=== PATIENT | male | born 1945 | race Caucasian/White ===

== ENCOUNTER 2019-08-05 13:44 | Inpatient (IN) | payer SELFPAY ==
[2019-08-05] VITALS (25 sets, daily range): BP systolic 83–151; BP diastolic 56–102; PULSE 47–87; RESP 12–26; TEMP 35.3–36.7; O2SAT 95–100; BMI 32.5; BMI 31.2
--- NOTE | 2019-08-05 14:01 | ED.DCSUM_ITS ---
- ER Visit Summary Date of Service: 08/05/19 Chief Complaint: Cardiac arrest History of Present Illness: The patient is a 74 M who presents by EMS after cardiac arrest. He has a history of HTN and BPH. No thinners. Witnessed fall at work. He was unresponsive. EMS found him in V. fib. He received 2 defibr illations, amnio 300 mg, and epinephrine x1. He had an iGel which was removed when he started regaining consciousness. On arrival, the patient is unable to provide history and has agonal respirations. The remainder of his history was obtained from his . She says that he was feeling well today. No recent illnesses. No known heart disease or history of blood clots. No other significant historical features. She says that he is full code, but if he is ever brain-, he would not want to be on life support. Physical Examination: Blood pressure 151/102. Heart rate 87. Temperature 95.6. Head and neck grossly atraumatic. Agonal respirations with coarse breath sounds. Heart regular. Abdomen soft. Skin appears slightly pale. Test Results: See below Emergency Department Course and Treatment: Patient was seen immediately on arrival. He had agonal respirations and a GCS of 6. He was intubated by me. He was pretreated with etomidate and succinylcholine. Glidescope was used and successful after one attempt. 7.5 ET tube was placed, 24 at the lip. Good breath sounds, quiet stomach, good capnography. Patient had 2 IVs placed. OG and Truj[place] placed. Hypothermia equipment is not available. He was started on propofol for sedation. ABG showed a pH of 7.25, CO2 45, oxygen 286. White count 11.7, platelets 148, potassium 3.1, chloride 108, glucose 287, creatinine 1.45. Troponin normal. Magnesium normal. Chest x-ray showed nothing significant except his ET tube was at the wellington. This was removed by 2 cm. Patient does have some agitation on propofol. He also received fentanyl. There was concern he may be posturing. CT brain was ordered. Patient was treated with potassium chloride for his hypokalemia. We are awaiting CT results. I have spoken with ICU, hospitalist, cardiology. CT brain is negative. Ultrasound is at the bedside checking an echocardiogram. If it is abnormal, he will go to cardiac catheterization. If it is normal, he will be monitored in the ICU. His pressures are improved after a fluid bolus. His sedation is improved after fentanyl. Family was updated. Hospitalist was updated. He will be admitted in ICU. Treatment Plan: As above Disposition: Admit to ICU Impression: 1. ROSC, VF arrest 2. Hypokalemia 3. Hyperglycemia This note was generated with [employer] dictation software. It may contain incorrect words, spelling, and punctuation that were not noted in review of the chart prior to signing ED Disposition - Plan for ED Patient: Referrals: Manjit Colmenares DO [Primary Care Provider] -
--- NOTE | 2019-08-05 14:02 | EKG12_ITS ---
Test Reason : REPEAT Blood Pressure : / mmHG Vent. Rate : 080 BPM Atrial Rate : 326 BPM P-R Int : 000 ms QRS Dur : 118 ms QT Int : 414 ms P-R-T Axes : 000 003 -54 degrees QTc Int : 477 ms Undetermined rhythm Septal infarct , age undetermined Abnormal ECG Confirmed by MALCOM MORAN ([id number]), science editor HEMA BEVERLY ([id number]) on 08/08/2019 11:16:48 AM Referred By: Venkata Gann Confirmed By:MALCOM MORAN
--- NOTE | 2019-08-05 14:08 | RAD_ITS ---
STUDY: X-RAY CHEST REASON FOR EXAM: Male, 74 years old. Chest pain. Post arrest. TECHNIQUE: Single AP portable view of the chest. COMPARISON: None. FINDINGS: An endotracheal tube is in situ. The tip is at the level of the wellington. It should be pulled back 3 cm. An orogastric tube is seen with the tip in the body of the stomach. Mass or congestion. There is no demonstrated pleural abnormality. There is borderline cardiomegaly. Normal mediastinum and pola. Normal visualized pulmonary arteries. There is atherosclerotic calcification of the aortic arch with tortuosity. Normal visualized thoracic spine. Normal visualized ribs, clavicles, and shoulders. There is no demonstrated abnormality of the visualized soft tissue structures of the upper abdomen. RAD/Chest 1 View (Portable) IMPRESSION: Gastric congestion. The tip of the endotracheal tube is at the level of the wellington. This should be pulled back 3 cm. Electronically Signed: Jerardo Aguillon, at 14:45 EST , Service support ,
--- NOTE | 2019-08-05 14:09 | CM.ED ---
Social Work Consult: Unresponsive Informant: Nursing staff Met with patient spouse, Berenice and son in [facility]. Emotional support and active listening provided. Sarah COUCH, ZOYA
--- NOTE | 2019-08-05 14:17 | CT_ITS ---
STUDY: CT BRAIN WITHOUT CONTRAST REASON FOR EXAM: Male, 74 years old. Unresponsive. Witnessed arrest. RADIATION DOSAGE (If Supplied By Facility): CTDIvol = ( 44.99 ) mGy, DLP = ( 812.98 ) mGycm TECHNIQUE: Transaxial CT imaging of the brain was performed without administration of intravenous contrast material. Individualized dose optimization techniques were used for this CT. COMPARISON: No relevant priors. FINDINGS: Normal soft tissue structures. Normal calvarium. There is mild cerebral atrophy with widening of the extra-axial spaces and ventricular dilatation. Normal white matter tracts of the cerebral hemispheres. Normal basal ganglia and thalami. Normal brainstem. Normal cerebellum. There is no intracranial hemorrhage. There are no findings of an acute ischemic infarction. Atherosclerotic calcification of the vertebral arteries and cavernous portions of the internal carotid arteries bilaterally. Normal visualized paranasal sinuses. CT/Brain/Head without Contrast IMPRESSION: Chronic involutional changes of the brain. N.B. : The above information has been verbally conveyed by Jerardo Aguillon to Andres Kayla on 08/05/2019 15:48:24 (ET). Electronically Signed: Jerardo Aguillon, at 15:51 EST , Service support ,
[2019-08-05 14:23] LABS: Absolute Lymphocyte Count 5.06 X10^3/uL (0.83-4.51); Absolute Neutrophil Count 5.2 X10^3/uL (2.0-7.7); Basophil% 0.9 % (0-1); Eosinophil# 0.08 X10^3/uL; Eosinophils% 0.7 % (0-5); Hemoglobin 14.3 g/dL (13.0-16.5); Lymphocyte # 5.06 X10^3/ul (4.0); Lymphocyte % 43.3 % (19-41); Mean Corp Hgb Conc 32.5 g/dL (32-36); Mean Corpuscular Hgb 29.9 pg (27.0-32.0); Mean Corpuscular Volume 92.1 fL (80-94); Mean Platelet Vol. 10.4 fl (6.2-12.0); Monocyte# 0.82 X10^3/uL; NRBC Flagged by Analyzer 0 % (0-5); Neutrophil # 5.17 X10^3/uL (2.7-7.7); Neutrophil % 44.2 % (47-70); POSITIVE DIFFERENTIAL YES; Platelet Count 148 K/mm3 (150-450); RBC Distribution Width CV 12.7 % (11.6-14.6); RBC Distribution Width SD 43.2 fl (35.1-43.9); Red Blood Count 4.78 M/mm3 (4.6-6.2); White Blood Count 11.7 K/mm3 (4.4-11.0)
[2019-08-05 14:28] LABS: Differential Indicated SCAN CRITERIA MET
[2019-08-05] MEDS: Propofol 10MG/Ml 1,000 MG/100 ML Bottle 5.6 MG CONT INF ×2 (14:30→17:30)
[2019-08-05 14:37] LABS: Anion Gap 12 (5-15); BUN 14 mg/dL (7-18); BUN/Creat Ratio 9.7 RATIO (10-20); Calcium,Total 8.9 mg/dL (8.5-10.1); Chloride 108 mmol/L (98-107); Creatinine, Serum 1.45 mg/dL (0.70-1.30); EST Glomerular Filtration Rate 50 mL/min (>60); Est Glom Filt Rate - Afr Amer 61 mL/min (>60); Estimated Creatinine Clearance 40.52 ml/min; Glucose 287 mg/dL (74-106); Magnesium 2.1 mg/dL (1.6-2.6); Potassium 3.1 mmol/L (3.5-5.1); Sodium Level 141 mmol/L (136-145)
[2019-08-05 14:46] LABS: Base Excess -7 mmol/L (-2 to +2); Bicarbonate 19.8 mmol/L (22-26); Blood Gas Specimen Type ART; FI02 100; Mode A-C; O2 Delivery Device Vent; PEEP 5; PO2 286 mmHG (75-100); RR 12; SITE R Brachial; SO2 100 % (95-99); Time Given 1437; Total Carbon Dioxide 21 mmol/L; Vt 450; pCO2 45.2 mmHg (35-45); pH 7.25 (7.35-7.45)
[2019-08-05] MEDS: fentaNYL 100 MCG/2 ML Ampul 50 MCG IV ×3 (15:04→16:18)
[2019-08-05] MEDS: 0.9% Normal Saline 1,000 ML 999 ML IV (15:18)
[2019-08-05 15:27] LABS: International Normalized Ratio 1.2; Prothrombin Time (Protime)PT. 14.7 SECONDS (11.7-14.9)
[2019-08-05 15:28] LABS: Partial Thromboplast Time 27.9 Seconds (24.1-36.2)
--- NOTE | 2019-08-05 15:41 | ECHOCS_ITS ---
Reason For Study: Arrhythmia Procedure This was a 2D Doppler, Color Flow transthoracic echocardiogram. The study was technically difficult. Contrast injection was performed. Exam performed portable in ED. Left Ventricle Moderately dilated left ventricle. The estimated ejection fraction is 35 %. Unable to assess diastolic dysfunction due to arrhythmia. There is moderate to severe global hypokinesis of the left ventricle. Right Ventricle Normal size and thickness. Normal systolic function. Atria The left atrium is moderately enlarged. Normal right atrium. Normal atrial septum. Mitral Valve The mitral valve is structurally normal. No prolapse or stenosis seen. Trivial mitral valve insufficiency. Tricuspid Valve Normal tricuspid valve. Mild (1+) tricuspid valve insufficiency. Right ventricular systolic pressure estimated to be 38 mmHg. Aortic Valve Trisinus/trileaflet aortic valve. Mild diffuse aortic valve thickening. There is no aortic stenosis. Pulmonic Valve The pulmonic valve is not well visualized. Great Vessels Normal aortic root. Normal arch. Normal inferior vena cava. Inferior vena cava collapse with sniff. Pericardium/Pleural No pericardial effusion. Medication Diluted definity 2ml given slow IV push to enhance endocardial definition. MMode/2D Measurements & Calculations LVIDd: 5.1 cm IVSd: 1.3 cm LA dimension: 4.1 cm LVIDs: 4.1 cm LVPWd: 0.94 cm FS: 19.2 % LAV(MOD-bp): 73.4 ml LVAd ap4: 38.2 cm2 SV(MOD-sp4): 50.4 ml LAV(MOD-sp2): 68.3 ml EDV(MOD-sp4): 149.8 ml LAV(MOD-sp4): 76.9 ml EDV(sp4-el): 156.1 ml LVAs ap4: 28.5 cm2 ESV(MOD-sp4): 99.5 ml ESV(sp4-el): 102.7 ml EF(MOD-sp4): 33.6 % EF(sp4-el): 34.2 % SV(sp4-el): 53.3 ml LA A4 area: 23.7 cm2 RA A4 area: 17.9 cm2 Doppler Measurements & Calculations MV E max holley: 92.6 cm/sec Ao V2 max: 172.4 cm/sec LV V1 max: 119.3 cm/sec Ao max P.9 mmHg LV V1 max P.7 mmHg Ao V2 mean: 104.4 cm/sec LV V1 mean P.5 mmHg Ao mean P.2 mmHg LV V1 mean: 70.3 cm/sec Ao V2 VTI: 33.7 cm LV V1 VTI: 22.7 cm PA V2 max: 137.7 cm/sec TR max holley: 239.3 cm/sec TR max P.9 mmHg Interpretation Summary Moderately dilated left ventricle. There is moderate to severe global hypokinesis of the left ventricle. The estimated ejection fraction is 35 %. Unable to assess diastolic dysfunction due to arrhythmia. The left atrium is moderately enlarged. Trivial mitral valve insufficiency. Mild (1+) tricuspid valve insufficiency. Right ventricular systolic pressure estimated to be 38 mmHg. Pt appears to be in atrial fibrillation. The study was technically difficult. There is no comparison study available. Contrast injection was performed. Ordering Physician: Andres Lemus Performed By: Sam Gunderson RCS
[2019-08-05 16:05] LABS: Base Excess -5 mmol/L (-2 to +2); Bicarbonate 21.3 mmol/L (22-26); Blood Gas Specimen Type ART; FI02 70; Mode A-C; O2 Delivery Device Vent; PEEP 5; PO2 104 mmHG (75-100); RR 12; SITE R Brachial; SO2 97 % (95-99); Time Given 1600; Total Carbon Dioxide 23 mmol/L; Vt 450; pCO2 42.1 mmHg (35-45); pH 7.31 (7.35-7.45)
[2019-08-05] MEDS: Potassium Chloride 10mEq/100mL 10 MEQ/100 ML IV.SOLN. 100 MEQ IV BOLUS ×4 (16:19→20:30)
--- NOTE | 2019-08-05 16:25 | CHAPLAIN ---
Type of Pastoral Visit _x__ Initial Visit ___ Follow-up Visit ___ On-call Visit ___ General Patient Visit ___ Spiritual Assessment ___ Family Conference ___ Bereavement ___ Rapid Response ___ Code Blue ___ Other (describe below) Pastoral Care Referral From ___ Patient _x__ Family ___ Nurse ___ Physician _x__ Digital Press Operator ___ Treating Plant Operator ___ Other (describe below) Sacrament/Intervention _x__ Active listening ___ Anointing ___ Jew ___ Bereavement ___ Communion _x__ Tatiana exploration ___ _x__ Life review _x__ Prayer ___ Reconciliation ___ Sacrament of Sick _x__ Supportive presence ___ Wedding ___ Other (describe below) Pastoral Comments large family; met first with spouse who indicated desire for spiritual care and support; met with many other family members as they arrived; escorted family members into room and gave presence and support; brought DR to the family for medical information; family members requested presence and prayer to be ongoing until they knew more of condition of patient; family is open to further visits; family is of the Faith tatiana and is deeply spiritual
[2019-08-05] MEDS: fentaNYL drip 100 ML 5 MCG IV (16:26)
--- NOTE | 2019-08-05 16:31 | CON.PCM_ITS ---
Problem List (1) Cardiac arrest with ventricular fibrillation Status: Acute (2) LV dysfunction Status: Acute (3) Diabetes Status: Acute (4) Atrial flutter Status: Acute Reason for Consult Date of Consultation: 08/05/19 Reason for Consultation: V. fib arrest, LV dysfunction, atrial flutter, diabetes, hypertension History of Present Illness: The patient is a 74 year old M with no known previous cardiac history, peripheral vascular disease status post carotid endarterectomy, diabetes, hypertension, non-smoker, does not see a manager decision support, currently intubated and unable to give a history due to recent V. fib cardiac arrest. History is obtained from the patient's family, particularly his , and their sons. 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 According to the family CPR was initiated relatively quickly, and 911 was called. Upon arrival the patient apparently was found to be in V. fib arrest, and required to defibrillatory shocks and converted him to atrial flutter with rapid ventricular response. He apparently got a bolus of amiodarone in the field. Patient was emergently brought to the emergency room where he was found to be combative, hypoxic, and was emergently intubated. Emergent CT scan of his head demonstrated no acute bleeding. Initial EKG in the field was somewhat problematic given motion artifact. EKG in the ER demonstrated atrial flutter with controlled ventricular response and a left bundle branch pattern. No associated ST elevation noted. No old EKGs to compare. On further history the family states that he denies any chest pain, angina, shortness of breath or dyspnea on exertion. He states that he has never been told he has atrial flutter, atrial fibrillation, had a CVA, TIA, or heart catheterization. They state that he had an echocardiogram but of them 20 years ago. He does not formally see a manager decision support. They report that he is compliant with his medications and is only on doxazosin. [] Past Medical History Allergies/Adverse Reactions: Allergies No Known Allergies Allergy (Verified 08/05/19 13:54) Home Medications: Ambulatory Orders Medication Instructions Recorded Doxazosin Mesylate [Cardura] 4 mg PO DAILY 08/05/19 Tamsulosin HCl 0.4 mg PO DINNER 08/05/19 Smoking Status: Never smoker Review of Systems - Review of Systems General: Denies: Fever, Night Sweats, Fatigue Cardiovascular: Denies: Chest Discomfort, Shortness of Breath, Orthopnea, PND, Peripheral Edema, Palpitations, Lightheadedness, Dizziness, Near Syncope, Syncope Respiratory: Denies: Cough, Sputum Production, Hemoptysis Gastrointestinal: Denies: Hematemesis, Hematochezia, Melena Genitourinary: Denies: Dysuria, Hematuria Skin: Denies: Rash Subjectve: Patient currently intubated, sedated, unresponsive to commands. Nonpurposeful movements of his hands suggestive of possible posturing from cerebrovascular anoxic brain injury. Objective: Vital Signs Temp Pulse Resp BP Pulse Ox 97.4 F L 55 L 16 88/61 L 97 08/05/19 16:00 08/05/19 16:00 08/05/19 16:00 08/05/19 16:00 08/05/19 16:00 Oxygen Flow Rate (L/min) 15 Oxygen Delivery Method Mechanical Ventilator Weight: 207 lb 7.28 oz Body Mass Index (BMI) 32.5 Finger Stick Blood Glucose 278 Intake and Output for Last 24 Hours 08/03/19 08/04/19 08/05/19 23:59 23:59 23:59 Intake Total 16.86 / 16.86 Balance 16.86 / 16.86 General: Awake, Alert, Oriented x 3 HEENT: PERRL, EOMI, Sclera Non Icteric Neck: Supple, Good ROM, No Lymph Node Enlargement Lungs: Clear to auscultation Cardiovascular: Irregular Rhythm, Normal S1, Normal S2, No Murmurs, No Rubs, No Gallops Vascular: No Carotid Bruits, Normal Femoral Pulses, Normal Radial Pulses, Normal Dorsalis Pedal Pulse, Normal Posterior Tibial Pulses Abdomen: Bowel Sounds Present, Soft, Non Tender, No HSM, No Organomegaly Extremities: No Cyanosis, No Clubbing, No edema Neurological: No Focal Motor or Sensory Deficit 08/05/19 13:55: WBC 11.7 H, RBC 4.78, Hgb 14.3, Hct 44.0, MCV 92.1, MCH 29.9, MCHC 32.5, Plt Count 148 L, MPV 10.4, Immature Gran % (Auto) 3.900 H, Neut % (Auto) 44.2 L, Lymph % (Auto) 43.3 H, Sublette % (Auto) 7.0, Eos % (Auto) 0.7, Baso % (Auto) 0.9, Absolute Neuts (auto) 5.2, Nucleated RBC % 0 08/05/19 13:55: Sodium 141, Potassium 3.1 L, Chloride 108 H, Carbon Dioxide 21.0, Anion Gap 12, BUN 14, Creatinine 1.45 H, Est GFR (MDRD) Af Amer 61, Est GFR (MDRD) Non-Af 50 L, BUN/Creatinine Ratio 9.7 L, Glucose 287 H, Calcium 8.9, Magnesium 2.1, Troponin I < 0.015 08/05/19 13:55: PT 14.7, INR 1.2, APTT 27.9 08/05/19 14:41: pH 7.25 L, Bicarbonate Actual 19.8 L, POC Total CO2 21, Base Excess -7 L, O2 Saturation 100 H, ABG pCO2 45.2 H, ABG pO2 286 H, Marcus Test NA 08/05/19 16:01: pH 7.31 L, Bicarbonate Actual 21.3 L, POC Total CO2 23, Base Excess -5 L, O2 Saturation 97, ABG pCO2 42.1, ABG pO2 104 H, Marcus Test NA Rhythm: EKG: ECHO: Stress Test: Cardiac Cath: PCI: CT Surgery: Holter monitor: EPS: PPM: CXR: Chest CT Scan: Assessment/Plan 1. V. fib arrest: The patient had V. fib arrest which apparently was witnessed with initiation of CPR relatively quickly followed by 911 EMS deployment followed by defibrillation x2 in the field. His EKG does not have overt ST segment elevation although he does have an intraventricular conduction delay in the left bundle branch block, there is no overt J-point elevation. His stat echocardiogram demonstrates severe global LV dysfunction with EF around 30 to 35% with no localized wall motion abnormalities. It is unclear whether this is an old finding as he has not had an echocardiogram or seen a manager decision support in many many years. According to the family and they have no known knowledge of atrial fibrillation, atrial flutter, or poor LV function. It is possible his LV dysfunction is acute as a result of his V. fib arrest. In addition patient has very poor mental status at this time and is unclear whether he may have suffered anoxic brain injury. His preliminary CT scan findings showed no overt bleeding. I recommend the patient be started on amiodarone drip for his arrhythmia and LV dysfunction and hopefully this may convert him to normal sinus rhythm to assist with his atrial kick and LV dysfunction. I recommended that we hold off on emergent catheterization this evening until such time as we can better assess his brain function from his cardiac arrest. The patient has evidence of anoxic brain injury I would not recommend catheterization. If however the patient's mental status improves or normalizes, patient will require a diagnostic left heart catheterization. As his head scan appears to be okay from a bleeding standpoint I believe it is reasonable to proceed with IV heparin drip to keep his PTT between 50 and 70. This will also assist us as he may have also had a pulmonary embolism given his relatively low arterial concentration on his ABG. Consideration may want to be made for a CT scan with contrast to rule out pulmonary embolism. 2. Atrial flutter: Patient's family states that they are unaware whether he has any kind of atrial arrhythmias and he is currently on no anticoagulation. Recommend continuing amiodarone drip and anticoagulation with IV heparin drip. Patient most likely benefit from normalization of his rhythm which can be done as an outpatient should he clinically improved. 3. Hypotension: We will hold off on beta-blockers or FERNANDO inhibitors at this time until he is medically stabilized. 4. I had a long thorough discussion with the patient's family, and explained and answered all their questions, and I recommended we hold off on catheterization until we get better determination of his mental status or other possible ailments in the differential diagnosis. 5. Thank you very much for the opportunity to participate in the cardiac care of your patient. Discussed with Dr. Gann. Consultation time took place between 345 and 4:45 PM. Code Visit Inpatient E&M: 77078 Init Hosp L3
--- NOTE | 2019-08-05 17:24 | CHAPLAIN ---
Type of Pastoral Visit ___ Initial Visit _x__ Follow-up Visit ___ On-call Visit ___ General Patient Visit ___ Spiritual Assessment ___ Family Conference ___ Bereavement ___ Rapid Response ___ Code Blue ___ Other (describe below) Pastoral Care Referral From ___ Patient _x__ Family ___ Nurse ___ Physician ___ Washery Boss ___ Toolsmith ___ Other (describe below) Sacrament/Intervention _x__ Active listening ___ Anointing ___ Caodaism ___ Bereavement ___ Communion ___ Tatiana exploration ___ ___ Life review _x__ Prayer ___ Reconciliation ___ Sacrament of Sick _x__ Supportive presence ___ Wedding ___ Other (describe below) Pastoral Comments checked in with family and escorted them to ICU waiting room; distributed coffee and water and got this large family settled for their wait; notified RN of family presence; family gathered into [place] and they asked the speech pathology assistant for a prayer with them
--- NOTE | 2019-08-05 17:40 | RAD_ITS ---
STUDY: X-RAY CHEST REASON FOR EXAM: Male, 74 years old. Endotracheal tube tip placement. TECHNIQUE: Single frontal view of the chest. COMPARISON: August 05, 2019. FINDINGS: Endotracheal tube tip is in the midthoracic trachea. Poor respiratory effort. Gastric tube tip in the proximal stomach. Cardiac silhouette unremarkable. Pulmonary vascularity unremarkable. Aorta unremarkable. No focal airspace consolidation. No pleural effusions. A nodular density above the left hilum likely represents a normal hilar structure. Upper abdomen unremarkable. Osseous structures intact. No pneumothorax. RAD/Chest 1 View (Portable) IMPRESSION: Endotracheal tube tip in the mid thoracic trachea. Electronically Signed: Reynold Gómez, at 18:56 EST Tel , Service support ,
--- NOTE | 2019-08-05 17:44 | CON.PCM_ITS ---
Problem List (1) Cardiac arrest with ventricular fibrillation Status: Acute (2) LV dysfunction Status: Acute (3) Diabetes Status: Acute (4) Atrial flutter Status: Acute Reason for Consult Date of Consultation: 08/05/19 Reason for Consultation: Cardiac arrest History of Present Illness: The patient is a 74 year old M, with past medical history significant for hypertension and BPH, who presented to [facility] on 08/05/2019 via EMS secondary to a cardiac arrest. Patient was reportedly witnessed to fall at work and become unresponsive. EMS had found him in V. fib. Patient did receive 2 defibrillations, amiodarone and epinephrine. Patient reportedly did have an iGel placed initially in the field, but this was removed when he started to regain consciousness. Reportedly, on arrival to the ER, patient was having agonal breathing and was intubated emergently. Emergency department reports that GCS was 6 and was intubated for airway protection using rapid sequence. Patient did have some difficulty with sedation initially. ABG showed a metabolic acidosis with inadequate respiratory compensation. Endotracheal tube was noted to be deep, so this was withdrawn. Patient reportedly had posturing so a CT scan was ordered of the head. Patient was also noted to be hypokalemic. Patient was seen by cardiology in the ER and had an emergent bedside echo. Patient was then transferred to the intensive care unit for further evaluation. No family is at the bedside at this time to provide additional information. All history is from the medical record and speaking with physicians of record. Past Medical History Allergies No Known Allergies Allergy (Verified 08/05/19 13:54) Home Medications: Ambulatory Orders Medication Instructions Recorded Doxazosin Mesylate [Cardura] 4 mg PO DAILY 08/05/19 Tamsulosin HCl 0.4 mg PO DINNER 08/05/19 Smoking Status: Never smoker Review of Systems Unable to obtain accurate/complete ROS d/t: See HPI Patient Problems: Active and Suspected Problems Cardiac arrest with ventricular fibrillation (Acute) LV dysfunction (Acute) Diabetes (Acute) Atrial flutter (Acute) Objective: All chest x-rays were personally reviewed and do not show any acute infiltrate. Patient has not been here previously. Echocardiogram shows an EF of 35% with elevated PASP - Physical Exam Vitals/I&O's: Vital Signs Temp Pulse Resp BP Pulse Ox 36.2 C L 58 L 14 123/85 H 100 08/05/19 17:00 08/05/19 17:25 08/05/19 17:25 08/05/19 17:00 08/05/19 17:25 Oxygen Flow Rate (L/min) 15 Oxygen Delivery Method Mechanical Ventilator Weight: 94.1 kg Body Mass Index (BMI) 32.5 Finger Stick Blood Glucose 278 Intake and Output for Last 24 Hours 08/03/19 08/04/19 08/05/19 23:59 23:59 23:59 Intake Total 1027.96 / 1027.96 Balance 1027.96 / 1027.96 General: - - Intubated and sedated. Good vent synchrony. Obese. HEENT: Atraumatic, PERRLA, EOMI, Normocephalic, - - No scleral icterus or injection noted Oral: Moist Mucosa, No Gingival or Mucosal Lesions/ Ulcerations Neck: Supple, No JVD, No Nodes, Trachea Midline Lungs: No rhonchi, No wheeze, No rales, Diminished, - - Symmetric expansion. No dullness to percussion. 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 Does withdrawal to pain. Will open eyes, but not following commands. Positive cough and gag reflexes. Psych/Mental Status: Flat Affect Laboratory Results 08/05/19 13:55: WBC 11.7 H, RBC 4.78, Hgb 14.3, Hct 44.0, MCV 92.1, MCH 29.9, MCHC 32.5, RDW Std Deviation 43.2, RDW Coeff of Arturo 12.7, Plt Count 148 L, MPV 10.4, Immature Gran % (Auto) 3.900 H, Neut % (Auto) 44.2 L, Lymph % (Auto) 43.3 H, [place] % (Auto) 7.0, Eos % (Auto) 0.7, Baso % (Auto) 0.9, Absolute Neuts (auto) 5.2, Absolute Lymphs (auto) 5.06 H, Nucleated RBC % 0, Differential Comment COMMENT 08/05/19 13:55: Sodium 141, Potassium 3.1 L, Chloride 108 H, Carbon Dioxide 21.0, Anion Gap 12, BUN 14, Creatinine 1.45 H, Estim Creat Clear Calc 40.52, Est GFR (MDRD) Af Amer 61, Est GFR (MDRD) Non-Af 50 L, BUN/Creatinine Ratio 9.7 L, Glucose 287 H, Calcium 8.9, Magnesium 2.1, Troponin I < 0.015 08/05/19 13:55: PT 14.7, INR 1.2, APTT 27.9 08/05/19 14:41: Specimen Type ART, Sample Site R Brachial, pH 7.25 L, Bicarbonate Actual 19.8 L, POC Total CO2 21, Base Excess -7 L, O2 Saturation 100 H, O2 % 100, ABG pCO2 45.2 H, ABG pO2 286 H, Marcus Test NA, Respiration Rate 12, O2 Delivery Device Vent, Minute Volume 11.00, Vent Mode A-C, Tidal Volume 450, POC PEEP 5, Blood Gas Notified Whom ED MD, Blood Gas Notified Time 1437 08/05/19 16:01: Specimen Type ART, Sample Site R Brachial, pH 7.31 L, Bicarbonate Actual 21.3 L, POC Total CO2 23, Base Excess -5 L, O2 Saturation 97, O2 % 70, ABG pCO2 42.1, ABG pO2 104 H, Marcus Test NA, Respiration Rate 12, O2 Delivery Device Vent, Vent Mode A-C, Tidal Volume 450, POC PEEP 5, Blood Gas Notified Whom ED MD, Blood Gas Notified Time 1600 Clinical Impression(s) from Imaging Studies Chest X-Ray 08/05/19 14:08 IMPRESSION: Gastric congestion. The tip of the endotracheal tube is at the level of the [place]. This should be pulled back 3 cm. Electronically Signed: Jerardo Aguillon, at 14:45 EST , Service support , Brain CT 08/05/19 14:17 IMPRESSION: Chronic involutional changes of the brain. N.B. : The above information has been verbally conveyed by Jerardo Aguillon to Andres Garza on 08/05/2019 15:48:24 (ET). Electronically Signed: Jerardo Aguillon, at 15:51 EST , Service support , ADDENDUM: 08/05/19 1558 IMPRESSION: Chronic involutional changes of the brain. N.B. : The above information has been verbally conveyed by Jerardo Aguillon to Andres Garza on 08/05/2019 15:48:24 (ET). Electronically Signed: Jerardo Aguillon, at 15:51 EST , Service support , Current Medications Propofol (Diprivan) 1,000 mg in 100 mls @ 5.646 mls/hr CONT INF .Q12H OSMIN; Protocol Last Titration: 08/05/19 16:53 Dose: Infused Documented by: Potassium Chloride () 10 meq in 100 mls @ 100 mls/hr IV BOLUS Q1H OSMIN Stop: 08/05/19 19:14 Last Admin: 08/05/19 16:19 Dose: 100 mls/hr Documented by: Fentanyl () 100 mls @ 5 mls/hr IV UD OSMIN; Protocol Last Titration: 08/05/19 16:53 Dose: 100 mcg/hr, 10 mls/hr Documented by: Amiodarone HCl 360 mg/ (Dextrose) 200 mls @ 33.333 mls/hr CONT INF .Q6H OSMIN Stop: 08/05/19 22:59 Amiodarone HCl 360 mg/ (Dextrose) 200 mls @ 16.667 mls/hr CONT INF .Q12H OSMIN Stop: 08/06/19 16:59 Assessment/Plan Active and Suspected Problems Cardiac arrest with ventricular fibrillation (Acute) LV dysfunction (Acute) Diabetes (Acute) Atrial flutter (Acute) RECOMMENDATIONS: 1. Continue mechanical ventilation overnight, propofol and fentanyl for sedation and pain 2. Spontaneous awakening and breathing trial per protocol 3. Wean oxygen as tolerated 4. Amiodarone per cardiology 5. N.p.o. Sliding scale insulin 6. GI prophylaxis with Pepcid and heparin drip per cardiology IMPRESSIONS: 1. V. fib arrest/hypokalemia Patient is opening eyes spontaneously. Patient has had ROSC and appears to be doing okay at this time. Transient hypotension appears to be secondary to sedative medications. Continue to monitor closely. We will continue with a heparin drip for now. Patient may require heart catheterization in the future. Patient is hypokalemic at this time. This may be a possible etiology. Cycle troponins per cardiology. 2. New onset a flutter Patient reportedly does not have a history of A. fib. Patient has not been treated here previously. Patient does have a depressed EF with atrial enlargement. Patient is on amiodarone at this time. Blood pressure appears to be doing okay. Patient does have an element of bradycardia. Unclear duration, so patient likely should not have cardioversion and less emergent. 3. Systolic congestive heart failure Unclear chronicity. Patient does not appear to follow with physicians regularly. Patient does have an EF of 30 to 35%. Unclear if this is secondary to acute event. Cardiology is currently following. Agree with holding on beta- blockers for now. 4. Acute respiratory failure Likely secondary to #1. Patient did not have acute compensation to metabolic acidosis. Continue with mechanical ventilation overnight. Spontaneous awakening breathing trials per protocol. Unclear if patient has an element of obstructive lung disease, but peak airway pressures appear to be appropriate at this time. 5. BPH/advanced age/poor medical history/elevated creatinine Complicates care, management, recovery and prognosis. Trujillo in place. Monitor urine output. Poor historian. Unclear if patient's creatinine of 1.45 is his baseline versus other lab values. Patient also has an elevated glucose indicating diabetes mellitus. This is not known by the family. Initial troponin is negative. TIME: 45 minutes critical care time spent addressing patient's cardiac arrest, respiratory failure, possible renal failure, a flutter, review of all data and collaboration with care team (5 PM to 6 PM). Code Visit 9xxxx: [id number] Critical care first hour
[2019-08-05] MEDS: 0.9% Normal Saline 1,000 ML 125 ML IV (18:49)
[2019-08-05] MEDS: Aspirin 81 MG TAB.CHEW NG (18:49)
--- NOTE | 2019-08-05 18:49 | HP.PCM_ITS ---
Problem List (1) Cardiac arrest with ventricular fibrillation Status: Acute History of Present Illness Date of Admission: 08/05/19 Chief Complaint: Cardiac arrest with ventricular fibrillation The patient is a 74 year old M was seen in the emergency room at [facility] after being brought in by squad after he collapsed at work today-this was witnessed. Patient was bending over to lift the stool and slowly collapsed to the floor according to his family members. Upon arrival, squad noted the patient to be in V. fib and performed two defibrillations, during CPR he was given 1 amp of epinephrine and he was given a bolus of amiodarone. Patient was not intubated in the field, upon his arrival to the emergency room the patient was intubated and labs were obtained. Review of systems was unable to be obtained due to the fact the patient was intubated and sedated. EKG showed what appeared to be at a rate of approximately 80, left bundle branch block pattern was noted to be present, there were occasional PVCs noted. Chest x-ray showed no acute pulmonary process, CT of the brain revealed chronic involutional changes. Lab work showed a white blood cell count of 11.7, potassium was low at 3.1, creatinine was elevated at 1.45, glucose was 287, troponin was normal. Patient had an arterial blood gas obtained on 100% O2 on the ventilator: pH 7.25, PCO2 was 45, PO2 was 286. Cardiology was contacted, limited echocardiogram was obtained in the emergency room which showed a decreased ejection fraction, cardiology elected not to take the patient to cardiac catheterization at this time and the patient was admitted to ICU for further care. Past Medical History Allergies No Known Allergies Allergy (Verified 08/05/19 13:54) Home Medications: Ambulatory Orders Medication Instructions Recorded Doxazosin Mesylate [Cardura] 4 mg PO DAILY 08/05/19 Tamsulosin HCl 0.4 mg PO DINNER 08/05/19 Surgical History: - - History of carotid endarterectomy Psychiatric History: No pertinent psych hx Lives: Spouse/ Significant Other Smoking Status: Never smoker Tobacco Use: Non-smoker Alcohol: None Drugs: None - *Family History Maternal History Items: No pertinent history Paternal History Items: No pertinent history Review of Systems Comment: Review of systems was unable to be obtained due to the fact the patient was on mechanical ventilation and sedated. Medical information was obtained from his family who was present at the time of my examination VTE Information - Inpt Only VTE Present on Admission: No VTE Mechan Device Prophylaxis: None VTE Pharm Prophylaxis ordered?: No Reason prophylaxis not ordered:: Medical Contraindication Patient Problems: Active and Suspected Problems Cardiac arrest with ventricular fibrillation (Acute) LV dysfunction (Acute) Diabetes (Acute) Atrial flutter (Acute) - Physical Exam Vitals/I&O's: Vital Signs Temp Pulse Resp BP Pulse Ox 97.2 F L 54 L 14 123/85 H 100 08/05/19 17:00 08/05/19 18:29 08/05/19 17:25 08/05/19 17:00 08/05/19 17:25 Oxygen Flow Rate (L/min) 15 Oxygen Delivery Method Mechanical Ventilator Weight: 90.6 kg Body Mass Index (BMI) 31.2 Finger Stick Blood Glucose 278 Intake and Output for Last 24 Hours 08/03/19 08/04/19 08/05/19 23:59 23:59 23:59 Intake Total 1127.96 / 1127.96 Balance 1127.96 / 1127.96 General: - - Patient is sedated and on the ventilator, he moves all extremities and responds to painful stimuli HEENT: Atraumatic, PERRLA, Normocephalic Oral: Moist Mucosa Neck: Supple, No JVD, Negative Carotid Bruits, Trachea Midline, Thyroid Normal Size and Texture Lungs: Clear to auscultation, Normal air movement, No rhonchi, No wheeze, No rales Cardiovascular: Regular rate, Regular Rhythm, Normal S1, Normal S2, No murmurs Abdomen: Bowel Sounds Present, Soft, Non Tender, Non-Distended, No hernias noted Extremities: No clubbing, No cyanosis, No edema, Capillary Refill Less than 3 Seconds Skin: No rashes, No breakdown Musculoskeletal: No Tenderness to Palpation of Joints or Extremities Neurological: Cranial nerves II-XII grossly intact, - - Sedated and on the ventilator-there is some withdrawal to painful stimuli Psych/Mental Status: - - Patient is sedated and on the ventilator Laboratory Results 08/05/19 13:55: WBC 11.7 H, RBC 4.78, Hgb 14.3, Hct 44.0, MCV 92.1, MCH 29.9, MCHC 32.5, RDW Std Deviation 43.2, RDW Coeff of Arturo 12.7, Plt Count 148 L, MPV 10.4, Immature Gran % (Auto) 3.900 H, Neut % (Auto) 44.2 L, Lymph % (Auto) 43.3 H, [place] % (Auto) 7.0, Eos % (Auto) 0.7, Baso % (Auto) 0.9, Absolute Neuts (auto) 5.2, Absolute Lymphs (auto) 5.06 H, Nucleated RBC % 0, Differential Comment COMMENT 08/05/19 13:55: Sodium 141, Potassium 3.1 L, Chloride 108 H, Carbon Dioxide 21.0, Anion Gap 12, BUN 14, Creatinine 1.45 H, Estim Creat Clear Calc 40.52, Est GFR (MDRD) Af Amer 61, Est GFR (MDRD) Non-Af 50 L, BUN/Creatinine Ratio 9.7 L, Glucose 287 H, Calcium 8.9, Magnesium 2.1, Troponin I < 0.015 08/05/19 13:55: PT 14.7, INR 1.2, APTT 27.9 08/05/19 14:41: Specimen Type ART, Sample Site R Brachial, pH 7.25 L, Bicarbonate Actual 19.8 L, POC Total CO2 21, Base Excess -7 L, O2 Saturation 100 H, O2 % 100, ABG pCO2 45.2 H, ABG pO2 286 H, Marcus Test NA, Respiration Rate 12, O2 Delivery Device Vent, Minute Volume 11.00, Vent Mode A-C, Tidal Volume 450, POC PEEP 5, Blood Gas Notified Whom ED MD, Blood Gas Notified Time 1437 08/05/19 16:01: Specimen Type ART, Sample Site R Brachial, pH 7.31 L, Bicarbonate Actual 21.3 L, POC Total CO2 23, Base Excess -5 L, O2 Saturation 97, O2 % 70, ABG pCO2 42.1, ABG pO2 104 H, Marcus Test NA, Respiration Rate 12, O2 Delivery Device Vent, Vent Mode A-C, Tidal Volume 450, POC PEEP 5, Blood Gas Notified Whom ED MD, Blood Gas Notified Time 1600 Current Medications Chlorhexidine Gluconate () 15 ml PO BID OSMIN Dextrose (D50w Syringe) 0 gm IV X1 PRN; Protocol PRN Reason: Hypoglycemia Glucagon () 1 mg IM .X1 PRN PRN Reason: Hypoglycemia Heparin Sodium (Porcine) (Heparin Na) 0 unit IV UD PRN; Protocol Propofol (Diprivan) 1,000 mg in 100 mls @ 5.646 mls/hr CONT INF .Q12H OSMIN; Protocol Last Titration: 08/05/19 16:53 Dose: Infused Documented by: Potassium Chloride () 10 meq in 100 mls @ 100 mls/hr IV BOLUS Q1H OSMIN Stop: 08/05/19 19:14 Last Admin: 08/05/19 18:13 Dose: 100 mls/hr Documented by: Fentanyl () 100 mls @ 5 mls/hr IV UD OSMIN; Protocol Last Titration: 08/05/19 16:53 Dose: 100 mcg/hr, 10 mls/hr Documented by: Amiodarone HCl 360 mg/ (Dextrose) 200 mls @ 33.333 mls/hr CONT INF .Q6H OSMIN Stop: 08/05/19 22:59 Last Admin: 08/05/19 18:13 Dose: 1 mg/min, 33.3 mls/hr Documented by: Amiodarone HCl 360 mg/ (Dextrose) 200 mls @ 16.667 mls/hr CONT INF .Q12H OSMIN Stop: 08/06/19 16:59 Sodium Chloride () 250 mls @ 15 mls/hr IV .L10P17M PRN PRN Reason: Saline Flush Sodium Chloride () 1,000 mls @ 125 mls/hr IV .Q8H OSMIN Heparin Sodium/Dextrose () 25,000 units in 250 mls @ 12 mls/hr IV .O13P44O OSMIN; Protocol Insulin Human Lispro (Humalog Kwikpen (Bkc)) 0 unit SC Q6 OSMIN; Protocol Sodium Chloride () 10 - 40 ml IV UD PRN PRN Reason: SALINE FLUSH Assessment/Plan All Active Problems Cardiac arrest with ventricular fibrillation (Acute) LV dysfunction (Acute) Diabetes (Acute) Atrial flutter (Acute) #1 cardiac arrest with ventricular fibrillation-converted to atrial flutter- etiology unclear, cardiac enzymes will be cycled, patient will be seen by cardiology in consultation and critical care, patient will be anticoagulated with IV heparin, it is possible he will undergo a cardiac catheterization tomorrow. Patient will be given Plavix and aspirin. Prognosis is guarded at this time #2 respiratory arrest secondary to #1-patient is currently on the ventilator and will be seen by critical care #3 type 2 diabetes-patient's blood sugars will be monitored #4 hypokalemia-patient will be given replacement potassium, labs will be monitored #5 essential hypertension-patient takes Cardura, this will be held at this time #6 BPH-patient is on Flomax-this will be held at this time Code Visit Inpatient E&M: 22182 Init Hosp L3
[2019-08-05] MEDS: Insulin Lispro 100 UNIT/ML INSULN.PEN SC (18:51)
[2019-08-05 19:01] LABS: Bedside Glucose 171 mg/dL (70-110)
--- NOTE | 2019-08-05 19:02 | ECHOCS_ITS ---
Reason For Study: CARDIAC ARREST Procedure This was a 2D Doppler, Color Flow transthoracic echocardiogram. Pt on vent. Technically difficult study. Exam performed portable in ICU/CCU. Left Ventricle Moderately dilated left ventricle. The estimated ejection fraction is 35 %. Unable to assess diastolic dysfunction due to arrhythmia. No regional wall motion abnormalities noted. Right Ventricle Normal size and thickness. Normal systolic function. Atria The left atrium is moderately enlarged. Normal right atrium. Normal atrial septum. Mitral Valve The mitral valve is structurally normal. No prolapse or stenosis seen. Tricuspid Valve Normal tricuspid valve. Mild (1+) tricuspid valve insufficiency. Right ventricular systolic pressure estimated to be 45 mmHg. Aortic Valve Trisinus/trileaflet aortic valve. Mild diffuse aortic valve thickening. Pulmonic Valve Normal pulmonic valve. Great Vessels Normal aortic root. Normal arch. The inferior vena cava is dilated. No collapse of the inferior vena cava. Pericardium/Pleural No pericardial effusion. Medication Diluted definity 4ml given slow IV push to enhance endocardial definition. MMode/2D Measurements & Calculations LVIDd: 5.3 cm IVSd: 0.91 cm Ao root diam: 3.1 cm LVIDs: 4.4 cm LVPWd: 0.71 cm FS: 17.2 % LAV(MOD-bp): 79.4 ml LVAd ap4: 30.0 cm2 SV(MOD-sp4): 31.5 ml LAV(MOD-bp) Indexed: 39.1 ml/m2 EDV(MOD-sp4): 94.2 ml LAV(MOD-sp2): 73.7 ml EDV(sp4-el): 98.6 ml LAV(MOD-sp4): 85.9 ml LVAs ap4: 22.2 cm2 ESV(MOD-sp4): 62.7 ml ESV(sp4-el): 62.3 ml EF(MOD-sp4): 33.5 % EF(sp4-el): 36.8 % SV(sp4-el): 36.3 ml LA A4 area: 26.4 cm2 LA dimension(2D): 5.0 cm RA A4 area: 20.8 cm2 Doppler Measurements & Calculations MV E max holley: 108.7 cm/sec Ao V2 max: 192.4 cm/sec LV V1 max: 103.9 cm/sec Ao max P.8 mmHg LV V1 max P.3 mmHg PA V2 max: 204.2 cm/sec TR max holley: 315.8 cm/sec TR max P.9 mmHg Interpretation Summary Moderately dilated left ventricle. The estimated ejection fraction is 35 %. Unable to assess diastolic dysfunction due to arrhythmia. The left atrium is moderately enlarged. Mild (1+) tricuspid valve insufficiency. Right ventricular systolic pressure estimated to be 45 mmHg. Compared to echo report dated 07/05/2019, no appreciable changes noted. Pt appears to be in atrial flutter with junctional escape rhythm. Ordering Physician: Venkata Gann Referring Physician: SANDRO HAYES Performed By: Umu Reese RDCS
[2019-08-05] MEDS: Heparin Injection (Vial) 5,000 UNIT/ML VIAL 6000 UNIT IV (19:35)
[2019-08-05] MEDS: HEPARIN/D5w 25,000 UNITS 25,000 UNITS/250 ML IV.SOLN. 12 UNITS IV (19:41)
[2019-08-05] MEDS: Clopidogrel Bisulfate 300 MG Tablet NG (19:50)
[2019-08-05] MEDS: Chlorhexidine 15 ML PO (22:52)
[2019-08-05] MEDS: Famotidine 200 MG/20 ML MDV 20 MG in 0.9% Normal Saline (Pres. free 8 ML 300 MG IV (22:52)
[2019-08-06] VITALS (51 sets, daily range): BP systolic 69–145; BP diastolic 54–90; PULSE 47–77; RESP 14–21; TEMP 36.2–37.8; O2SAT 92–99
[2019-08-06] MEDS: DOPamine IV 800 MG/250 ML IV.SOLN. CONT INF (00:54)
--- NOTE | 2019-08-06 01:08 | NURSING ---
Dr. Anton in room at bedside to attempt RIJ placement. in waiting area updated and signed consent.
[2019-08-06] MEDS: TITRATION PARAMETER CHANGE 1 EACH IV (01:25)
--- NOTE | 2019-08-06 01:27 | RAD_ITS ---
HISTORY: [facility] - Chest ADDITIONAL HISTORY: None provided. COMPARISON: None TECHNIQUE: Frontal chest radiograph. Number of images including paperwork: 2 FINDINGS: LUNGS AND PLEURA: Mild right hemidiaphragm elevation. Mild retrocardiac opacity. No sizable pleural effusion or pneumothorax. CARDIAC SILHOUETTE: Unremarkable. MEDIASTINUM AND ADELITA: Unremarkable. UPPER ABDOMEN: Unremarkable. SKELETON AND SOFT TISSUES: No acute findings. OTHER DEVICES AND HARDWARE: Endotracheal tube tip in the mid thoracic trachea. Gastric tube extends into the stomach, tip below the film. Right-sided central venous catheter tip at the cavoatrial junction. RAD/CXR for Line Placement IMPRESSION: Right-sided central venous catheter tip at the cavoatrial junction. Mild retrocardiac atelectasis versus infiltrate. at 0210 Reported and signed by: Darlene Carlos MD Electronically Signed: Darlene Carlos MD at 2:10 EST Tel , Service support ,
[2019-08-06 02:13] LABS: Partial Thromboplast Time 114.3 Seconds (24.1-36.2)
--- NOTE | 2019-08-06 02:18 | PCM.OP.PRO ---
Problem List (1) Cardiac arrest with ventricular fibrillation Status: Acute Procedure Report Date of Procedure: 08/06/19 Procedure is right internal jugular triple lumen catheter placement Indication was for emergent IV access for pressor medication Consent was obtained through the family with the nurse to describe the risks and benefits associated with the procedure Description: Using ultrasound guidance, the right internal jugular vein was identified. And then the area was prepped and draped in a sterile fashion. Using modified Seldinger technique, a triple lumen catheter was advanced over guidewire. All ports flushed and gopal easily. The treatment catheter was sutured in place. Findings: Follow-up chest x-ray showed no pneumothorax and the treatment catheter above the atrium. Code Visit Procedures: 93025 Insert Non-tunnel CV Cath
[2019-08-06 03:01] LABS: Bedside Glucose 143 mg/dL (70-110)
[2019-08-06] MEDS: 0.9% Normal Saline 1,000 ML 125 ML IV ×3 (03:17→19:42)
[2019-08-06] MEDS: Propofol 10MG/Ml 1,000 MG/100 ML Bottle 2.8 MG CONT INF (03:30)
[2019-08-06 03:46] LABS: Absolute Lymphocyte Count 0.81 X10^3/uL (0.83-4.51); Absolute Neutrophil Count 9.8 X10^3/uL (2.0-7.7); Basophil# 0.03 X10^3/uL; Basophil% 0.3 % (0-1); Hematocrit 40.2 % (40-54); Hemoglobin 13.2 g/dL (13.0-16.5); Lymphocyte # 0.81 X10^3/ul (4.0); Lymphocyte % 6.9 % (19-41); Mean Corp Hgb Conc 32.8 g/dL (32-36); Mean Corpuscular Hgb 30.3 pg (27.0-32.0); Mean Corpuscular Volume 92.2 fL (80-94); Mean Platelet Vol. 10.6 fl (6.2-12.0); Monocyte# 1.07 X10^3/uL; Monocyte% 9.1 % (0-10); NRBC Flagged by Analyzer 0 % (0-5); Neutrophil # 9.76 X10^3/uL (2.7-7.7); Neutrophil % 83.3 % (47-70); Platelet Count 146 K/mm3 (150-450); RBC Distribution Width CV 13.1 % (11.6-14.6); RBC Distribution Width SD 43.7 fl (35.1-43.9); Red Blood Count 4.36 M/mm3 (4.6-6.2); White Blood Count 11.7 K/mm3 (4.4-11.0)
--- NOTE | 2019-08-06 04:10 | NURSING ---
Trujillo catheter placed in ED noted to have become dislodged, balloon not filled with fluid. Trujillo cath replaced at this time. Trujillo replacement Ok by Dr. Anton.
[2019-08-06 04:17] LABS: Anion Gap 7 (5-15); BUN 22 mg/dL (7-18); Calcium,Total 8.9 mg/dL (8.5-10.1); Chloride 112 mmol/L (98-107); Creatinine, Serum 2.21 mg/dL (0.70-1.30); EST Glomerular Filtration Rate 31 mL/min (>60); Est Glom Filt Rate - Afr Amer 37 mL/min (>60); Estimated Creatinine Clearance 26.59 ml/min; Glucose 139 mg/dL (74-106); Potassium 4.9 mmol/L (3.5-5.1); Sodium Level 141 mmol/L (136-145)
[2019-08-06] MEDS: fentaNYL drip 100 ML 7.5 MCG IV ×2 (04:30→16:48)
[2019-08-06 06:41] LABS: Partial Thromboplast Time 60.9 Seconds (24.1-36.2)
--- NOTE | 2019-08-06 06:54 | RAD_ITS ---
STUDY: X-RAY - ABDOMEN/PELVIS REASON FOR EXAM: Male, 74 years old. Abdominal distention. TECHNIQUE: Single AP view of the abdomen / pelvis. COMPARISON: None. FINDINGS: An enteric tube is seen with the tip in the fundal portion of the stomach. There is an unremarkable bowel gas pattern. The visualized liver, spleen and kidneys are grossly normal in size and morphology. There are calcified phleboliths in the pelvis. Normal visualized osseous structures. RAD/Abdomen Single View (Portable) IMPRESSION: Nonspecific bowel gas pattern. Electronically Signed: Jerardo Aguillon, at 10:37 EST , Service support ,
--- NOTE | 2019-08-06 07:15 | PCM.PN.INT ---
Subjective: Patient with hypotension and bradycardia overnight requiring placement of a central line and initiation of dopamine therapy. Patient was supratherapeutic on heparin drip, but no bleeding complications have been reported. Patient's has reported significant abdominal distention from baseline, but nursing is not reporting any significant OG output. No diarrhea or emesis has been reported. Patient was unable to tolerate a spontaneous awakening trial this morning. General: - - Intubated and sedated. RASS -2. Will make eye contact and follow simple commands HEENT: Atraumatic, PERRLA, EOMI, Normocephalic, - - Injection without icterus Oral: Moist Mucosa, No Gingival or Mucosal Lesions/ Ulcerations Neck: Supple, No JVD, No Nodes, Trachea Midline Lungs: No rhonchi, No wheeze, No rales, Diminished Cardiovascular: Normal S1, Normal S2, No murmurs, Irregular Rate, No rub noted, No Gallop Abdomen: Soft, Non Tender, Hypoactive Bowel Sounds, Distended, - - No rebound or guarding appreciated. Extremities: No clubbing, No cyanosis, Edema, - - Amputations noted Skin: No rashes, No breakdown Musculoskeletal: No Tenderness to Palpation of Joints or Extremities Lymphatic: No Cervical, Supraclavicular, or Inguinal Adenopathy Neurological: Cranial nerves II-XII grossly intact, Neuro grossly intact, Motor Exam 5/5 strength throughout Psych/Mental Status: Anxious - When awoken, Restless Vital Signs Temp Pulse Resp BP Pulse Ox 36.9 C 57 L 14 113/70 95 08/06/19 05:00 08/06/19 06:00 08/06/19 06:00 08/06/19 06:00 08/06/19 06:00 Oxygen Flow Rate (L/min) 15 Oxygen Delivery Method Mechanical Ventilator Weight: 91.9 kg Body Mass Index (BMI) 31.2 Finger Stick Blood Glucose 278 Intake and Output for Last 24 Hours 08/04/19 08/05/19 08/06/19 23:59 23:59 23:59 Intake Total 1511.79 / 1519.29 1344.53 / 1344.53 Output Total 125 / 125 Balance 1511.79 / 1419.29 1219.53 / 1219.53 Labs (Last 48 Hours) 08/05/19 08/05/19 08/05/19 13:55 13:55 13:55 WBC 11.7 H RBC 4.78 Hgb 14.3 Hct 44.0 MCV 92.1 MCH 29.9 MCHC 32.5 RDW Std Deviation 43.2 RDW Coeff of Arturo 12.7 Plt Count 148 L MPV 10.4 Immature Gran % (Auto) 3.900 H Neut % (Auto) 44.2 L Lymph % (Auto) 43.3 H [place] % (Auto) 7.0 Eos % (Auto) 0.7 Baso % (Auto) 0.9 Absolute Neuts (auto) 5.2 Absolute Lymphs (auto) 5.06 H Nucleated RBC % 0 Differential Comment COMMENT PT 14.7 INR 1.2 APTT 27.9 Specimen Type Sample Site pH Bicarbonate Actual POC Total CO2 Base Excess O2 Saturation O2 % ABG pCO2 ABG pO2 Marcus Test Respiration Rate O2 Delivery Device Minute Volume Vent Mode Tidal Volume POC PEEP Blood Gas Notified Whom Blood Gas Notified Time Sodium 141 Potassium 3.1 L Chloride 108 H Carbon Dioxide 21.0 Anion Gap 12 BUN 14 Creatinine 1.45 H Estim Creat Clear Calc 40.52 Est GFR (MDRD) Af Amer 61 Est GFR (MDRD) Non-Af 50 L BUN/Creatinine Ratio 9.7 L Glucose 287 H Calcium 8.9 Magnesium 2.1 Troponin I < 0.015 POC Glucose 08/05/19 08/05/19 08/05/19 14:41 16:01 18:48 WBC RBC Hgb Hct MCV MCH MCHC RDW Std Deviation RDW Coeff of Arturo Plt Count MPV Immature Gran % (Auto) Neut % (Auto) Lymph % (Auto) [place] % (Auto) Eos % (Auto) Baso % (Auto) Absolute Neuts (auto) Absolute Lymphs (auto) Nucleated RBC % Differential Comment PT INR APTT Specimen Type ART ART Sample Site R Brachial R Brachial pH 7.25 L 7.31 L Bicarbonate Actual 19.8 L 21.3 L POC Total CO2 21 23 Base Excess -7 L -5 L O2 Saturation 100 H 97 O2 % 100 70 ABG pCO2 45.2 H 42.1 ABG pO2 286 H 104 H Marcus Test NA NA Respiration Rate 12 12 O2 Delivery Device Vent Vent Minute Volume 11.00 Vent Mode A-C A-C Tidal Volume 450 450 POC PEEP 5 5 Blood Gas Notified Whom ED MD ED MD Blood Gas Notified Time 1437 1600 Sodium Potassium Chloride Carbon Dioxide Anion Gap BUN Creatinine Estim Creat Clear Calc Est GFR (MDRD) Af Amer Est GFR (MDRD) Non-Af BUN/Creatinine Ratio Glucose Calcium Magnesium Troponin I POC Glucose 171 H 08/05/19 08/06/19 08/06/19 20:00 01:12 01:45 WBC RBC Hgb Hct MCV MCH MCHC RDW Std Deviation RDW Coeff of Arturo Plt Count MPV Immature Gran % (Auto) Neut % (Auto) Lymph % (Auto) [place] % (Auto) Eos % (Auto) Baso % (Auto) Absolute Neuts (auto) Absolute Lymphs (auto) Nucleated RBC % Differential Comment PT INR APTT 114.3 H* Specimen Type Sample Site pH Bicarbonate Actual POC Total CO2 Base Excess O2 Saturation O2 % ABG pCO2 ABG pO2 Marcus Test Respiration Rate O2 Delivery Device Minute Volume Vent Mode Tidal Volume POC PEEP Blood Gas Notified Whom Blood Gas Notified Time Sodium Potassium Chloride Carbon Dioxide Anion Gap BUN Creatinine Estim Creat Clear Calc Est GFR (MDRD) Af Amer Est GFR (MDRD) Non-Af BUN/Creatinine Ratio Glucose Calcium Magnesium Troponin I 0.361 H POC Glucose 143 H 08/06/19 08/06/19 08/06/19 03:30 03:30 03:30 WBC 11.7 H RBC 4.36 L Hgb 13.2 Hct 40.2 MCV 92.2 MCH 30.3 MCHC 32.8 RDW Std Deviation 43.7 RDW Coeff of Arturo 13.1 Plt Count 146 L MPV 10.6 Immature Gran % (Auto) 0.400 Neut % (Auto) 83.3 H Lymph % (Auto) 6.9 L [place] % (Auto) 9.1 Eos % (Auto) 0.0 Baso % (Auto) 0.3 Absolute Neuts (auto) 9.8 H Absolute Lymphs (auto) 0.81 L Nucleated RBC % 0 Differential Comment PT INR APTT Specimen Type Sample Site pH Bicarbonate Actual POC Total CO2 Base Excess O2 Saturation O2 % ABG pCO2 ABG pO2 Marcus Test Respiration Rate O2 Delivery Device Minute Volume Vent Mode Tidal Volume POC PEEP Blood Gas Notified Whom Blood Gas Notified Time Sodium 141 Potassium 4.9 Chloride 112 H Carbon Dioxide 22.0 Anion Gap 7 BUN 22 H Creatinine 2.21 H Estim Creat Clear Calc 26.59 Est GFR (MDRD) Af Amer 37 L Est GFR (MDRD) Non-Af 31 L BUN/Creatinine Ratio 10.0 Glucose 139 H Calcium 8.9 Magnesium Troponin I 0.351 H POC Glucose 08/06/19 08/06/19 06:15 06:15 WBC RBC Hgb Hct MCV MCH MCHC RDW Std Deviation RDW Coeff of Arturo Plt Count MPV Immature Gran % (Auto) Neut % (Auto) Lymph % (Auto) [place] % (Auto) Eos % (Auto) Baso % (Auto) Absolute Neuts (auto) Absolute Lymphs (auto) Nucleated RBC % Differential Comment PT INR APTT 60.9 H Specimen Type Sample Site pH Bicarbonate Actual POC Total CO2 Base Excess O2 Saturation O2 % ABG pCO2 ABG pO2 Marcus Test Respiration Rate O2 Delivery Device Minute Volume Vent Mode Tidal Volume POC PEEP Blood Gas Notified Whom Blood Gas Notified Time Sodium Potassium Chloride Carbon Dioxide Anion Gap BUN Creatinine Estim Creat Clear Calc Est GFR (MDRD) Af Amer Est GFR (MDRD) Non-Af BUN/Creatinine Ratio Glucose Calcium Magnesium Troponin I 0.277 H POC Glucose Clinical Impression(s) from Imaging Studies Chest X-Ray 08/05/19 14:08 IMPRESSION: Gastric congestion. The tip of the endotracheal tube is at the level of the [place]. This should be pulled back 3 cm. Electronically Signed: Jerardo Aguillon, at 14:45 EST , Service support , Brain CT 08/05/19 14:17 IMPRESSION: Chronic involutional changes of the brain. N.B. : The above information has been verbally conveyed by Jerardo Aguillon to Andres Garza on 08/05/2019 15:48:24 (ET). Electronically Signed: Jerardo Aguillon, at 15:51 EST , Service support , ADDENDUM: 08/05/19 1558 IMPRESSION: Chronic involutional changes of the brain. N.B. : The above information has been verbally conveyed by Jerardo Aguillon to Andres Garza on 08/05/2019 15:48:24 (ET). Electronically Signed: Jerardo Aguillon, at 15:51 EST , Service support , Chest X-Ray 08/05/19 17:40 IMPRESSION: Endotracheal tube tip in the mid thoracic trachea. Electronically Signed: Reynold Dalia, at 18:56 EST Tel , Service support , Chest X-Ray 08/06/19 01:27 IMPRESSION: Right-sided central venous catheter tip at the cavoatrial junction. Mild retrocardiac atelectasis versus infiltrate. at 0210 Reported and signed by: Darlene Carlos MD Electronically Signed: Darlene Carlos MD at 2:10 EST Tel , Service support , Medical Necessity - Tobacco Use Smoking Status: Never smoker Tobacco Use: Non-smoker Assessment/Plan All Active Problems Cardiac arrest with ventricular fibrillation (Acute) LV dysfunction (Acute) Diabetes (Acute) Atrial flutter (Acute) RECOMMENDATIONS: 1. Continue mechanical ventilation overnight, propofol and fentanyl for sedation and pain 2. Spontaneous awakening and breathing trial per protocol 3. Wean oxygen as tolerated 4. Amiodarone per cardiology 5. N.p.o. Sliding scale insulin 6. Obtain KUB IMPRESSIONS: 1. V. fib arrest/hypokalemia Patient is opening eyes spontaneously. Patient has had ROSC and appears to be doing okay at this time. Transient hypotension appears to be secondary to sedative medications and bradycardia. Patient is on amiodarone. Continue to monitor closely. We will continue with a heparin drip for now. Patient may require heart catheterization in the future. Hypokalemia has been resolved. Likely okay to discontinue troponin measurements. 2. New onset a flutter Patient reportedly does not have a history of A. fib. Patient has not been treated here previously. Patient does have a depressed EF with atrial enlargement. Patient is on amiodarone at this time. Patient is requiring dopamine secondary to bradycardia. This would likely signify cardiogenic shock. Patient does have an element of bradycardia. Unclear duration, so patient likely should not have cardioversion and less emergent. 3. Systolic congestive heart failure Unclear chronicity. Patient does not appear to follow with physicians regularly. Patient does have an EF of 30 to 35%. Unclear if this is secondary to acute event. Cardiology is currently following. Agree with holding on beta-blockers for now. Would defer to cardiology on possible catheterization timing. Patient's creatinine appears to be going up despite blood pressure support. 4. Acute respiratory failure Likely secondary to #1. Patient did not have acute compensation to metabolic acidosis. Continue with mechanical ventilation overnight. Spontaneous awakening breathing trials per protocol. Unclear if patient has an element of obstructive lung disease, but peak airway pressures appear to be appropriate at this time. Patient not tolerating spontaneous awakening trial, but bradycardia would preclude using Precedex therapy. 5. BPH/advanced age/poor medical history Complicates care, management, recovery and prognosis. [place] in place. Monitor urine output. Poor historian. Unclear if patient's creatinine of 1.45 is his baseline versus other lab values. Patient also has an elevated glucose indicating diabetes mellitus. This is not known by the family. 6. Acute kidney injury Unclear baseline, but patient has increased up to 2.21 on creatinine and urine output is decreased. Continue to support hemodynamics. Patient currently has a condom catheter. Some abdominal bloating is noted. KUB has been ordered. Attempt to avoid contrast if possible. TIME: 38 minutes critical care time spent addressing patient's cardiac arrest, respiratory failure, possible renal failure, a flutter, review of all data and collaboration with care team (6 AM to 7 AM). Code Visit 9xxxx: [id number] Critical care first hour
--- NOTE | 2019-08-06 08:21 | PN_ITS ---
Patient Problems: Active and Suspected Problems Cardiac arrest with ventricular fibrillation (Acute) LV dysfunction (Acute) Diabetes (Acute) Atrial flutter (Acute) Subjective: Intubated and sedated, does have purposeful movements to pain stimuli and opens eyes to voice Vitals/I&O's: Vital Signs Temp Pulse Resp BP Pulse Ox 98.2 F 53 L 14 110/61 95 08/06/19 07:00 08/06/19 07:00 08/06/19 07:00 08/06/19 07:00 08/06/19 07:00 Oxygen Flow Rate (L/min) 15 Oxygen Delivery Method Mechanical Ventilator Weight: 202 lb 9.677 oz Body Mass Index (BMI) 31.2 Finger Stick Blood Glucose 278 Intake and Output for Last 24 Hours 08/04/19 08/05/19 08/06/19 23:59 23:59 23:59 Intake Total 1511.79 / 1519.29 1489.22 / 1489.22 Output Total 125 / 125 Balance 1511.79 / 1419.29 1364.22 / 1364.22 General: - - Intubated and sedated HEENT: Atraumatic, PERRLA, Normocephalic Oral: Moist Mucosa Neck: Supple, No JVD Lungs: Clear to auscultation, Normal air movement, No rhonchi, No wheeze, No rales, Diminished Cardiovascular: Regular rate, Regular Rhythm, Normal S1, Normal S2, No murmurs Abdomen: Soft, Non-Distended, No Hepato-splenomegaly Extremities: Capillary Refill Less than 3 Seconds, Edema Skin: No rashes, No breakdown Neurological: - - Intubated and sedated Psych/Mental Status: - - Intubated and sedated Laboratory Results 08/05/19 13:55: WBC 11.7 H, RBC 4.78, Hgb 14.3, Hct 44.0, MCV 92.1, MCH 29.9, MCHC 32.5, RDW Std Deviation 43.2, RDW Coeff of Arturo 12.7, Plt Count 148 L, MPV 10.4, Immature Gran % (Auto) 3.900 H, Neut % (Auto) 44.2 L, Lymph % (Auto) 43.3 H, [place] % (Auto) 7.0, Eos % (Auto) 0.7, Baso % (Auto) 0.9, Absolute Neuts (auto) 5.2, Absolute Lymphs (auto) 5.06 H, Nucleated RBC % 0, Differential Comment COMMENT 08/05/19 13:55: Sodium 141, Potassium 3.1 L, Chloride 108 H, Carbon Dioxide 21.0, Anion Gap 12, BUN 14, Creatinine 1.45 H, Estim Creat Clear Calc 40.52, Est GFR (MDRD) Af Amer 61, Est GFR (MDRD) Non-Af 50 L, BUN/Creatinine Ratio 9.7 L, Glucose 287 H, Calcium 8.9, Magnesium 2.1, Troponin I < 0.015 08/05/19 13:55: PT 14.7, INR 1.2, APTT 27.9 08/05/19 14:41: Specimen Type ART, Sample Site R Brachial, pH 7.25 L, Bicarbonate Actual 19.8 L, POC Total CO2 21, Base Excess -7 L, O2 Saturation 100 H, O2 % 100, ABG pCO2 45.2 H, ABG pO2 286 H, Marcus Test NA, Respiration Rate 12, O2 Delivery Device Vent, Minute Volume 11.00, Vent Mode A-C, Tidal Volume 450, POC PEEP 5, Blood Gas Notified Whom ED , Blood Gas Notified Time 1437 08/05/19 16:01: Specimen Type ART, Sample Site R Brachial, pH 7.31 L, Bicarbonate Actual 21.3 L, POC Total CO2 23, Base Excess -5 L, O2 Saturation 97, O2 % 70, ABG pCO2 42.1, ABG pO2 104 H, Marcus Test NA, Respiration Rate 12, O2 Delivery Device Vent, Vent Mode A-C, Tidal Volume 450, POC PEEP 5, Blood Gas Notified Whom ED , Blood Gas Notified Time 1600 08/05/19 18:48: POC Glucose 171 H 08/05/19 20:00: Troponin I 0.361 H 08/06/19 01:12: POC Glucose 143 H 08/06/19 01:45: APTT 114.3 H* 08/06/19 03:30: WBC 11.7 H, RBC 4.36 L, Hgb 13.2, Hct 40.2, MCV 92.2, MCH 30.3, MCHC 32.8, RDW Std Deviation 43.7, RDW Coeff of Arturo 13.1, Plt Count 146 L, MPV 10.6, Immature Gran % (Auto) 0.400, Neut % (Auto) 83.3 H, Lymph % (Auto) 6.9 L, [place] % (Auto) 9.1, Eos % (Auto) 0.0, Baso % (Auto) 0.3, Absolute Neuts (auto) 9.8 H, Absolute Lymphs (auto) 0.81 L, Nucleated RBC % 0 08/06/19 03:30: Sodium 141, Potassium 4.9, Chloride 112 H, Carbon Dioxide 22.0, Anion Gap 7, BUN 22 H, Creatinine 2.21 H, Estim Creat Clear Calc 26.59, Est GFR (MDRD) Af Amer 37 L, Est GFR (MDRD) Non-Af 31 L, BUN/Creatinine Ratio 10.0, Gluc ose 139 H, Calcium 8.9 08/06/19 03:30: Troponin I 0.351 H 08/06/19 06:15: Troponin I 0.277 H 08/06/19 06:15: APTT 60.9 H Current Medications Chlorhexidine Gluconate () 15 ml PO BID OSMIN Last Admin: 08/05/19 22:52 Dose: 15 ml Documented by: Dextrose (D50w Syringe) 0 gm IV X1 PRN; Protocol PRN Reason: Hypoglycemia Glucagon () 1 mg IM .X1 PRN PRN Reason: Hypoglycemia Heparin Sodium (Porcine) (Heparin Na) 0 unit IV UD PRN; Protocol Propofol (Diprivan) 1,000 mg in 100 mls @ 5.514 mls/hr CONT INF .Q12H OSMIN; Protocol Last Titration: 08/06/19 07:00 Dose: 10 mcg/kg/min, 5.6 mls/hr Documented by: Fentanyl () 100 mls @ 5 mls/hr IV UD OSMIN; Protocol Last Titration: 08/06/19 07:00 Dose: 75 mcg/hr, 7.5 mls/hr Documented by: Amiodarone HCl 360 mg/ (Dextrose) 200 mls @ 16.667 mls/hr CONT INF .Q12H OSMIN Stop: 08/06/19 16:59 Last Infusion: 08/06/19 06:00 Dose: 0.5 mg/min, 16.7 mls/hr Documented by: Sodium Chloride () 250 mls @ 15 mls/hr IV .[id number] PRN PRN Reason: Saline Flush Sodium Chloride () 1,000 mls @ 125 mls/hr IV .Q8H [facility] Last Admin: 08/06/19 03:17 Dose: 125 mls/hr Documented by: Heparin Sodium/Dextrose () 25,000 units in 250 mls @ 12 mls/hr IV .[id number] OSMIN; Protocol Last Titration: 08/06/19 04:15 Dose: 900 units/hr, 9 mls/hr Documented by: Famotidine 20 mg/ Sodium (Chloride) 10 mls @ 300 mls/hr IV DAILY [facility] Last Infusion: 08/05/19 23:43 Dose: Infused Documented by: Dopamine HCl/Dextrose () 800 mg in 250 mls @ 3.446 mls/hr CONT INF .[id number] [facility]; Protocol Last Titration: 08/06/19 07:00 Dose: 3 mcg/kg/min, 5.1 mls/hr Documented by: Insulin Human Lispro (Humalog Kwikpen (Bkc)) 0 unit SC Q6 OSMIN; Protocol Last Admin: 08/06/19 06:43 Dose: Not Given Documented by: Sodium Chloride () 10 - 40 ml IV UD PRN PRN Reason: SALINE FLUSH STROKE Vital Signs/Narrative: Vital Signs Temp Pulse Resp BP BP Pulse Ox 08/06/19 07:00 98.2 F 53 L 14 110/61 95 08/06/19 06:52 53 L 14 94 08/06/19 06:00 57 L 14 113/70 113/70 95 08/06/19 05:00 98.5 F 54 L 14 111/60 94 08/06/19 04:45 102/67 08/06/19 04:30 96/63 Medical Necessity - Tobacco Use Smoking Status: Never smoker Tobacco Use: Non-smoker Assessment/Plan All Active Problems Cardiac arrest with ventricular fibrillation (Acute) LV dysfunction (Acute) Diabetes (Acute) Atrial flutter (Acute) 1. V. fib arrest/new onset a flutter/acute systolic CHF/acute respiratory failure/CALLIE -Creatinine increased from 1.45 to 2.21 today, his baseline is -Troponin peaked at 0.361 -Had a central line placed on dopamine started yesterday for bradycardia, continue with amiodarone drip as well -Intubated and currently sedated, did not pass spontaneous breathing trial -Appreciate ICU and cardiology assistance -Continue with heparin drip 2. Type 2 diabetes -He was not on any medications at home -Continue with Accu-Cheks and sliding scale insulin 3. BPH -Is on Flomax and doxazosin as an outpatient -Will hold DVT: Heparin drip Code Visit Inpatient E&M: 44432 Subs Hosp L2
--- NOTE | 2019-08-06 09:34 | CASEMGMT ---
RN CM Assessment Presentation: Cardiac Arrest with V-Fib Intro role of CM and purpose of RN CM assessment to patient's . Pt is on ventilator, unable to participate in assessment. Demographics, PCP and Pharmacy verified. is visibly concerned for her . Voices that he was doing fine, and even went back to work. Pt generally independent, does not use any ambulatory DME. would like to have pt return home on discharge if able. RN CM offered emotional support, answered questions and let know CM would be available to assist with dc planning needs. PCP: Dr. Manjit Colmenares. states pt is compliant with f/u with physician. Specialists: Dr. Landers, Dr. Lemus, cardiology Preferred Pharmacy: [facility] Insurance: [employer] Prescription Benefit: yes LNOK: , Fatimah Yu Living Arrangements: Lives in one story home, 5 steps into home, then BR/bath/living area on one floor. Per , Transportation: [facility] transportation DME: cane if needed HHC: none Patient DC goals: Home DC PLAN: undetermined. Pt remains on ventilator. CM will continue to follow and assist with dc planning. Laurent AZARN RN ACM
[2019-08-06] MEDS: Famotidine 200 MG/20 ML MDV 20 MG in 0.9% Normal Saline (Pres. free 8 ML 300 MG IV (10:42)
[2019-08-06] MEDS: Chlorhexidine 15 ML PO ×2 (10:42→21:28)
[2019-08-06] MEDS: Polyethylene Glycol 3350 17 GM PACKET PO (10:45)
[2019-08-06 11:21] LABS: Bedside Glucose 119 mg/dL (70-110)
[2019-08-06] MEDS: Propofol 10MG/Ml 1,000 MG/100 ML Bottle 5.5 MG CONT INF (12:26)
[2019-08-06 13:08] LABS: Partial Thromboplast Time 86.5 Seconds (24.1-36.2)
--- NOTE | 2019-08-06 15:16 | CHAPLAIN ---
Type of Pastoral Visit ___ Initial Visit _x__ Follow-up Visit ___ On-call Visit ___ General Patient Visit ___ Spiritual Assessment ___ Family Conference ___ Bereavement ___ Rapid Response ___ Code Blue ___ Other (describe below) Pastoral Care Referral From ___ Patient _x__ Family ___ Nurse ___ Physician ___ Cow Tester ___ Retail Training Manager ___ Other (describe below) Sacrament/Intervention ___ Active listening ___ Anointing ___ Anabaptism ___ Bereavement ___ Communion ___ Tatiana exploration ___ ___ Life review ___ Prayer ___ Reconciliation ___ Sacrament of Sick _x__ Supportive presence ___ Wedding ___ Other (describe below) Pastoral Comments talked with family members and offered ongoing support as they wait
--- NOTE | 2019-08-06 15:25 | PN.CARD_ITS ---
Subjectve: Patient intubated, sedated, does not respond to pain. Does respond to stroke in the underside of his foot withdrawal of his feet. Does not obey commands. Previous attempts at ventilator weaning unsuccessful due to severe agitation. According to Dr. Landers, the patient did understand commands earlier when his sedation was less, and engaged in purposeful movements. Overnight the patient's blood pressure dropped requiring low-dose dopamine therapy. He is currently in atrial fibrillation/atrial flutter with a junctional escape rhythm on amiodarone drip. EKG is unchanged. Repeat echo this morning showed moderate to severe global LV dysfunction with an EF around 35%. Creatinine is increased from 1.45- >2.21. Decreased urine output. Objective: Vital Signs Temp Pulse Resp BP Pulse Ox 98 F 51 L 14 126/71 H 95 08/06/19 08:00 08/06/19 13:13 08/06/19 13:13 08/06/19 10:48 08/06/19 13:13 Oxygen Flow Rate (L/min) 15 Oxygen Delivery Method Mechanical Ventilator Weight: 202 lb 9.677 oz Body Mass Index (BMI) 31.2 Finger Stick Blood Glucose 278 Intake and Output for Last 24 Hours 08/04/19 08/05/19 08/06/19 23:59 23:59 23:59 Intake Total 1511.79 / 1519.29 2728.79 / 2728.79 Output Total 125 / 125 Balance 1511.79 / 1419.29 2603.79 / 2603.79 General: Awake, Alert, Oriented x 3 HEENT: PERRL, EOMI, Sclera Non Icteric Neck: Supple, Good ROM, No Lymph Node Enlargement Lungs: Clear to auscultation Cardiovascular: Regular Rhythm, Normal S1, Normal S2, No Murmurs, No Rubs, No Gallops Vascular: No Carotid Bruits, Normal Femoral Pulses, Normal Radial Pulses, Normal Dorsalis Pedal Pulse, Normal Posterior Tibial Pulses Abdomen: Bowel Sounds Present, Soft, Non Tender, No HSM, No Organomegaly Extremities: No Cyanosis, No Clubbing, No edema Neurological: No Focal Motor or Sensory Deficit 08/05/19 13:55: PT 14.7, INR 1.2, APTT 27.9 08/05/19 16:01: pH 7.31 L, Bicarbonate Actual 21.3 L, POC Total CO2 23, Base Excess -5 L, O2 Saturation 97, ABG pCO2 42.1, ABG pO2 104 H, Marcus Test NA 08/05/19 20:00: Troponin I 0.361 H 08/06/19 01:45: APTT 114.3 H* 08/06/19 03:30: WBC 11.7 H, RBC 4.36 L, Hgb 13.2, Hct 40.2, MCV 92.2, MCH 30.3, MCHC 32.8, Plt Count 146 L, MPV 10.6, Immature Gran % (Auto) 0.400, Neut % (Auto) 83.3 H, Lymph % (Auto) 6.9 L, Starr % (Auto) 9.1, Eos % (Auto) 0.0, Baso % (Auto) 0.3, Absolute Neuts (auto) 9.8 H, Nucleated RBC % 0 08/06/19 03:30: Sodium 141, Potassium 4.9, Chloride 112 H, Carbon Dioxide 22.0, Anion Gap 7, BUN 22 H, Creatinine 2.21 H, Est GFR (MDRD) Af Amer 37 L, Est GFR (MDRD) Non-Af 31 L, BUN/Creatinine Ratio 10.0, Glucose 139 H, Calcium 8.9 08/06/19 03:30: Troponin I 0.351 H 08/06/19 06:15: Troponin I 0.277 H 08/06/19 06:15: APTT 60.9 H 08/06/19 12:50: APTT 86.5 H Rhythm: EKG: As above ECHO: As above Stress Test: Cardiac Cath: Pending PCI: CT Surgery: Holter monitor: EPS: PPM: CXR: Chest CT Scan: Medical Necessity - Tobacco Use Smoking Status: Never smoker Tobacco Use: Non-smoker Assessment/Plan 1. V. fib arrest: The patient had V. fib arrest which apparently was witnessed with initiation of CPR relatively quickly followed by 911 EMS deployment followed by defibrillation x2 in the field. His EKG does not have overt ST segment elevation although he does have an intraventricular conduction delay in the left bundle branch block, there is no overt J-point elevation. His stat echocardiogram demonstrates severe global LV dysfunction with EF around 30 to 35% with no localized wall motion abnormalities. It is unclear whether this is an old finding as he has not had an echocardiogram or seen a jammer operator in many many years. According to the family and they have no known knowledge of atrial fibrillation, atrial flutter, or poor LV function. It is possible his LV dysfunction is acute as a result of his V. fib arrest. In addition patient has very poor mental status at this time and is unclear whether he may have suffered anoxic brain injury. His preliminary CT scan findings showed no overt bleeding. Overnight, the patient responded to amiodarone drip but developed junctional bradycardia superimposed on atrial fibrillation/atrial flutter. He required low-dose dopamine for heart rate and blood pressure support. I recommend we discontinue the patient's amiodarone and is most likely contributing to his bradycardia and decreased cardiac output. Would recommend titrating his dopamine to keep his MEP greater than 60. He will continue IV heparin drip for both his non-ST elevation myocardial infarction as well as his atrial fibrillation. At this point the patient is at high risk for acute renal failure given his acute on chronic renal failure with acute tubular necrosis, ATN. I believe at this time it would be unwise and unnecessary to proceed with left heart catheterization which may expose the patient to temporary or permanent renal failure. At some point he will require a diagnostic coronary angiogram however I would wait until the patient's renal function has resumed its baseline. Hopefully, in addition, we can proceed with catheterization while the patient is still intubated. This may not be at least until this Sunday, and perhaps on Sunday depending upon his mental state. I would not recommend LV angiogram but rather just coronary angiography. 2. Atrial flutter: Patient's family states that they are unaware whether he has any kind of atrial arrhythmias and he is currently on no anticoagulation. Recommend continuing anticoagulation with IV heparin drip. Patient most likely benefit from normalization of his rhythm which can be done as an outpatient should he clinically improved. I would not recommend Coumadin therapy until we have completed his catheterization. 3. Hypotension: We will hold off on beta-blockers or FERNANDO inhibitors at this time until he is medically stabilized. Patient may require renal consultation if his creatinine continues to worsen. 4. I had a long thorough discussion with the patient's family, and explained and answered all their questions, and I recommended we hold off on catheterization until we get better determination of his mental status, but more importantly the direction in which his renal function goes. I explained to family that the patient is at very high risk for acute on chronic renal failure should be exposed to any contrast dye or other renal insults. 5. Thank you very much for the opportunity to participate in the cardiac care of your patient. Discussed with Dr. Landers. Code Visit Inpatient E&M: [id number] Subs Hosp L3
[2019-08-06 16:46] LABS: Bedside Glucose 106 mg/dL (70-110)
--- NOTE | 2019-08-06 16:54 | CHAPLAIN ---
follow up visit with family to check on their needs; sons request prayer; spouse and some family will be able to stay in hospital housing [place] and this is appreciated
[2019-08-06 19:37] LABS: Partial Thromboplast Time 69.3 Seconds (24.1-36.2)
[2019-08-07] VITALS (34 sets, daily range): BP systolic 108–199; BP diastolic 61–105; PULSE 46–85; RESP 14–22; TEMP 36.8–37.1; O2SAT 89–99
[2019-08-07] MEDS: HEPARIN/D5w 25,000 UNITS 25,000 UNITS/250 ML IV.SOLN. 8 UNITS IV (00:32)
[2019-08-07] MEDS: Propofol 10MG/Ml 1,000 MG/100 ML Bottle 5.5 MG CONT INF (00:42)
[2019-08-07 00:50] LABS: Bedside Glucose 104 mg/dL (70-110)
[2019-08-07 02:25] LABS: International Normalized Ratio 1.2; Prothrombin Time (Protime)PT. 15.4 SECONDS (11.7-14.9)
[2019-08-07] MEDS: 0.9% Normal Saline 1,000 ML 125 ML IV ×3 (03:46→19:28)
[2019-08-07 05:27] LABS: Absolute Lymphocyte Count 1.12 X10^3/uL (0.83-4.51); Absolute Neutrophil Count 9.7 X10^3/uL (2.0-7.7); Basophil# 0.05 X10^3/uL; Basophil% 0.4 % (0-1); Eosinophil# 0.01 X10^3/uL; Eosinophils% 0.1 % (0-5); Hematocrit 41.4 % (40-54); Hemoglobin 13.3 g/dL (13.0-16.5); Lymphocyte # 1.12 X10^3/ul (4.0); Lymphocyte % 9.2 % (19-41); Mean Corp Hgb Conc 32.1 g/dL (32-36); Mean Corpuscular Hgb 29.9 pg (27.0-32.0); Mean Platelet Vol. 10.3 fl (6.2-12.0); Monocyte# 1.18 X10^3/uL; Monocyte% 9.7 % (0-10); NRBC Flagged by Analyzer 0 % (0-5); Neutrophil # 9.73 X10^3/uL (2.7-7.7); Neutrophil % 79.8 % (47-70); Platelet Count 124 K/mm3 (150-450); RBC Distribution Width SD 44.1 fl (35.1-43.9); Red Blood Count 4.45 M/mm3 (4.6-6.2); White Blood Count 12.2 K/mm3 (4.4-11.0)
[2019-08-07 05:32] LABS: Anion Gap 4 (5-15); BUN 28 mg/dL (7-18); BUN/Creat Ratio 11.6 RATIO (10-20); Calcium,Total 9.1 mg/dL (8.5-10.1); Chloride 114 mmol/L (98-107); Creatinine, Serum 2.42 mg/dL (0.70-1.30); EST Glomerular Filtration Rate 28 mL/min (>60); Est Glom Filt Rate - Afr Amer 34 mL/min (>60); Estimated Creatinine Clearance 24.28 ml/min; Glucose 121 mg/dL (74-106); Potassium 4.7 mmol/L (3.5-5.1); Sodium Level 141 mmol/L (136-145)
[2019-08-07 06:35] LABS: Allen Test POS; Base Excess -8 mmol/L (-2 to +2); Bicarbonate 18.3 mmol/L (22-26); Blood Gas Specimen Type ART; FI02 30; Mode CPAP PS; O2 Delivery Device Vent; PEEP 5; PO2 98 mmHG (75-100); PS 5; SITE L Radial; SO2 97 % (95-99); Time Given 627; Total Carbon Dioxide 19 mmol/L; pCO2 35.6 mmHg (35-45); pH 7.32 (7.35-7.45)
--- NOTE | 2019-08-07 07:17 | PCM.PN.INT ---
Subjective: Patient did well overnight. Patient was able to come off the dopamine after discontinuation of amiodarone drip. Patient was able to pass a spontaneous breathing trial this morning. Discussed with Dr. Lemus and then patient was extubated. Patient denies any chest pain, abdominal pain, nausea or vomiting. Patient has persisted in A. fib/flutter with slower ventricular response. General: Alert, Cooperative, No apparent distress, - - Good vocalization. HEENT: Atraumatic, PERRLA, EOMI, Normocephalic, - - No scleral icterus or injection noted Oral: Moist Mucosa, No Gingival or Mucosal Lesions/ Ulcerations Neck: Supple, No JVD, No Nodes, Trachea Midline Lungs: No wheeze, No rales, Diminished, Rhonchi - Right base, but improves with coughing Cardiovascular: Normal S1, Normal S2, No murmurs, Bradycardic, Irregular Rate, No rub noted, No Gallop Abdomen: Bowel Sounds Present, Soft, Non Tender, Non-Distended, Obese Extremities: No clubbing, No cyanosis, Edema - 1+ lower extremity Skin: No rashes, No breakdown Musculoskeletal: No Tenderness to Palpation of Joints or Extremities Lymphatic: No Cervical, Supraclavicular, or Inguinal Adenopathy Neurological: Cranial nerves II-XII grossly intact, Neuro grossly intact, Motor Exam 5/5 strength throughout Psych/Mental Status: Normal Affect, Appropriate Vital Signs Temp Pulse Resp BP Pulse Ox 37.1 C 75 17 167/105 H 98 08/07/19 00:00 08/07/19 06:00 08/07/19 06:00 08/07/19 06:00 08/07/19 06:00 Oxygen Flow Rate (L/min) 15 Oxygen Delivery Method Mechanical Ventilator Weight: 91.5 kg Body Mass Index (BMI) 31.2 Finger Stick Blood Glucose 278 Intake and Output for Last 24 Hours 08/05/19 08/06/19 08/07/19 23:59 23:59 23:59 Intake Total 1511.79 / 1519.29 4107.09 / 4112.59 1357.85 / 1357.85 Output Total 425 / 775 400 / 400 Balance 1511.79 / 1419.29 3682.09 / 3337.59 957.85 / 957.85 Labs (Last 48 Hours) 11/09/1108/05/19 08/05/19 13:55 13:55 13:55 WBC 11.7 H RBC 4.78 Hgb 14.3 Hct 44.0 MCV 92.1 MCH 29.9 MCHC 32.5 RDW Std Deviation 43.2 RDW Coeff of Arturo 12.7 Plt Count 148 L MPV 10.4 Immature Gran % (Auto) 3.900 H Neut % (Auto) 44.2 L Lymph % (Auto) 43.3 H Willacy % (Auto) 7.0 Eos % (Auto) 0.7 Baso % (Auto) 0.9 Absolute Neuts (auto) 5.2 Absolute Lymphs (auto) 5.06 H Nucleated RBC % 0 Differential Comment COMMENT PT 14.7 INR 1.2 APTT 27.9 Specimen Type Sample Site pH Bicarbonate Actual POC Total CO2 Base Excess O2 Saturation O2 % ABG pCO2 ABG pO2 Marcus Test Respiration Rate O2 Delivery Device Minute Volume Vent Mode Tidal Volume POC PEEP POC Pressure Suppt Blood Gas Notified Whom Blood Gas Notified Time Sodium 141 Potassium 3.1 L Chloride 108 H Carbon Dioxide 21.0 Anion Gap 12 BUN 14 Creatinine 1.45 H Estim Creat Clear Calc 40.52 Est GFR (MDRD) Af Amer 61 Est GFR (MDRD) Non-Af 50 L BUN/Creatinine Ratio 9.7 L Glucose 287 H Calcium 8.9 Magnesium 2.1 Troponin I < 0.015 POC Glucose 08/05/19 08/05/19 08/05/19 14:41 16:01 18:48 WBC RBC Hgb Hct MCV MCH MCHC RDW Std Deviation RDW Coeff of Arturo Plt Count MPV Immature Gran % (Auto) Neut % (Auto) Lymph % (Auto) Willacy % (Auto) Eos % (Auto) Baso % (Auto) Absolute Neuts (auto) Absolute Lymphs (auto) Nucleated RBC % Differential Comment PT INR APTT Specimen Type ART ART Sample Site R Brachial R Brachial pH 7.25 L 7.31 L Bicarbonate Actual 19.8 L 21.3 L POC Total CO2 21 23 Base Excess -7 L -5 L O2 Saturation 100 H 97 O2 % 100 70 ABG pCO2 45.2 H 42.1 ABG pO2 286 H 104 H Marcus Test NA NA Respiration Rate 12 12 O2 Delivery Device Vent Vent Minute Volume 11.00 Vent Mode A-C A-C Tidal Volume 450 450 POC PEEP 5 5 POC Pressure Suppt Blood Gas Notified Whom ED MD ED MD Blood Gas Notified Time 1437 1600 Sodium Potassium Chloride Carbon Dioxide Anion Gap BUN Creatinine Estim Creat Clear Calc Est GFR (MDRD) Af Amer Est GFR (MDRD) Non-Af BUN/Creatinine Ratio Glucose Calcium Magnesium Troponin I POC Glucose 171 H 08/05/19 08/06/19 08/06/19 20:00 01:12 01:45 WBC RBC Hgb Hct MCV MCH MCHC RDW Std Deviation RDW Coeff of Arturo Plt Count MPV Immature Gran % (Auto) Neut % (Auto) Lymph % (Auto) Willacy % (Auto) Eos % (Auto) Baso % (Auto) Absolute Neuts (auto) Absolute Lymphs (auto) Nucleated RBC % Differential Comment PT INR APTT 114.3 H* Specimen Type Sample Site pH Bicarbonate Actual POC Total CO2 Base Excess O2 Saturation O2 % ABG pCO2 ABG pO2 Marcus Test Respiration Rate O2 Delivery Device Minute Volume Vent Mode Tidal Volume POC PEEP POC Pressure Suppt Blood Gas Notified Whom Blood Gas Notified Time Sodium Potassium Chloride Carbon Dioxide Anion Gap BUN Creatinine Estim Creat Clear Calc Est GFR (MDRD) Af Amer Est GFR (MDRD) Non-Af BUN/Creatinine Ratio Glucose Calcium Magnesium Troponin I 0.361 H POC Glucose 143 H 08/06/19 08/06/19 08/06/19 03:30 03:30 03:30 WBC 11.7 H RBC 4.36 L Hgb 13.2 Hct 40.2 MCV 92.2 MCH 30.3 MCHC 32.8 RDW Std Deviation 43.7 RDW Coeff of Arturo 13.1 Plt Count 146 L MPV 10.6 Immature Gran % (Auto) 0.400 Neut % (Auto) 83.3 H Lymph % (Auto) 6.9 L Willacy % (Auto) 9.1 Eos % (Auto) 0.0 Baso % (Auto) 0.3 Absolute Neuts (auto) 9.8 H Absolute Lymphs (auto) 0.81 L Nucleated RBC % 0 Differential Comment PT INR APTT Specimen Type Sample Site pH Bicarbonate Actual POC Total CO2 Base Excess O2 Saturation O2 % ABG pCO2 ABG pO2 Marcus Test Respiration Rate O2 Delivery Device Minute Volume Vent Mode Tidal Volume POC PEEP POC Pressure Suppt Blood Gas Notified Whom Blood Gas Notified Time Sodium 141 Potassium 4.9 Chloride 112 H Carbon Dioxide 22.0 Anion Gap 7 BUN 22 H Creatinine 2.21 H Estim Creat Clear Calc 26.59 Est GFR (MDRD) Af Amer 37 L Est GFR (MDRD) Non-Af 31 L BUN/Creatinine Ratio 10.0 Glucose 139 H Calcium 8.9 Magnesium Troponin I 0.351 H POC Glucose 08/06/19 08/06/19 08/06/19 06:15 06:15 11:17 WBC RBC Hgb Hct MCV MCH MCHC RDW Std Deviation RDW Coeff of Arturo Plt Count MPV Immature Gran % (Auto) Neut % (Auto) Lymph % (Auto) Willacy % (Auto) Eos % (Auto) Baso % (Auto) Absolute Neuts (auto) Absolute Lymphs (auto) Nucleated RBC % Differential Comment PT INR APTT 60.9 H Specimen Type Sample Site pH Bicarbonate Actual POC Total CO2 Base Excess O2 Saturation O2 % ABG pCO2 ABG pO2 Marcus Test Respiration Rate O2 Delivery Device Minute Volume Vent Mode Tidal Volume POC PEEP POC Pressure Suppt Blood Gas Notified Whom Blood Gas Notified Time Sodium Potassium Chloride Carbon Dioxide Anion Gap BUN Creatinine Estim Creat Clear Calc Est GFR (MDRD) Af Amer Est GFR (MDRD) Non-Af BUN/Creatinine Ratio Glucose Calcium Magnesium Troponin I 0.277 H POC Glucose 119 H 08/06/19 08/06/19 08/06/19 12:50 16:42 19:16 WBC RBC Hgb Hct MCV MCH MCHC RDW Std Deviation RDW Coeff of Arturo Plt Count MPV Immature Gran % (Auto) Neut % (Auto) Lymph % (Auto) Willacy % (Auto) Eos % (Auto) Baso % (Auto) Absolute Neuts (auto) Absolute Lymphs (auto) Nucleated RBC % Differential Comment PT INR APTT 86.5 H 69.3 H Specimen Type Sample Site pH Bicarbonate Actual POC Total CO2 Base Excess O2 Saturation O2 % ABG pCO2 ABG pO2 Marcus Test Respiration Rate O2 Delivery Device Minute Volume Vent Mode Tidal Volume POC PEEP POC Pressure Suppt Blood Gas Notified Whom Blood Gas Notified Time Sodium Potassium Chloride Carbon Dioxide Anion Gap BUN Creatinine Estim Creat Clear Calc Est GFR (MDRD) Af Amer Est GFR (MDRD) Non-Af BUN/Creatinine Ratio Glucose Calcium Magnesium Troponin I POC Glucose 106 08/07/19 08/07/19 08/07/19 00:45 02:00 05:00 WBC 12.2 H RBC 4.45 L Hgb 13.3 Hct 41.4 MCV 93.0 MCH 29.9 MCHC 32.1 RDW Std Deviation 44.1 H RDW Coeff of Arturo 13.0 Plt Count 124 L MPV 10.3 Immature Gran % (Auto) 0.800 Neut % (Auto) 79.8 H Lymph % (Auto) 9.2 L Willacy % (Auto) 9.7 Eos % (Auto) 0.1 Baso % (Auto) 0.4 Absolute Neuts (auto) 9.7 H Absolute Lymphs (auto) 1.12 Nucleated RBC % 0 Differential Comment PT 15.4 H INR 1.2 APTT 62.0 H Specimen Type Sample Site pH Bicarbonate Actual POC Total CO2 Base Excess O2 Saturation O2 % ABG pCO2 ABG pO2 Marcus Test Respiration Rate O2 Delivery Device Minute Volume Vent Mode Tidal Volume POC PEEP POC Pressure Suppt Blood Gas Notified Whom Blood Gas Notified Time Sodium Potassium Chloride Carbon Dioxide Anion Gap BUN Creatinine Estim Creat Clear Calc Est GFR (MDRD) Af Amer Est GFR (MDRD) Non-Af BUN/Creatinine Ratio Glucose Calcium Magnesium Troponin I POC Glucose 104 08/07/19 08/07/19 05:00 06:31 WBC RBC Hgb Hct MCV MCH MCHC RDW Std Deviation RDW Coeff of Arturo Plt Count MPV Immature Gran % (Auto) Neut % (Auto) Lymph % (Auto) Willacy % (Auto) Eos % (Auto) Baso % (Auto) Absolute Neuts (auto) Absolute Lymphs (auto) Nucleated RBC % Differential Comment PT INR APTT Specimen Type ART Sample Site L Radial pH 7.32 L Bicarbonate Actual 18.3 L POC Total CO2 19 Base Excess -8 L O2 Saturation 97 O2 % 30 ABG pCO2 35.6 ABG pO2 98 Marcus Test POS Respiration Rate O2 Delivery Device Vent Minute Volume Vent Mode CPAP PS Tidal Volume POC PEEP 5 POC Pressure Suppt 5 Blood Gas Notified Whom ICU MD Blood Gas Notified Time 627 Sodium 141 Potassium 4.7 Chloride 114 H Carbon Dioxide 23.0 Anion Gap 4 L BUN 28 H Creatinine 2.42 H Estim Creat Clear Calc 24.28 Est GFR (MDRD) Af Amer 34 L Est GFR (MDRD) Non-Af 28 L BUN/Creatinine Ratio 11.6 Glucose 121 H Calcium 9.1 Magnesium Troponin I POC Glucose Clinical Impression(s) from Imaging Studies [facility] X-Ray 08/06/19 06:54 IMPRESSION: Nonspecific bowel gas pattern. Electronically Signed: Jerardo Aguillon, at 10:37 EST , Service support , Medical Necessity - Tobacco Use Smoking Status: Never smoker Tobacco Use: Non-smoker Assessment/Plan All Active Problems Cardiac arrest with ventricular fibrillation (Acute) LV dysfunction (Acute) Diabetes (Acute) Atrial flutter (Acute) RECOMMENDATIONS: 1. Wean oxygen as tolerated. Discontinue propofol and fentanyl 2. Spontaneous awakening and breathing trial per protocol 3. Bedside swallow evaluation 4. Heart catheterization timing per cardiology 5. Increase activity as tolerated IMPRESSIONS: 1. V. fib arrest/hypokalemia Patient is opening eyes spontaneously. Patient has had ROSC and appears to be doing okay at this time. Transient hypotension appears to be secondary to sedative medications and bradycardia. Cardiology is currently following. No recurrence of V. fib noted. Continue to monitor closely. We will continue with a heparin drip for now. Heart catheterization is tentatively scheduled for Sunday. Hypokalemia has been resolved. 2. New onset a flutter Patient reportedly does not have a history of A. fib. Patient has not been treated here previously. Patient does have a depressed EF with atrial enlargement. Consider p.o. amiodarone, but defer to cardiology. This would likely signify cardiogenic shock. Patient does have an element of bradycardia. Unclear duration, so patient likely should not have cardioversion unless emergent. 3. Systolic congestive heart failure Unclear chronicity. Patient does not appear to follow with physicians regularly. Patient does have an EF of 30 to 35%. Unclear if this is secondary to acute event. If chronic, this would predispose patient to the V. fib arrest. Cardiology is currently following. Agree with holding on beta-blockers for now. Would defer to cardiology on possible catheterization timing. Patient's creatinine appears to be going up despite blood pressure support. 4. Acute respiratory failure Likely secondary to #1. Patient did not have acute compensation to metabolic acidosis. Patient appears to be doing well after extubation. We will continue to monitor. Wean oxygen as tolerated. Bedside swallow evaluation before any p.o. intake. 5. BPH/advanced age/poor medical history Complicates care, management, recovery and prognosis. [place] in place. Monitor urine output. Poor historian. Unclear if patient's creatinine of 1.45 is his baseline versus other lab values. Patient also has an elevated glucose indicating diabetes mellitus. This is not known by the family. 6. Acute kidney injury Unclear baseline, but patient has increased up to 2.42 on creatinine and urine output is decreased. Continue to support hemodynamics. Patient currently has a condom catheter. Attempt to avoid contrast if possible. TIME: 38 minutes critical care time spent addressing patient's cardiac arrest, respiratory failure, possible renal failure, a flutter, review of all data and collaboration with care team (6 AM to 6:45 AM). Code Visit [id number]: [id number] Critical care first hour
--- NOTE | 2019-08-07 09:10 | PN_ITS ---
Patient Problems: Active and Suspected Problems Cardiac arrest with ventricular fibrillation (Acute) LV dysfunction (Acute) Diabetes (Acute) Atrial flutter (Acute) Subjective: Extubated and doing well. He tries to have conversation however his voice is very hoarse after the extubation Vitals/I&O's: Vital Signs Temp Pulse Resp BP Pulse Ox 98.2 F 68 18 140/80 H 99 08/07/19 08:00 08/07/19 08:00 08/07/19 08:00 08/07/19 08:00 08/07/19 08:00 Oxygen Flow Rate (L/min) 3 Oxygen Delivery Method Nasal Cannula Weight: 201 lb 11.567 oz Body Mass Index (BMI) 31.2 Finger Stick Blood Glucose 278 Intake and Output for Last 24 Hours 08/05/19 08/06/19 08/07/19 23:59 23:59 23:59 Intake Total 1511.79 / 1519.29 4108.79 / 4114.29 1767.85 / 1767.85 Output Total 425 / 775 400 / 400 Balance 1511.79 / 1419.29 3683.79 / 3339.29 1367.85 / 1367.85 General: Alert, Cooperative, No apparent distress, - - hoarse HEENT: Atraumatic, PERRLA, EOMI, Normocephalic Oral: Moist Mucosa Neck: Supple, No JVD Lungs: Clear to auscultation, Normal air movement, No rhonchi, No wheeze, No rales, Diminished Cardiovascular: Regular rate, Regular Rhythm, Normal S1, Normal S2, No murmurs Abdomen: Soft, Non Tender, Non-Distended, No Hepato-splenomegaly, Obese Extremities: Capillary Refill Less than 3 Seconds, Edema Skin: No rashes, No breakdown Neurological: Neuro grossly intact, Sensory exam intact to light touch and pain Psych/Mental Status: Normal Affect, Appropriate Laboratory Results 08/06/19 11:17: POC Glucose 119 H 08/06/19 12:50: APTT 86.5 H 08/06/19 16:42: POC Glucose 106 08/06/19 19:16: APTT 69.3 H 08/07/19 00:45: POC Glucose 104 08/07/19 02:00: PT 15.4 H, INR 1.2, APTT 62.0 H 08/07/19 05:00: WBC 12.2 H, RBC 4.45 L, Hgb 13.3, Hct 41.4, MCV 93.0, MCH 29.9, MCHC 32.1, RDW Std Deviation 44.1 H, RDW Coeff of Arturo 13.0, Plt Count 124 L, MPV 10.3, Immature Gran % (Auto) 0.800, Neut % (Auto) 79.8 H, Lymph % (Auto) 9.2 L, Otero % (Auto) 9.7, Eos % (Auto) 0.1, Baso % (Auto) 0.4, Absolute Neuts (auto) 9.7 H, Absolute Lymphs (auto) 1.12, Nucleated RBC % 0 08/07/19 05:00: Sodium 141, Potassium 4.7, Chloride 114 H, Carbon Dioxide 23.0, Anion Gap 4 L, BUN 28 H, Creatinine 2.42 H, Estim Creat Clear Calc 24.28, Est GFR (MDRD) Af Amer 34 L, Est GFR (MDRD) Non-Af 28 L, BUN/Creatinine Ratio 11.6, Glucose 121 H, Calcium 9.1 08/07/19 06:31: Specimen Type ART, Sample Site L Radial, pH 7.32 L, Bicarbonate Actual 18.3 L, POC Total CO2 19, Base Excess -8 L, O2 Saturation 97, O2 % 30, ABG pCO2 35.6, ABG pO2 98, Marcus Test POS, O2 Delivery Device Vent, Vent Mode CPAP PS, POC PEEP 5, POC Pressure Suppt 5, Blood Gas Notified Whom ICU MD, Blood Gas Notified Time 627 08/07/19 08:15: APTT 56.0 H Current Medications Dextrose (D50w Syringe) 0 gm IV X1 PRN; Protocol PRN Reason: Hypoglycemia Glucagon () 1 mg IM .X1 PRN PRN Reason: Hypoglycemia Heparin Sodium (Porcine) (Heparin Na) 0 unit IV UD PRN; Protocol Sodium Chloride () 250 mls @ 15 mls/hr IV .[id number] PRN PRN Reason: Saline Flush Sodium Chloride () 1,000 mls @ 125 mls/hr IV .Q8H OSMIN Last Infusion: 08/07/19 07:55 Dose: 125 mls/hr Documented by: Heparin Sodium/Dextrose () 25,000 units in 250 mls @ 12 mls/hr IV .[id number] [facility]; Protocol Last Titration: 08/07/19 08:42 Dose: 800 units/hr, 8 mls/hr Documented by: Famotidine 20 mg/ Sodium (Chloride) 10 mls @ 300 mls/hr IV DAILY [facility] Last Infusion: 08/06/19 11:02 Dose: Infused Documented by: Insulin Human Lispro (Humalog Kwikpen (Bkc)) 0 unit SC Q6 [facility]; Protocol Last Admin: 08/07/19 07:50 Dose: Not Given Documented by: Sodium Chloride () 10 - 40 ml IV UD PRN PRN Reason: SALINE FLUSH STROKE Vital Signs/Narrative: Vital Signs Temp Pulse Resp BP Pulse Ox 08/07/19 08:00 98.2 F 68 18 140/80 H 99 08/07/19 07:00 76 19 H 163/83 H 99 08/07/19 06:40 71 18 98 08/07/19 06:00 75 17 167/105 H 98 Medical Necessity - Tobacco Use Smoking Status: Never smoker Tobacco Use: Non-smoker Assessment/Plan All Active Problems Cardiac arrest with ventricular fibrillation (Acute) LV dysfunction (Acute) Diabetes (Acute) Atrial flutter (Acute) 1. V. fib arrest/new onset a flutter/acute systolic CHF/acute respiratory failu re/CALLIE -Creatinine increased from 1.45 to 2.42 today, his baseline is unknown -Troponin peaked at 0.361 -Had a central line placed was able to discontinue the dopamine once the amiodarone drip was discontinued -extubated 08/07/2019 -Appreciate ICU and cardiology assistance -Continue with heparin drip 2. Type 2 diabetes -He was not on any medications at home -Continue with Accu-Cheks and sliding scale insulin 3. BPH -Is on Flomax and doxazosin as an outpatient -Will hold DVT: Heparin drip Code Visit Inpatient E&M: [address] [facility] Hosp L2
[2019-08-07] MEDS: Famotidine 200 MG/20 ML MDV 20 MG in 0.9% Normal Saline (Pres. free 8 ML 300 MG IV (09:53)
[2019-08-07] MEDS: 0.9% Saline Lock 10 ML Syringe IV ×3 (09:54→15:18)
[2019-08-07] MEDS: Polyethylene Glycol 3350 17 GM PACKET PO ×2 (09:59→14:06)
--- NOTE | 2019-08-07 10:28 | PN.CARD_ITS ---
Subjectve: Patient seen and examined this morning. I was called by Dr. Trever Landers at 630 this morning requesting permission to extubate the patient with respect to his need for coronary catheterization. Patient's mental status apparently had markedly improved and he was fairly lucid. Patient was successfully extubated without difficulty, and is doing fairly well. He remains in atrial fibrillation/atrial flutter and is off dopamine drip.Telemetry shows atrial fibrillation/atrial flutter, rare PVCs, no ventricular tachycardia noted. Objective: Vital Signs Temp Pulse Resp BP Pulse Ox 98.2 F 73 17 160/94 H 99 08/07/19 08:00 08/07/19 10:00 08/07/19 10:00 08/07/19 10:00 08/07/19 10:00 Oxygen Flow Rate (L/min) 2 Oxygen Delivery Method Nasal Cannula Weight: 201 lb 11.567 oz Body Mass Index (BMI) 31.2 Finger Stick Blood Glucose 278 Intake and Output for Last 24 Hours 08/05/19 08/06/19 08/07/19 23:59 23:59 23:59 Intake Total 1511.79 / 1519.29 4108.79 / 4114.29 1777.85 / 1777.85 Output Total 425 / 775 400 / 400 Balance 1511.79 / 1419.29 3683.79 / 3339.29 1377.85 / 1377.85 General: Awake, Alert, Oriented x 3 HEENT: PERRL, EOMI, Sclera Non Icteric Neck: Supple, Good ROM, No Lymph Node Enlargement Lungs: Clear to auscultation Cardiovascular: Irregular Rhythm, Normal S1, Normal S2, No Murmurs, No Rubs, No Gallops Vascular: No Carotid Bruits, Normal Femoral Pulses, Normal Radial Pulses, Normal Dorsalis Pedal Pulse, Normal Posterior Tibial Pulses Abdomen: Bowel Sounds Present, Soft, Non Tender, No HSM, No Organomegaly Extremities: No Cyanosis, No Clubbing, No edema Neurological: No Focal Motor or Sensory Deficit 08/06/19 12:50: APTT 86.5 H 08/06/19 19:16: APTT 69.3 H 08/07/19 02:00: PT 15.4 H, INR 1.2, APTT 62.0 H 08/07/19 05:00: WBC 12.2 H, RBC 4.45 L, Hgb 13.3, Hct 41.4, MCV 93.0, MCH 29.9, MCHC 32.1, Plt Count 124 L, MPV 10.3, Immature Gran % (Auto) 0.800, Neut % (Auto) 79.8 H, Lymph % (Auto) 9.2 L, [place] % (Auto) 9.7, Eos % (Auto) 0.1, Baso % (Auto) 0.4, Absolute Neuts (auto) 9.7 H, Nucleated RBC % 0 08/07/19 05:00: Sodium 141, Potassium 4.7, Chloride 114 H, Carbon Dioxide 23.0, Anion Gap 4 L, BUN 28 H, Creatinine 2.42 H, Est GFR (MDRD) Af Amer 34 L, Est GFR (MDRD) Non-Af 28 L, BUN/Creatinine Ratio 11.6, Glucose 121 H, Calcium 9.1 08/07/19 06:31: pH 7.32 L, Bicarbonate Actual 18.3 L, POC Total CO2 19, Base Excess -8 L, O2 Saturation 97, ABG pCO2 35.6, ABG pO2 98, Marcus Test POS 08/07/19 08:15: APTT 56.0 H Rhythm: EKG: ECHO: Stress Test: Cardiac Cath: PCI: CT Surgery: Holter monitor: EPS: PPM: CXR: Chest CT Scan: Medical Necessity - Tobacco Use Smoking Status: Never smoker Tobacco Use: Non-smoker Assessment/Plan 1. V. fib arrest: The patient had V. fib arrest which apparently was witnessed with initiation of CPR relatively quickly followed by 911 EMS deployment followed by defibrillation x2 in the field. His EKG does not have overt ST segment elevation although he does have an intraventricular conduction delay in the left bundle branch block, there is no overt J-point elevation. His stat echocardiogram demonstrates severe global LV dysfunction with EF around 30 to 35% with no localized wall motion abnormalities. It is unclear whether this is an old finding as he has not had an echocardiogram or seen a country printer apprentice in many many years. According to the family and they have no known knowledge of atrial fibrillation, atrial flutter, or poor LV function. It is possible his LV dysfunction is acute as a result of his V. fib arrest. This morning the patient's mental status markedly improved and he was successfully extubated without difficulty and is doing quite well. Patient's answers questions appropriately and denies any recent chest pain or anginal symptoms. At this point the patient is at high risk for acute renal failure given his acute on chronic renal failure with acute tubular necrosis, ATN. I believe at this time it would be unwise and unnecessary to proceed with left heart catheterization which may expose the patient to temporary or permanent renal failure. At some point he will require a diagnostic coronary angiogram however I would wait until the patient's renal function has resumed its baseline. This may not be at least until this SundayDepending upon which direction his creatinine goes. His creatinine today is 2.4 which is similar to yesterday. I would not recommend LV angiogram but rather just coronary angiography. 2. Atrial flutter: Patient's family states that they are unaware whether he has any kind of atrial arrhythmias and he is currently on no anticoagulation. Recommend continuing anticoagulation with IV heparin drip. Patient most likely benefit from normalization of his rhythm which can be done as an outpatient should he clinically improved. I would not recommend Coumadin therapy until we have completed his catheterization. 3. Hypotension: We will hold off on beta-blockers or FERNADNO inhibitors at this time until he is medically stabilized. Patient may require renal consultation if his creatinine continues to worsen.I would recommend initiating Coreg 3.125 mg p.o. twice daily as this is not renally excreted, and will control his heart rate and provide alpha blockade for afterload reduction. 4. I had a long thorough discussion with the patient's family, and explained and answered all their questions, and I recommended we hold off on catheterization until we get better determination of his mental status, but more importantly the direction in which his renal function goes. I explained to family that the patient is at very high risk for acute on chronic renal failure should be exposed to any contrast dye or other renal insults. 5. Thank you very much for the opportunity to participate in the cardiac care of your patient. Discussed with Dr. Landers. Code Visit Inpatient E&M: [id number] Subs Hosp L2
[2019-08-07] MEDS: Senna/Docusate Sodium 1 Tablet 2 TABLET PO (14:06)
--- NOTE | 2019-08-07 14:58 | CHAPLAIN ---
brief introduction to patient who is now alert and aware
[2019-08-07] MEDS: Carvedilol 3.125 MG TABLET PO ×2 (15:18→21:11)
[2019-08-07] MEDS: Acetaminophen 325 MG Tablet 650 MG PO (23:36)
[2019-08-08] VITALS (26 sets, daily range): BP systolic 145–180; BP diastolic 70–101; PULSE 55–74; RESP 13–25; TEMP 36.4–37.2; O2SAT 92–99
[2019-08-08] MEDS: HEPARIN/D5w 25,000 UNITS 25,000 UNITS/250 ML IV.SOLN. 8 UNITS IV (01:35)
[2019-08-08] MEDS: 0.9% Normal Saline 1,000 ML 125 ML IV ×2 (03:29→11:29)
[2019-08-08 04:34] LABS: Absolute Lymphocyte Count 1.21 X10^3/uL (0.83-4.51); Absolute Neutrophil Count 7.2 X10^3/uL (2.0-7.7); Basophil# 0.03 X10^3/uL; Basophil% 0.3 % (0-1); Eosinophil# 0.01 X10^3/uL; Eosinophils% 0.1 % (0-5); Hematocrit 38.1 % (40-54); Hemoglobin 12.4 g/dL (13.0-16.5); Lymphocyte # 1.21 X10^3/ul (4.0); Lymphocyte % 12.6 % (19-41); Mean Corp Hgb Conc 32.5 g/dL (32-36); Mean Corpuscular Hgb 30.2 pg (27.0-32.0); Mean Corpuscular Volume 92.7 fL (80-94); Mean Platelet Vol. 10.7 fl (6.2-12.0); Monocyte# 1.04 X10^3/uL; Monocyte% 10.8 % (0-10); NRBC Flagged by Analyzer 0 % (0-5); Neutrophil # 7.24 X10^3/uL (2.7-7.7); Neutrophil % 75.6 % (47-70); Platelet Count 120 K/mm3 (150-450); RBC Distribution Width SD 44.1 fl (35.1-43.9); Red Blood Count 4.11 M/mm3 (4.6-6.2); White Blood Count 9.6 K/mm3 (4.4-11.0)
[2019-08-08 04:37] LABS: Partial Thromboplast Time 63.1 Seconds (24.1-36.2)
[2019-08-08 04:43] LABS: Anion Gap 9 (5-15); BUN 37 mg/dL (7-18); Calcium,Total 9.2 mg/dL (8.5-10.1); Chloride 114 mmol/L (98-107); Creatinine, Serum 2.31 mg/dL (0.70-1.30); EST Glomerular Filtration Rate 29 mL/min (>60); Est Glom Filt Rate - Afr Amer 36 mL/min (>60); Estimated Creatinine Clearance 25.44 ml/min; Glucose 125 mg/dL (74-106); Magnesium 2.1 mg/dL (1.6-2.6); Sodium Level 144 mmol/L (136-145)
[2019-08-08 04:49] LABS: Phosphorus 3.4 mg/dL (2.5-4.9)
--- NOTE | 2019-08-08 06:11 | PN_ITS ---
Subjective: The patient was seen and examined at the bedside this morning. Events from the last 24 hours have been reviewed. The patient is currently afebrile, hemodynamically stable and maintaining appropriate oxygen saturations on room air. The patient denies the presence of shortness of breath or chest pain this morning. He is currently documented to be overall net +10.6 L for the admission. Objective: The patient's most recent lab work, culture data and imaging studies have all been personally reviewed. General: Alert, Cooperative, No apparent distress HEENT: Atraumatic, PERRLA, Normocephalic Oral: No Gingival or Mucosal Lesions/ Ulcerations Neck: Supple, No Nodes, Trachea Midline Lungs: No rhonchi, No wheeze, No rales, Diminished Cardiovascular: Normal S1, Normal S2, Irregular Rate Abdomen: Bowel Sounds Present, Soft, Non Tender, Obese Extremities: No clubbing, No cyanosis, Edema Skin: No breakdown Musculoskeletal: No Tenderness to Palpation of Joints or Extremities, No Muscle Wasting Lymphatic: No Cervical, Supraclavicular, or Inguinal Adenopathy Neurological: Cranial nerves II-XII grossly intact, Neuro grossly intact Psych/Mental Status: Normal Affect, Appropriate Vital Signs Temp Pulse Resp BP Pulse Ox 98.5 F 57 L 23 H 165/89 H 93 08/08/19 04:00 08/08/19 06:00 08/08/19 06:00 08/08/19 06:00 08/08/19 06:00 Oxygen Flow Rate (L/min) 1 Oxygen Delivery Method Room Air Weight: 208 lb 15.971 oz Body Mass Index (BMI) 31.2 Finger Stick Blood Glucose 278 Intake and Output for Last 24 Hours 08/06/19 08/07/19 08/08/19 23:59 23:59 23:59 Intake Total 4108.79 / 4114.29 5163.90 / 5163.90 789.14 / 789.14 Output Total 425 / 775 450 / 450 102 / 102 Balance 3683.79 / 3339.29 4713.90 / 4713.90 687.14 / 687.14 Labs (Last 48 Hours) 08/06/19 08/06/19 08/06/19 06:15 06:15 11:17 WBC RBC Hgb Hct MCV MCH MCHC RDW Std Deviation RDW Coeff of Arturo Plt Count MPV Immature Gran % (Auto) Neut % (Auto) Lymph % (Auto) [place] % (Auto) Eos % (Auto) Baso % (Auto) Absolute Neuts (auto) Absolute Lymphs (auto) Nucleated RBC % PT INR APTT 60.9 H Specimen Type Sample Site pH Bicarbonate Actual POC Total CO2 Base Excess O2 Saturation O2 % ABG pCO2 ABG pO2 Marcus Test O2 Delivery Device Vent Mode POC PEEP POC Pressure Suppt Blood Gas Notified Whom Blood Gas Notified Time Sodium Potassium Chloride Carbon Dioxide Anion Gap BUN Creatinine Estim Creat Clear Calc Est GFR (MDRD) Af Amer Est GFR (MDRD) Non-Af BUN/Creatinine Ratio Glucose Calcium Phosphorus Magnesium Troponin I 0.277 H POC Glucose 119 H 08/06/19 08/06/19 08/06/19 12:50 16:42 19:16 WBC RBC Hgb Hct MCV MCH MCHC RDW Std Deviation RDW Coeff of Arturo Plt Count MPV Immature Gran % (Auto) Neut % (Auto) Lymph % (Auto) [place] % (Auto) Eos % (Auto) Baso % (Auto) Absolute Neuts (auto) Absolute Lymphs (auto) Nucleated RBC % PT INR APTT 86.5 H 69.3 H Specimen Type Sample Site pH Bicarbonate Actual POC Total CO2 Base Excess O2 Saturation O2 % ABG pCO2 ABG pO2 Marcus Test O2 Delivery Device Vent Mode POC PEEP POC Pressure Suppt Blood Gas Notified Whom Blood Gas Notified Time Sodium Potassium Chloride Carbon Dioxide Anion Gap BUN Creatinine Estim Creat Clear Calc Est GFR (MDRD) Af Amer Est GFR (MDRD) Non-Af BUN/Creatinine Ratio Glucose Calcium Phosphorus Magnesium Troponin I POC Glucose 106 08/07/19 08/07/19 08/07/19 00:45 02:00 05:00 WBC 12.2 H RBC 4.45 L Hgb 13.3 Hct 41.4 MCV 93.0 MCH 29.9 MCHC 32.1 RDW Std Deviation 44.1 H RDW Coeff of Arturo 13.0 Plt Count 124 L MPV 10.3 Immature Gran % (Auto) 0.800 Neut % (Auto) 79.8 H Lymph % (Auto) 9.2 L [place] % (Auto) 9.7 Eos % (Auto) 0.1 Baso % (Auto) 0.4 Absolute Neuts (auto) 9.7 H Absolute Lymphs (auto) 1.12 Nucleated RBC % 0 PT 15.4 H INR 1.2 APTT 62.0 H Specimen Type Sample Site pH Bicarbonate Actual POC Total CO2 Base Excess O2 Saturation O2 % ABG pCO2 ABG pO2 Marcus Test O2 Delivery Device Vent Mode POC PEEP POC Pressure Suppt Blood Gas Notified Whom Blood Gas Notified Time Sodium Potassium Chloride Carbon Dioxide Anion Gap BUN Creatinine Estim Creat Clear Calc Est GFR (MDRD) Af Amer Est GFR (MDRD) Non-Af BUN/Creatinine Ratio Glucose Calcium Phosphorus Magnesium Troponin I POC Glucose 104 08/07/19 08/07/19 08/07/19 05:00 06:31 08:15 WBC RBC Hgb Hct MCV MCH MCHC RDW Std Deviation RDW Coeff of Arturo Plt Count MPV Immature Gran % (Auto) Neut % (Auto) Lymph % (Auto) [place] % (Auto) Eos % (Auto) Baso % (Auto) Absolute Neuts (auto) Absolute Lymphs (auto) Nucleated RBC % PT INR APTT 56.0 H Specimen Type ART Sample Site L Radial pH 7.32 L Bicarbonate Actual 18.3 L POC Total CO2 19 Base Excess -8 L O2 Saturation 97 O2 % 30 ABG pCO2 35.6 ABG pO2 98 Marcus Test POS O2 Delivery Device Vent Vent Mode CPAP PS POC PEEP 5 POC Pressure Suppt 5 Blood Gas Notified Whom ICU MD Blood Gas Notified Time 627 Sodium 141 Potassium 4.7 Chloride 114 H Carbon Dioxide 23.0 Anion Gap 4 L BUN 28 H Creatinine 2.42 H Estim Creat Clear Calc 24.28 Est GFR (MDRD) Af Amer 34 L Est GFR (MDRD) Non-Af 28 L BUN/Creatinine Ratio 11.6 Glucose 121 H Calcium 9.1 Phosphorus Magnesium Troponin I POC Glucose 08/08/19 08/08/19 08/08/19 04:19 04:19 04:19 WBC 9.6 RBC 4.11 L Hgb 12.4 L Hct 38.1 L MCV 92.7 MCH 30.2 MCHC 32.5 RDW Std Deviation 44.1 H RDW Coeff of Arturo 13.0 Plt Count 120 L MPV 10.7 Immature Gran % (Auto) 0.600 Neut % (Auto) 75.6 H Lymph % (Auto) 12.6 L [place] % (Auto) 10.8 H Eos % (Auto) 0.1 Baso % (Auto) 0.3 Absolute Neuts (auto) 7.2 Absolute Lymphs (auto) 1.21 Nucleated RBC % 0 PT INR APTT 63.1 H Specimen Type Sample Site pH Bicarbonate Actual POC Total CO2 Base Excess O2 Saturation O2 % ABG pCO2 ABG pO2 Marcus Test O2 Delivery Device Vent Mode POC PEEP POC Pressure Suppt Blood Gas Notified Whom Blood Gas Notified Time Sodium 144 Potassium 4.0 Chloride 114 H Carbon Dioxide 21.0 Anion Gap 9 BUN 37 H Creatinine 2.31 H Estim Creat Clear Calc 25.44 Est GFR (MDRD) Af Amer 36 L Est GFR (MDRD) Non-Af 29 L BUN/Creatinine Ratio 16.0 Glucose 125 H Calcium 9.2 Phosphorus Magnesium 2.1 Troponin I POC Glucose 08/08/19 04:19 WBC RBC Hgb Hct MCV MCH MCHC RDW Std Deviation RDW Coeff of Arturo Plt Count MPV Immature Gran % (Auto) Neut % (Auto) Lymph % (Auto) [place] % (Auto) Eos % (Auto) Baso % (Auto) Absolute Neuts (auto) Absolute Lymphs (auto) Nucleated RBC % PT INR APTT Specimen Type Sample Site pH Bicarbonate Actual POC Total CO2 Base Excess O2 Saturation O2 % ABG pCO2 ABG pO2 Marcus Test O2 Delivery Device Vent Mode POC PEEP POC Pressure Suppt Blood Gas Notified Whom Blood Gas Notified Time Sodium Potassium Chloride Carbon Dioxide Anion Gap BUN Creatinine Estim Creat Clear Calc Est GFR (MDRD) Af Amer Est GFR (MDRD) Non-Af BUN/Creatinine Ratio Glucose Calcium Phosphorus 3.4 Magnesium Troponin I POC Glucose Microbiology 08/07/19 03:20 Sputum, Induced/Lukens Gram Stain - Final Clinical Impression(s) from Imaging Studies Chest X-Ray 08/05/19 14:08 IMPRESSION: Gastric congestion. The tip of the endotracheal tube is at the level of the [place]. This should be pulled back 3 cm. Electronically Signed: Jerardo Aguillon, at 14:45 EST , Service support , Brain CT 08/05/19 14:17 IMPRESSION: Chronic involutional changes of the brain. N.B. : The above information has been verbally conveyed by Jerardo Aguillon to Andres Garza on 08/05/2019 15:48:24 (ET). Electronically Signed: Jerardo Henna, at 15:51 EST , Service support , ADDENDUM: 08/05/19 1558 IMPRESSION: Chronic involutional changes of the brain. N.B. : The above information has been verbally conveyed by Jerardo Aguillon to Andres Garza on 08/05/2019 15:48:24 (ET). Electronically Signed: Jerardo Aguillon, at 15:51 EST , Service support , Chest X-Ray 08/05/19 17:40 IMPRESSION: Endotracheal tube tip in the mid thoracic trachea. Electronically Signed: Reynold Gómez, at 18:56 EST Tel , Service support , Chest X-Ray 08/06/19 01:27 IMPRESSION: Right-sided central venous catheter tip at the cavoatrial junction. Mild retrocardiac atelectasis versus infiltrate. at 0210 Reported and signed by: Darlene Carlos MD Electronically Signed: Darlene Carlos MD at 2:10 EST Tel , Service support , KUB X-Ray 08/06/19 06:54 IMPRESSION: Nonspecific bowel gas pattern. Electronically Signed: Jerardo Aguillon, at 10:37 EST , Service support , Medical Necessity - Tobacco Use Smoking Status: Never smoker Tobacco Use: Non-smoker Assessment/Plan All Active Problems Cardiac arrest with ventricular fibrillation (Acute) LV dysfunction (Acute) Diabetes (Acute) Atrial flutter (Acute) RECOMMENDATIONS: 1. Defer timing of cardiac catheterization to cardiology. 2. Discontinue supplemental IV fluids as the patient currently has a diet order and is 10+ liters positive for the hospitalization. 3. Encourage incentive spirometer use and mobilize patient as tolerated. IMPRESSIONS: 1. V. fib arrest/hypokalemia The patient has been stabilized from a medical perspective. Cardiology is currently following with plans for cardiac catheterization at some point. Will defer primary medical management to cardiology accordingly. Electrolyte's are stable. 2. New onset a flutter Continue current medical management with heparin and beta-blockade. 3. Systolic congestive heart failure Echocardiogram did reveal a depressed ejection fraction to 35%. Continue current medical management as noted above. 4. Acute respiratory failure Resolved at this time. The patient was able to be extubated on the morning of 08/07. He is currently maintaining appropriate oxygen saturations on room air. Continue to encourage incentive parameter use and mobilize patient as tolerated. 5. Acute kidney injury Likely secondary to perturbations and hemodynamics in the setting of #1. The patient remains hemodynamically stable. The patient is currently 10+ liters positive for the hospitalization. Therefore, supplemental IV fluids can be discontinued from my perspective. 6. BPH/advanced age/poor medical history Complicates care, management, recovery and prognosis. Okay to resume outpatient medications. This note was generated with [employer] dictation software. It may contain incorrect words, spelling, and punctuation that were not noted in checking the note before signing. Code Visit Inpatient E&M: [id number] [facility] Hosp L3
--- NOTE | 2019-08-08 09:18 | PN_ITS ---
Patient Problems: Active and Suspected Problems Cardiac arrest with ventricular fibrillation (Acute) LV dysfunction (Acute) Diabetes (Acute) Atrial flutter (Acute) Subjective: No issues overnight, seems to be doing better today. A little bit of confusion as to where he is but he knows who he is. Vitals/I&O's: Vital Signs Temp Pulse Resp BP Pulse Ox 97.6 F L 61 14 165/92 H 96 08/08/19 08:00 08/08/19 08:00 08/08/19 08:00 08/08/19 08:00 08/08/19 08:00 Oxygen Flow Rate (L/min) 1 Oxygen Delivery Method Room Air Weight: 208 lb 15.971 oz Body Mass Index (BMI) 31.2 Finger Stick Blood Glucose 278 Intake and Output for Last 24 Hours 08/06/19 08/07/19 08/08/19 23:59 23:59 23:59 Intake Total 4108.79 / 4114.29 5163.90 / 5163.90 789.14 / 789.14 Output Total 425 / 775 450 / 450 102 / 102 Balance 3683.79 / 3339.29 4713.90 / 4713.90 687.14 / 687.14 General: Alert, Cooperative, No apparent distress HEENT: Atraumatic, PERRLA, EOMI, Normocephalic Oral: Moist Mucosa Neck: Supple, No JVD Lungs: Clear to auscultation, Normal air movement, No rhonchi, No wheeze, No rales, Diminished Cardiovascular: Regular rate, Regular Rhythm, Normal S1, Normal S2, No murmurs Abdomen: Soft, Non Tender, Non-Distended, No Hepato-splenomegaly, Obese Extremities: Capillary Refill Less than 3 Seconds, Edema Skin: No rashes, No breakdown Neurological: Neuro grossly intact, Sensory exam intact to light touch and pain Psych/Mental Status: Normal Affect, Appropriate Microbiology Past 72 Hours 08/07/19 03:20 Sputum, Induced/Lukens Gram Stain - Final Laboratory Results 08/08/19 04:19: WBC 9.6, RBC 4.11 L, Hgb 12.4 L, Hct 38.1 L, MCV 92.7, MCH 30.2, MCHC 32.5, RDW Std Deviation 44.1 H, RDW Coeff of Arturo 13.0, Plt Count 120 L, MPV 10.7, Immature Gran % (Auto) 0.600, Neut % (Auto) 75.6 H, Lymph % (Auto) 12.6 L, [place] % (Auto) 10.8 H, Eos % (Auto) 0.1, Baso % (Auto) 0.3, Absolute Neuts (auto) 7.2, Absolute Lymphs (auto) 1.21, Nucleated RBC % 0 08/08/19 04:19: APTT 63.1 H 08/08/19 04:19: Sodium 144, Potassium 4.0, Chloride 114 H, Carbon Dioxide 21.0, Anion Gap 9, BUN 37 H, Creatinine 2.31 H, Estim Creat Clear Calc 25.44, Est GFR (MDRD) Af Amer 36 L, Est GFR (MDRD) Non-Af 29 L, BUN/Creatinine Ratio 16.0, Glucose 125 H, Calcium 9.2, Magnesium 2.1 08/08/19 04:19: Phosphorus 3.4 Current Medications Acetaminophen (Tylenol) 650 mg PO Q6H PRN PRN PRN Reason: Pain Score 1-5/10 Last Admin: 08/07/19 23:36 Dose: 650 mg Documented by: Carvedilol (Coreg) 3.125 mg PO BID [facility] Last Admin: 08/07/19 21:11 Dose: 3.125 mg Documented by: Dextrose (D50w Syringe) 0 gm IV X1 PRN; Protocol PRN Reason: Hypoglycemia Glucagon () 1 mg IM .X1 PRN PRN Reason: Hypoglycemia Heparin Sodium (Porcine) (Heparin Na) 0 unit IV UD PRN; Protocol Sodium Chloride () 250 mls @ 15 mls/hr IV .[id number] PRN PRN Reason: Saline Flush Sodium Chloride () 1,000 mls @ 125 mls/hr IV .Q8H [facility] Last Infusion: 08/08/19 05:49 Dose: 125 mls/hr Documented by: Heparin Sodium/Dextrose () 25,000 units in 250 mls @ 12 mls/hr IV .[id number] OSMIN; Protocol Last Admin: 08/08/19 08:51 Dose: Not Given Documented by: Famotidine 20 mg/ Sodium (Chloride) 10 mls @ 300 mls/hr IV DAILY [facility] Last Infusion: 08/07/19 09:55 Dose: Infused Documented by: Oxycodone HCl (Oxyir) 5 mg PO Q6H PRN PRN PRN Reason: Pain Score 6-10/10 Sodium Chloride () 10 - 40 ml IV UD PRN PRN Reason: SALINE FLUSH Last Admin: 08/07/19 15:18 Dose: 20 ml Documented by: STROKE Vital Signs/Narrative: Vital Signs Temp Pulse Resp BP Pulse Ox 08/08/19 08:00 97.6 F L 61 14 165/92 H 96 08/08/19 07:17 94 08/08/19 07:00 60 17 151/91 H 97 08/08/19 06:00 57 L 23 H 165/89 H 93 Medical Necessity - Tobacco Use Smoking Status: Never smoker Tobacco Use: Non-smoker Assessment/Plan All Active Problems Cardiac arrest with ventricular fibrillation (Acute) LV dysfunction (Acute) Diabetes (Acute) Atrial flutter (Acute) 1. V. fib arrest/new onset a flutter/acute systolic CHF/acute respiratory failure/CALLIE -Creatinine increased from 1.45 to 2.31 today, his baseline is unknown -Hopefully creatinine can improve over the weekend so he can have a cardiac cath on Sunday by cardiology -Troponin peaked at 0.361 -Had a central line placed was able to discontinue the dopamine once the amiodarone drip was discontinued -extubated 08/07/2019 -Appreciate ICU and cardiology assistance -Continue with heparin drip 2. Type 2 diabetes -He was not on any medications at home -Continue with Accu-Cheks and sliding scale insulin 3. BPH -Is on Flomax and doxazosin as an outpatient -Will hold DVT: Heparin drip Code Visit Inpatient E&M: [id number] Subs Hosp L2
[2019-08-08] MEDS: Carvedilol 3.125 MG TABLET PO ×2 (10:26→22:01)
[2019-08-08] MEDS: hydrALAZINE 10 MG Tablet PO ×3 (10:26→22:00)
--- NOTE | 2019-08-08 10:48 | CASEMGMT ---
RN CM Note: Pt is extubated, on room air. PT/OT notes reviewed. Pt will be in hospital over weekend with plans for heart cath prior to dc. prefers pt return home. States he was very active prior to admission. Will continue to follow PT/OT notes. Laurent AZARN RN ACM
[2019-08-08] MEDS: Isosorbide Mononitrate 30 MG Tablet PO (11:30)
--- NOTE | 2019-08-08 13:04 | PCM.PN.CARD ---
Subjectve: Patient doing very well this morning. Continues to remain lucid and answer questions appropriately. Blood pressure is elevated. Telemetry with atrial fibrillation with controlled ventricular response. Rare PVC noted. Coreg started yesterday. Objective: Vital Signs Temp Pulse Resp BP Pulse Ox 97.6 F L 66 14 165/92 H 96 08/08/19 08:00 08/08/19 12:00 08/08/19 08:00 08/08/19 08:00 08/08/19 08:00 Oxygen Flow Rate (L/min) 1 Oxygen Delivery Method Room Air Weight: 208 lb 15.971 oz Body Mass Index (BMI) 31.2 Finger Stick Blood Glucose 278 Intake and Output for Last 24 Hours 08/06/19 08/07/19 08/08/19 23:59 23:59 23:59 Intake Total 4108.79 / 4114.29 5163.90 / 5163.90 1920.80 / 1920.80 Output Total 425 / 775 450 / 450 102 / 102 Balance 3683.79 / 3339.29 4713.90 / 4713.90 1818.80 / 1818.80 General: Awake, Alert, Oriented x 3 HEENT: PERRL, EOMI, Sclera Non Icteric Neck: Supple, Good ROM, No Lymph Node Enlargement Lungs: Clear to auscultation Cardiovascular: Irregular Rhythm, Normal S1, Normal S2, No Murmurs, No Rubs, No Gallops Vascular: No Carotid Bruits, Normal Femoral Pulses, Normal Radial Pulses, Normal Dorsalis Pedal Pulse, Normal Posterior Tibial Pulses Abdomen: Bowel Sounds Present, Soft, Non Tender, No HSM, No Organomegaly Extremities: No Cyanosis, No Clubbing, No edema Neurological: No Focal Motor or Sensory Deficit 08/08/19 04:19: WBC 9.6, RBC 4.11 L, Hgb 12.4 L, Hct 38.1 L, MCV 92.7, MCH 30.2, MCHC 32.5, Plt Count 120 L, MPV 10.7, Immature Gran % (Auto) 0.600, Neut % (Auto) 75.6 H, Lymph % (Auto) 12.6 L, [place] % (Auto) 10.8 H, Eos % (Auto) 0.1, Baso % (Auto) 0.3, Absolute Neuts (auto) 7.2, Nucleated RBC % 0 08/08/19 04:19: APTT 63.1 H 08/08/19 04:19: Sodium 144, Potassium 4.0, Chloride 114 H, Carbon Dioxide 21.0, Anion Gap 9, BUN 37 H, Creatinine 2.31 H, Est GFR (MDRD) Af Amer 36 L, Est GFR (MDRD) Non-Af 29 L, BUN/Creatinine Ratio 16.0, Glucose 125 H, Calcium 9.2, Magnesium 2.1 08/08/19 04:19: Phosphorus 3.4 Rhythm: EKG: ECHO: Stress Test: Cardiac Cath: PCI: CT Surgery: Holter monitor: EPS: PPM: CXR: Chest CT Scan: Medical Necessity - Tobacco Use Smoking Status: Never smoker Tobacco Use: Non-smoker Assessment/Plan 1. V. fib arrest: The patient had V. fib arrest which apparently was witnessed with initiation of CPR relatively quickly followed by 911 EMS deployment followed by defibrillation x2 in the field. His EKG does not have overt ST segment elevation although he does have an intraventricular conduction delay in the left bundle branch block, there is no overt J-point elevation. His stat echocardiogram demonstrates severe global LV dysfunction with EF around 30 to 35% with no localized wall motion abnormalities. It is unclear whether this is an old finding as he has not had an echocardiogram or seen a preschool education director in many many years. According to the family and they have no known knowledge of atrial fibrillation, atrial flutter, or poor LV function. It is possible his LV dysfunction is acute as a result of his V. fib arrest. This morning the patient's mental status markedly improved and he was successfully extubated without difficulty and is doing quite well. Patient's answers questions appropriately and denies any recent chest pain or anginal symptoms. At this point the patient is at high risk for acute renal failure given his acute on chronic renal failure with acute tubular necrosis, ATN. I believe at this time it would be unwise and unnecessary to proceed with left heart catheterization which may expose the patient to temporary or permanent renal failure. Patient's creatinine today is 2.3, and his baseline is 1.1. Recommend we hold off on diagnostic catheterization until Sunday morning. Patient will require hospitalization until that time given his recent cardiac arrest as this was most likely primary cardiac arrhythmia in origin. I would not recommend LV angiogram but rather just coronary angiography. 2. Atrial flutter: Patient's family states that they are unaware whether he has any kind of atrial arrhythmias and he is currently on no anticoagulation. Recommend continuing anticoagulation with IV heparin drip or Lovenox. Patient most likely benefit from normalization of his rhythm which can be done as an outpatient should he clinically improved. I would not recommend Coumadin therapy until we have completed his catheterization. 3. 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 Patient may require renal consultation if his creatinine continues to worsen.I would recommend initiating Coreg 3.125 mg p.o. twice daily as this is not renally excreted, and will control his heart rate and provide alpha blockade for afterload reduction. We can titrate this up as needed. In addition I recommend starting hydralazine 10 mg p.o. tid for afterload reduction as well as Imdur 30 mg p.o. daily for antihypertensive measures. 4. I had a long thorough discussion with the patient's family, and explained and answered all their questions, and I recommended we hold off on catheterization until we get better determination of his mental status, but more importantly the direction in which his renal function goes. I explained to family that the patient is at very high risk for acute on chronic renal failure should be exposed to any contrast dye or other renal insults. 5. Thank you very much for the opportunity to participate in the cardiac care of your patient. We will plan for left heart catheterization on Sunday. Code Visit Inpatient E&M: 20380 Subs Hosp L2
--- NOTE | 2019-08-08 15:11 | CHAPLAIN ---
Type of Pastoral Visit ___ Initial Visit _x__ Follow-up Visit ___ On-call Visit ___ General Patient Visit ___ Spiritual Assessment ___ Family Conference ___ Bereavement ___ Rapid Response ___ Code Blue ___ Other (describe below) Pastoral Care Referral From ___ Patient _x__ Family ___ Nurse ___ Physician ___ Crm Campaign Manager ___ Nurse Plastics ___ Other (describe below) Sacrament/Intervention _x__ Active listening ___ Anointing ___ Taoism ___ Bereavement ___ Communion ___ Tatiana exploration ___ ___ Life review _x__ Prayer ___ Reconciliation ___ Sacrament of Sick _x__ Supportive presence ___ Wedding ___ Other (describe below) Pastoral Comments son of patient approaches this transit vehicle inspector in hallway and commences to talk about patient's improvement and his appreciation for staff including the spiritual care support received; also talked with the patient himself in room to affirm his progress and offer support and prayer;
[2019-08-08] MEDS: Acetaminophen 325 MG Tablet 650 MG PO ×2 (16:50→23:46)
[2019-08-08] MEDS: oxyCODONE 5 MG Tablet PO (23:10)
--- NOTE | 2019-08-08 23:56 | EKG12_ITS ---
Test Reason : POST CPR Blood Pressure : / mmHG Vent. Rate : 072 BPM Atrial Rate : 000 BPM P-R Int : 000 ms QRS Dur : 104 ms QT Int : 624 ms P-R-T Axes : 000 049 056 degrees QTc Int : 683 ms Undetermined rhythm Anteroseptal infarct ,age undetermined Inferior injury pattern Prolonged QT Consider right ventricular involvement in acute inferior infarct Abnormal ECG Confirmed by MALCOM MORAN ([id number]), senior editor OLI MARTINEZ ([id number]) on 08/12/2019 2:13:14 PM Referred By: Venkata Gann Confirmed By:MALCOM MORAN
[2019-08-09] VITALS (22 sets, daily range): BP systolic 141–208; BP diastolic 86–119; PULSE 66–90; RESP 18–34; TEMP 36.3–36.9; O2SAT 92–98
--- NOTE | 2019-08-09 00:48 | PCM.HOSP.N ---
Hospitalist Note Notified by nursing that patient has been having a lot of chest pain. Went to evaluate the patient and asked if he was having chest pain and then he said no said he was having neck pain and then asked if he is having neck pain the said now. On exam of his neck he does have a reproducible neck pain he does have reproducible anterior as well as lateral left-sided chest pain. Patient is also very confused. Earlier had received oxycodone and acetaminophen. Patient is confused at this time as well. Assessment and plan 1. Chest pain: EKG showed no acute process this chest acute coronary syndrome. Chest pain is reproducible and this is musculoskeletal secondary to the cardiopulmonary resuscitation that he had received previously. No additional work-up at this time. We will add Lidoderm to his regimen 2. Delirium: Likely multifactorial: Due to possible ICU psychosis, poor sleep hygiene, medications, particularly narcotics. Told nursing to not give patient narcotics while he is confused. Discussed with the patient's family at bedside.
--- NOTE | 2019-08-09 00:52 | CPS ---
Pt. put on 4L NC to meet oxygenation demands
[2019-08-09] MEDS: QUEtiapine 25 MG Tablet PO (01:00)
[2019-08-09] MEDS: Lidocaine 5% Patch 1 PATCH TOPICAL (01:03)
[2019-08-09] MEDS: hydrALAZINE 10 MG Tablet PO ×3 (05:56→21:51)
[2019-08-09 07:17] LABS: Absolute Lymphocyte Count 0.97 X10^3/uL (0.83-4.51); Absolute Neutrophil Count 10.7 X10^3/uL (2.0-7.7); Basophil# 0.02 X10^3/uL; Basophil% 0.2 % (0-1); Eosinophil# 0.04 X10^3/uL; Eosinophils% 0.3 % (0-5); Hematocrit 38.8 % (40-54); Hemoglobin 12.9 g/dL (13.0-16.5); Lymphocyte # 0.97 X10^3/ul (4.0); Lymphocyte % 7.3 % (19-41); Mean Corp Hgb Conc 33.2 g/dL (32-36); Mean Corpuscular Volume 90.2 fL (80-94); Mean Platelet Vol. 10.7 fl (6.2-12.0); Monocyte% 10.6 % (0-10); NRBC Flagged by Analyzer 0 % (0-5); Neutrophil # 10.72 X10^3/uL (2.7-7.7); Neutrophil % 80.8 % (47-70); POSITIVE MORPHOLOGY YES; Platelet Count 164 K/mm3 (150-450); RBC Distribution Width SD 42.8 fl (35.1-43.9); White Blood Count 13.3 K/mm3 (4.4-11.0)
[2019-08-09 07:18] LABS: Differential Indicated SCAN CRITERIA MET
[2019-08-09 07:27] LABS: Partial Thromboplast Time 39.4 Seconds (24.1-36.2)
[2019-08-09 07:45] LABS: Anion Gap 11 (5-15); BUN 42 mg/dL (7-18); BUN/Creat Ratio 19.6 RATIO (10-20); Calcium,Total 9.7 mg/dL (8.5-10.1); Chloride 115 mmol/L (98-107); Creatinine, Serum 2.14 mg/dL (0.70-1.30); EST Glomerular Filtration Rate 32 mL/min (>60); Est Glom Filt Rate - Afr Amer 39 mL/min (>60); Estimated Creatinine Clearance 27.46 ml/min; Glucose 135 mg/dL (74-106); Potassium 4.1 mmol/L (3.5-5.1); Sodium Level 143 mmol/L (136-145)
--- NOTE | 2019-08-09 07:56 | PN_ITS ---
Subjective: Patient did okay overnight from a hemodynamic standpoint. However, patient has been impulsive trying to get out of bed. Patient's was at the bedside and thinks this is secondary to constipation despite the fact the patient has had documented bowel movements. Patient not able to report a productive cough at this time. No bleeding complications have been reported. Patient reportedly had very little sleep overnight. General: Alert, Confused, Disoriented, Non-Cooperative, - HEENT: Atraumatic, PERRLA, EOMI, Normocephalic, - - Slight scleral injection Oral: Moist Mucosa, No Gingival or Mucosal Lesions/ Ulcerations Neck: Supple, No JVD, No Nodes, Trachea Midline Lungs: No wheeze, No rales, Diminished, Rhonchi - Improved with coughing, - - Fair effort on examination Cardiovascular: Normal S1, Normal S2, No murmurs, Irregular Rate, No rub noted, No Gallop Abdomen: Bowel Sounds Present, Soft, Non Tender, Distended - Slightly Extremities: No clubbing, No cyanosis, Edema Skin: No rashes, No breakdown Musculoskeletal: No Tenderness to Palpation of Joints or Extremities Lymphatic: No Cervical, Supraclavicular, or Inguinal Adenopathy Neurological: Cranial nerves II-XII grossly intact, Neuro grossly intact, Motor Exam 5/5 strength throughout Psych/Mental Status: Anxious, Impulsive, Restless Vital Signs Temp Pulse Resp BP Pulse Ox 36.7 C 74 20 H 151/86 H 95 08/09/19 05:50 08/09/19 05:56 08/09/19 05:50 08/09/19 05:56 08/09/19 06:56 Oxygen Flow Rate (L/min) 4 Oxygen Delivery Method Nasal Cannula Weight: 94.6 kg Body Mass Index (BMI) 31.2 Finger Stick Blood Glucose 278 Intake and Output for Last 24 Hours 08/07/19 08/08/19 08/09/19 23:59 23:59 23:59 Intake Total 5163.90 / 5163.90 2725.87 / 2725.87 48.4 / 48.4 Output Total 450 / 450 202 / 202 Balance 4713.90 / 4713.90 2523.87 / 2523.87 48.4 / 48.4 Labs (Last 48 Hours) 08/07/19 08/08/19 08/08/19 08:15 04:19 04:19 WBC 9.6 RBC 4.11 L Hgb 12.4 L Hct 38.1 L MCV 92.7 MCH 30.2 MCHC 32.5 RDW Std Deviation 44.1 H RDW Coeff of Arturo 13.0 Plt Count 120 L MPV 10.7 Immature Gran % (Auto) 0.600 Neut % (Auto) 75.6 H Lymph % (Auto) 12.6 L [place] % (Auto) 10.8 H Eos % (Auto) 0.1 Baso % (Auto) 0.3 Absolute Neuts (auto) 7.2 Absolute Lymphs (auto) 1.21 Nucleated RBC % 0 APTT 56.0 H 63.1 H Sodium Potassium Chloride Carbon Dioxide Anion Gap BUN Creatinine Estim Creat Clear Calc Est GFR (MDRD) Af Amer Est GFR (MDRD) Non-Af BUN/Creatinine Ratio Glucose Calcium Phosphorus Magnesium 08/08/19 08/08/19 08/09/19 04:19 04:19 07:06 WBC RBC Hgb Hct MCV MCH MCHC RDW Std Deviation RDW Coeff of Arturo Plt Count MPV Immature Gran % (Auto) Neut % (Auto) Lymph % (Auto) [place] % (Auto) Eos % (Auto) Baso % (Auto) Absolute Neuts (auto) Absolute Lymphs (auto) Nucleated RBC % APTT 39.4 H Sodium 144 Potassium 4.0 Chloride 114 H Carbon Dioxide 21.0 Anion Gap 9 BUN 37 H Creatinine 2.31 H Estim Creat Clear Calc 25.44 Est GFR (MDRD) Af Amer 36 L Est GFR (MDRD) Non-Af 29 L BUN/Creatinine Ratio 16.0 Glucose 125 H Calcium 9.2 Phosphorus 3.4 Magnesium 2.1 08/09/19 08/09/19 07:06 07:06 WBC 13.3 H RBC 4.30 L Hgb 12.9 L Hct 38.8 L MCV 90.2 MCH 30.0 MCHC 33.2 RDW Std Deviation 42.8 RDW Coeff of Arturo 13.0 Plt Count 164 MPV 10.7 Immature Gran % (Auto) 0.800 Neut % (Auto) 80.8 H Lymph % (Auto) 7.3 L [place] % (Auto) 10.6 H Eos % (Auto) 0.3 Baso % (Auto) 0.2 Absolute Neuts (auto) 10.7 H Absolute Lymphs (auto) 0.97 Nucleated RBC % 0 APTT Sodium 143 Potassium 4.1 Chloride 115 H Carbon Dioxide 17.0 L Anion Gap 11 BUN 42 H Creatinine 2.14 H Estim Creat Clear Calc 27.46 Est GFR (MDRD) Af Amer 39 L Est GFR (MDRD) Non-Af 32 L BUN/Creatinine Ratio 19.6 Glucose 135 H Calcium 9.7 Phosphorus Magnesium Microbiology 08/07/19 03:20 Sputum, Induced/Lukens Gram Stain - Final 08/07/19 03:20 Sputum, Induced/Lukens Respiratory Culture - Final Serratia marcescens Medical Necessity - Tobacco Use Smoking Status: Never smoker Tobacco Use: Non-smoker Assessment/Plan All Active Problems Cardiac arrest with ventricular fibrillation (Acute) LV dysfunction (Acute) Diabetes (Acute) Atrial flutter (Acute) RECOMMENDATIONS: 1. Wean oxygen as tolerated. 2. Treat Serratia given delirium 3. Delirium protocol 4. Heart catheterization timing per cardiology 5. Increase activity as tolerated IMPRESSIONS: 1. V. fib arrest/hypokalemia Patient is opening eyes spontaneously. Patient has had ROSC and appears to be doing okay at this time. Transient hypotension appears to be secondary to sedative medications and bradycardia. Cardiology is currently following. Patient appears to be doing okay from a cardiac standpoint. Anticipate possible heart catheterization on Sunday 2. New onset a flutter Patient reportedly does not have a history of A. fib. Patient has not been treated here previously. Patient does have a depressed EF with atrial enlargement. Patient currently on p.o. amiodarone. Patient is fully anticoagulated. 3. Systolic congestive heart failure Unclear chronicity. Patient does not appear to follow with physicians regularly. Patient does have an EF of 30 to 35%. Unclear if this is secondary to acute event. If chronic, this would predispose patient to the V. fib arrest. Cardiology is currently following. Patient's blood pressure is tolerating be ta-blockers at this time. Would defer to cardiology on possible catheterization timing. Patient's creatinine appears to be going up despite blood pressure support. 4. Acute respiratory failure Multifactorial etiology. Patient is growing Serratia in the sputum sample. Doubt true pneumonia, but given patient's delirium, treatment would be indicated. Patient will be placed on ceftriaxone for 5 days. Continue to wean oxygen as tolerated. 5. BPH/advanced age/poor medical history Complicates care, management, recovery and prognosis. [place] in place. Monitor urine output. Poor historian. Unclear if patient's creatinine of 1.45 is his baseline versus other lab values. Patient also has an elevated glucose indicating diabetes mellitus. This is not known by the family. 6. Acute kidney injury Unclear baseline, but patient has increased up to 2.42 on creatinine and urine output is improving. Continue to support hemodynamics. Inaccurate urine output noted, but patient is up 3 kg from admission Code Visit Inpatient E&M: 31707 Subs Hosp L3
[2019-08-09] MEDS: Heparin Injection (Vial) 5,000 UNIT/ML VIAL IV ×3 (08:21→22:54)
[2019-08-09] MEDS: Carvedilol 3.125 MG TABLET PO (08:26)
[2019-08-09] MEDS: Isosorbide Mononitrate 30 MG Tablet PO (08:26)
[2019-08-09] MEDS: HEPARIN/D5w 25,000 UNITS 25,000 UNITS/250 ML IV.SOLN. 10 UNITS IV (08:28)
[2019-08-09] MEDS: 0.9% Saline Lock 10 ML Syringe IV ×4 (09:07→18:22)
[2019-08-09] MEDS: Furosemide 40 MG/4 ML Vial IV ×2 (09:07→15:48)
[2019-08-09] MEDS: Ceftriaxone 1 GM/50 ML BAG IV (10:18)
--- NOTE | 2019-08-09 11:16 | RAD_ITS ---
STUDY: X-RAY CHEST REASON FOR EXAM: Male, 74 years old. Respiratory distress. TECHNIQUE: AP and lateral views of the chest. COMPARISON: 08/06/2019. FINDINGS: The endotracheal tube and the nasogastric tube have been removed. The right internal jugular central venous catheter is in stable position. There is patchy infiltrate in the medial aspect of the right lower lung likely in the right lower lobe new since the previous examination. There is no demonstrated pleural abnormality. Normal size heart. Normal mediastinum and pola. Normal visualized pulmonary arteries. There is atherosclerotic calcification of the aortic arch with tortuosity. The bony structures are unchanged. There is no demonstrated abnormality of the visualized soft tissue structures of the upper abdomen. RAD/Chest PA and Lateral IMPRESSION: Right lower lobe infiltrate likely due to pneumonia. Electronically Signed: Patrick Petit MD at 15:44 EST Tel , Service support ,
--- NOTE | 2019-08-09 11:20 | PCM.PN.CARD ---
Subjectve: The patient went into some respiratory distress last night. This morning, he received Lasix 40 mg IV x1. Admits to having significant shortness of breath. According to his , he did not sleep well, was short of breath and unable to lie flat. Objective: Vital Signs Temp Pulse Resp BP Pulse Ox 97.3 F L 82 34 H 195/115 H 92 08/09/19 08:05 08/09/19 08:05 08/09/19 08:56 08/09/19 08:05 08/09/19 08:56 Oxygen Flow Rate (L/min) 4 Oxygen Delivery Method Nasal Cannula Weight: 94.6 kg Body Mass Index (BMI) 31.2 Finger Stick Blood Glucose 278 Intake and Output for Last 24 Hours 08/07/19 08/08/19 08/09/19 23:59 23:59 23:59 Intake Total 5163.90 / 5163.90 2725.87 / 2725.87 118.13 / 118.13 Output Total 450 / 450 202 / 202 Balance 4713.90 / 4713.90 2523.87 / 2523.87 118.13 / 118.13 General: Awake, Alert HEENT: Atraumatic Neck: Supple, Good ROM, No Lymph Node Enlargement Lungs: Inspiratory Wheezes - [place], Expiratory Wheezes-[place] Cardiovascular: Irregular Rhythm Vascular: No Carotid Bruits, Normal Femoral Pulses, Normal Radial Pulses, Normal Dorsalis Pedal Pulse, Normal Posterior Tibial Pulses Abdomen: Bowel Sounds Present, Soft, Non Tender, No HSM, No Organomegaly Extremities: No Cyanosis, No Clubbing, No edema Neurological: No Focal Motor or Sensory Deficit Psych/Mental Status: Agitated, Anxious 08/09/19 07:06: APTT 39.4 H 08/09/19 07:06: WBC 13.3 H, RBC 4.30 L, Hgb 12.9 L, Hct 38.8 L, MCV 90.2, MCH 30.0, MCHC 33.2, Plt Count 164, MPV 10.7, Immature Gran % (Auto) 0.800, Neut % (Auto) 80.8 H, Lymph % (Auto) 7.3 L, [place] % (Auto) 10.6 H, Eos % (Auto) 0.3, Baso % (Auto) 0.2, Absolute Neuts (auto) 10.7 H, Nucleated RBC % 0 08/09/19 07:06: Sodium 143, Potassium 4.1, Chloride 115 H, Carbon Dioxide 17.0 L, Anion Gap 11, BUN 42 H, Creatinine 2.14 H, Est GFR (MDRD) Af Amer 39 L, Est GFR (MDRD) Non-Af 32 L, BUN/Creatinine Ratio 19.6, Glucose 135 H, Calcium 9.7 Rhythm: EKG: ECHO: Stress Test: Cardiac Cath: PCI: CT Surgery: Holter monitor: EPS: PPM: CXR: Chest CT Scan: Medical Necessity - Tobacco Use Smoking Status: Never smoker Tobacco Use: Non-smoker Assessment/Plan 1. Status post out of hospital ventricular fibrillation cardiac arrest. Plan for cardiac catheterization down the road. Timing of the invasive assessment to be determined and by further clinical course. No malignant ventricular arrythmias on telemetry 2. New onset congestive heart failure with estimated left ventricular ejection fraction in the range of 30 to 35%. Respiratory distress, questionably, pulmonary edema. Will order a chest x-ray, BNP. 3. Atrial fibrillation of unknown duration. Rate appears to be well controlled. 4. Acute on chronic renal insufficiency. If, indeed, the presentation is consistent with pulmonary edema, the patient will need aggressive diuresis with adjustments of loop diuretics, based on the GFR. 5. Hypoxic encephalopathy, mental status is waxing and waning. Code Visit Inpatient E&M: 61555 [facility] Hosp L3
--- NOTE | 2019-08-09 12:15 | PN_ITS ---
Patient Problems: Active and Suspected Problems Cardiac arrest with ventricular fibrillation (Acute) LV dysfunction (Acute) Diabetes (Acute) Atrial flutter (Acute) Subjective: Has some respiratory distress this morning, and was restless all night. He is unable to lie flat. Vitals/I&O's: Vital Signs Temp Pulse Resp BP Pulse Ox 97.3 F L 82 34 H 195/115 H 92 08/09/19 08:05 08/09/19 08:05 08/09/19 08:56 08/09/19 08:05 08/09/19 08:56 Oxygen Flow Rate (L/min) 4 Oxygen Delivery Method Nasal Cannula Weight: 208 lb 8.917 oz Body Mass Index (BMI) 31.2 Finger Stick Blood Glucose 278 Intake and Output for Last 24 Hours 08/07/19 08/08/19 08/09/19 23:59 23:59 23:59 Intake Total 5163.90 / 5163.90 2725.87 / 2725.87 468.13 / 468.13 Output Total 450 / 450 202 / 202 650 / 650 Balance 4713.90 / 4713.90 2523.87 / 2523.87 -181.87 / -181.87 General: Alert, Cooperative, No apparent distress HEENT: Atraumatic, PERRLA, EOMI, Normocephalic Oral: Moist Mucosa Neck: Supple, No JVD Lungs: Significant rhonchi in all lung [place] Cardiovascular: Regular rate, Regular Rhythm, Normal S1, Normal S2, No murmurs Abdomen: Soft, Non Tender, Non-Distended, No Hepato-splenomegaly, Obese Extremities: Capillary Refill Less than 3 Seconds, Edema Skin: No rashes, No breakdown Neurological: Neuro grossly intact, Sensory exam intact to light touch and pain Psych/Mental Status: Normal Affect, Appropriate Microbiology Past 72 Hours 08/07/19 03:20 Sputum, Induced/Lukens Gram Stain - Final 08/07/19 03:20 Sputum, Induced/Lukens Respiratory Culture - Final Serratia marcescens Laboratory Results 08/09/19 07:06: APTT 39.4 H 08/09/19 07:06: WBC 13.3 H, RBC 4.30 L, Hgb 12.9 L, Hct 38.8 L, MCV 90.2, MCH 30.0, MCHC 33.2, RDW Std Deviation 42.8, RDW Coeff of Arturo 13.0, Plt Count 164, MPV 10.7, Immature Gran % (Auto) 0.800, Neut % (Auto) 80.8 H, Lymph % (Auto) 7.3 L, [place] % (Auto) 10.6 H, Eos % (Auto) 0.3, Baso % (Auto) 0.2, Absolute Neuts (auto) 10.7 H, Absolute Lymphs (auto) 0.97, Nucleated RBC % 0 08/09/19 07:06: Sodium 143, Potassium 4.1, Chloride 115 H, Carbon Dioxide 17.0 L , Anion Gap 11, BUN 42 H, Creatinine 2.14 H, Estim Creat Clear Calc 27.46, Est GFR (MDRD) Af Amer 39 L, Est GFR (MDRD) Non-Af 32 L, BUN/Creatinine Ratio 19.6, Glucose 135 H, Calcium 9.7 08/09/19 07:06: B-Natriuretic Peptide Pending Current Medications Acetaminophen (Tylenol) 650 mg PO Q6H PRN PRN PRN Reason: Pain Score 1-5/10 Last Admin: 08/08/19 23:46 Dose: 650 mg Documented by: Carvedilol (Coreg) 3.125 mg PO BID [facility] Last Admin: 08/09/19 08:26 Dose: 3.125 mg Documented by: Dextrose (D50w Syringe) 0 gm IV X1 PRN; Protocol PRN Reason: Hypoglycemia Glucagon () 1 mg IM .X1 PRN PRN Reason: Hypoglycemia Heparin Sodium (Porcine) (Heparin Na) 0 unit IV UD PRN; Protocol Last Admin: 08/09/19 08:21 Dose: 3,000 unit Documented by: Hydralazine HCl (Apresoline) 10 mg PO TID [facility] Last Admin: 08/09/19 05:56 Dose: 10 mg Documented by: Sodium Chloride () 250 mls @ 15 mls/hr IV .[id number] PRN PRN Reason: Saline Flush Heparin Sodium/Dextrose () 25,000 units in 250 mls @ 12 mls/hr IV .[id number] [facility]; Protocol Last Admin: 08/09/19 08:28 Dose: 1,000 units/hr, 10 mls/hr Documented by: Ceftriaxone Sodium (Rocephin) 1 gm in 50 mls @ 100 mls/hr IV Q24 OSMIN Stop: 08/14/19 10:01 Last Infusion: 08/09/19 11:06 Dose: Infused Documented by: Isosorbide Mononitrate (Imdur) 30 mg PO DAILY OSMIN Last Admin: 08/09/19 08:26 Dose: 30 mg Documented by: Lidocaine (Lidoderm Patch) 1 patch TOPICAL DAILY OSMIN; Protocol Last Admin: 08/09/19 01:03 Dose: 1 patch Documented by: Oxycodone HCl (Oxyir) 5 mg PO Q6H PRN PRN PRN Reason: Pain Score 6-10/10 Last Admin: 08/08/19 23:10 Dose: 5 mg Documented by: Sodium Chloride () 10 - 40 ml IV UD PRN PRN Reason: SALINE FLUSH Last Admin: 08/09/19 10:30 Dose: 10 ml Documented by: STROKE Vital Signs/Narrative: Vital Signs Resp Pulse Ox 08/09/19 08:56 34 H 92 Medical Necessity - Tobacco Use Smoking Status: Never smoker Tobacco Use: Non-smoker Assessment/Plan All Active Problems Cardiac arrest with ventricular fibrillation (Acute) LV dysfunction (Acute) Diabetes (Acute) Atrial flutter (Acute) 1. V. fib arrest/new onset a flutter/acute systolic CHF/acute respiratory failure/CALLIE -Creatinine increased from 1.45 to 2.31 today, his baseline is unknown -Hopefully creatinine can improve over the weekend so he can have a cardiac cath on Sunday by cardiology -Troponin peaked at 0.361 -Had a central line placed was able to discontinue the dopamine once the amiodarone drip was discontinued -extubated 08/07/2019 -Appreciate ICU and cardiology assistance -Continue with heparin drip -We will provide him with diuresis today as he is 12 L positive with significant rhonchi have to monitor his renal function closely as this is what is preventing him from undergoing a cath 2. Type 2 diabetes -He was not on any medications at home -Continue with Accu-Cheks and sliding scale insulin 3. BPH -Is on Flomax and doxazosin as an outpatient -Will hold DVT: Heparin drip Code Visit Inpatient E&M: 76135 Subs Hosp L2
[2019-08-09 14:56] LABS: Partial Thromboplast Time 51.5 Seconds (24.1-36.2)
[2019-08-09] MEDS: Labetalol 20 MG/4 ML Vial 10 MG IV (18:21)
[2019-08-09 22:22] LABS: Partial Thromboplast Time 48.5 Seconds (24.1-36.2)
[2019-08-10] VITALS (16 sets, daily range): BP systolic 130–176; BP diastolic 72–100; PULSE 59–83; RESP 17–19; TEMP 36.4–37.2; O2SAT 93–97
[2019-08-10] MEDS: amLODIPine 2.5 MG Tablet PO (03:02)
[2019-08-10 05:08] LABS: Absolute Lymphocyte Count 1.39 X10^3/uL (0.83-4.51); Absolute Neutrophil Count 7.5 X10^3/uL (2.0-7.7); Basophil# 0.02 X10^3/uL; Basophil% 0.2 % (0-1); Hematocrit 38.6 % (40-54); Hemoglobin 13.1 g/dL (13.0-16.5); Lymphocyte # 1.39 X10^3/ul (4.0); Lymphocyte % 13.4 % (19-41); Mean Corp Hgb Conc 33.9 g/dL (32-36); Mean Corpuscular Hgb 29.9 pg (27.0-32.0); Mean Corpuscular Volume 88.1 fL (80-94); Monocyte# 1.41 X10^3/uL; Monocyte% 13.6 % (0-10); NRBC Flagged by Analyzer 0 % (0-5); Neutrophil # 7.52 X10^3/uL (2.7-7.7); Neutrophil % 72.2 % (47-70); Platelet Count 173 K/mm3 (150-450); RBC Distribution Width CV 12.7 % (11.6-14.6); RBC Distribution Width SD 41.1 fl (35.1-43.9); Red Blood Count 4.38 M/mm3 (4.6-6.2); White Blood Count 10.4 K/mm3 (4.4-11.0)
[2019-08-10 05:28] LABS: Anion Gap 10 (5-15); BUN 42 mg/dL (7-18); BUN/Creat Ratio 20.1 RATIO (10-20); Calcium,Total 9.3 mg/dL (8.5-10.1); Chloride 107 mmol/L (98-107); Creatinine, Serum 2.09 mg/dL (0.70-1.30); EST Glomerular Filtration Rate 33 mL/min (>60); Est Glom Filt Rate - Afr Amer 40 mL/min (>60); Estimated Creatinine Clearance 28.11 ml/min; Glucose 140 mg/dL (74-106); Magnesium 2.1 mg/dL (1.6-2.6); Sodium Level 144 mmol/L (136-145)
[2019-08-10] MEDS: hydrALAZINE 10 MG Tablet PO ×3 (05:39→21:57)
[2019-08-10 05:40] LABS: Phosphorus 2.9 mg/dL (2.5-4.9)
[2019-08-10] MEDS: Potassium Chloride 10mEq/100mL 10 MEQ/100 ML IV.SOLN. 100 MEQ IV BOLUS ×2 (06:44→07:42)
--- NOTE | 2019-08-10 07:04 | PN_ITS ---
Patient Problems: Active and Suspected Problems Cardiac arrest with ventricular fibrillation (Acute) LV dysfunction (Acute) Diabetes (Acute) Atrial flutter (Acute) Subjective: Patient much improved compared to yesterday. Patient is interactive and appropriate. Patient has reported some left lower quadrant pain of the abdomen, but reportedly did have bowel movements yesterday. No chest pain is reported. - Physical Exam Vitals/I&O's: Vital Signs Temp Pulse Resp BP Pulse Ox 36.9 C 75 18 143/75 H 96 08/10/19 05:35 08/10/19 05:39 08/10/19 05:35 08/10/19 05:35 08/10/19 05:35 Oxygen Flow Rate (L/min) 1 Oxygen Delivery Method Room Air Weight: 89.5 kg Body Mass Index (BMI) 31.2 Finger Stick Blood Glucose 278 Intake and Output for Last 24 Hours 08/08/19 08/09/19 08/10/19 23:59 23:59 23:59 Intake Total 2725.87 / 2725.87 1435.23 / 1435.23 422.2 / 422.2 Output Total 202 / 202 1850 / 1850 650 / 650 Balance 2523.87 / 2523.87 -414.77 / -414.77 -227.8 / -227.8 General: Alert, Oriented x3, Cooperative, No apparent distress, Well developed, Well nourished, - - No conversational dyspnea. HEENT: Atraumatic, PERRLA, EOMI, Normocephalic, - - No scleral icterus or injection noted Oral: Moist Mucosa, No Gingival or Mucosal Lesions/ Ulcerations, - - Crowded posterior pharynx Neck: Supple, No JVD, No Nodes, Trachea Midline Lungs: No rhonchi, No wheeze, Diminished, Rales - Right base Cardiovascular: Regular rate, Normal S1, Normal S2, No murmurs, No rub noted, No Gallop Abdomen: Bowel Sounds Present, Soft, Non Tender, Non-Distended, Obese Extremities: No clubbing, No cyanosis, Edema - Trace lower extremity Skin: No rashes, No breakdown Musculoskeletal: No Tenderness to Palpation of Joints or Extremities Lymphatic: No Cervical, Supraclavicular, or Inguinal Adenopathy Neurological: Cranial nerves II-XII grossly intact, Neuro grossly intact, Motor Exam 5/5 strength throughout Psych/Mental Status: Alert and oriented to time, place, person, mood and affect Microbiology Past 72 Hours 08/07/19 03:20 Sputum, Induced/Lukens Gram Stain - Final 08/07/19 03:20 Sputum, Induced/Lukens Respiratory Culture - Final Serratia marcescens Laboratory Results 08/09/19 07:06: APTT 39.4 H 08/09/19 07:06: WBC 13.3 H, RBC 4.30 L, Hgb 12.9 L, Hct 38.8 L, MCV 90.2, MCH 30.0, MCHC 33.2, RDW Std Deviation 42.8, RDW Coeff of Arturo 13.0, Plt Count 164, MPV 10.7, Immature Gran % (Auto) 0.800, Neut % (Auto) 80.8 H, Lymph % (Auto) 7.3 L, [place] % (Auto) 10.6 H, Eos % (Auto) 0.3, Baso % (Auto) 0.2, Absolute Neuts (auto) 10.7 H, Absolute Lymphs (auto) 0.97, Nucleated RBC % 0 08/09/19 07:06: Sodium 143, Potassium 4.1, Chloride 115 H, Carbon Dioxide 17.0 L , Anion Gap 11, BUN 42 H, Creatinine 2.14 H, Estim Creat Clear Calc 27.46, Est GFR (MDRD) Af Amer 39 L, Est GFR (MDRD) Non-Af 32 L, BUN/Creatinine Ratio 19.6, Glucose 135 H, Calcium 9.7 08/09/19 07:06: B-Natriuretic Peptide Pending 08/09/19 14:30: APTT 51.5 H 08/09/19 22:00: APTT 48.5 H 08/10/19 04:59: WBC 10.4, RBC 4.38 L, Hgb 13.1, Hct 38.6 L, MCV 88.1, MCH 29.9, MCHC 33.9, RDW Std Deviation 41.1, RDW Coeff of Arturo 12.7, Plt Count 173, MPV 10.0, Immature Gran % (Auto) 0.600, Neut % (Auto) 72.2 H, Lymph % (Auto) 13.4 L, [place] % (Auto) 13.6 H, Eos % (Auto) 0.0, Baso % (Auto) 0.2, Absolute Neuts (auto) 7.5, Absolute Lymphs (auto) 1.39, Nucleated RBC % 0 08/10/19 04:59: Sodium 144, Potassium 3.0 L, Chloride 107, Carbon Dioxide 27.0, Anion Gap 10, BUN 42 H, Creatinine 2.09 H, Estim Creat Clear Calc 28.11, Est GFR (MDRD) Af Amer 40 L, Est GFR (MDRD) Non-Af 33 L, BUN/Creatinine Ratio 20.1 H, Glucose 140 H, Calcium 9.3, Magnesium 2.1 08/10/19 04:59: Phosphorus 2.9 08/10/19 04:59: APTT 74.0 H Clinical Impression(s) from Imaging Studies Chest X-Ray 08/09/19 11:16 IMPRESSION: Right lower lobe infiltrate likely due to pneumonia. Electronically Signed: Ptarick Petit MD at 15:44 EST Tel , Service support , Current Medications Acetaminophen (Tylenol) 650 mg PO Q6H PRN PRN PRN Reason: Pain Score 1-5/10 Last Admin: 08/08/19 23:46 Dose: 650 mg Documented by: Amlodipine Besylate (Norvasc) 2.5 mg PO DAILY [facility] Last Admin: 08/10/19 03:02 Dose: 2.5 mg Documented by: Dextrose (D50w Syringe) 0 gm IV X1 PRN; Protocol PRN Reason: Hypoglycemia Furosemide (Lasix) 20 mg PO X1 ONE Stop: 08/10/19 07:04 Glucagon () 1 mg IM .X1 PRN PRN Reason: Hypoglycemia Heparin Sodium (Porcine) (Heparin Na) 0 unit IV UD PRN; Protocol Last Admin: 08/09/19 22:54 Dose: 1,000 unit Documented by: Hydralazine HCl (Apresoline) 10 mg PO TID [facility] Last Admin: 08/10/19 05:39 Dose: 10 mg Documented by: Hydralazine HCl (Apresoline Iv) 10 mg IV Q6H PRN PRN PRN Reason: HYPERTENSION Sodium Chloride () 250 mls @ 15 mls/hr IV .[id number] PRN PRN Reason: Saline Flush Heparin Sodium/Dextrose () 25,000 units in 250 mls @ 12 mls/hr IV .[id number] [facility]; Protocol Last Titration: 08/10/19 04:59 Dose: 1,200 units/hr, 12 mls/hr Documented by: Ceftriaxone Sodium (Rocephin) 1 gm in 50 mls @ 100 mls/hr IV Q24 [facility] Stop: 08/14/19 10:01 Last Infusion: 08/09/19 11:06 Dose: Infused Documented by: Azithromycin 500 mg/ Dextrose 255 mls @ 250 mls/hr IV Q24 [facility] Last Infusion: 08/09/19 20:13 Dose: Infused Documented by: Potassium Chloride () 10 meq in 100 mls @ 100 mls/hr IV BOLUS Q1H [facility] Stop: 08/10/19 08:14 Last Admin: 08/10/19 06:44 Dose: 100 mls/hr Documented by: Isosorbide Mononitrate (Imdur) 30 mg PO DAILY [facility] Last Admin: 08/09/19 08:26 Dose: 30 mg Documented by: Lidocaine (Lidoderm Patch) 1 patch TOPICAL DAILY [facility]; Protocol Last Admin: 08/09/19 01:03 Dose: 1 patch Documented by: Oxycodone HCl (Oxyir) 5 mg PO Q6H PRN PRN PRN Reason: Pain Score 6-10/10 Last Admin: 08/08/19 23:10 Dose: 5 mg Documented by: Sodium Chloride () 10 - 40 ml IV UD PRN PRN Reason: SALINE FLUSH Last Admin: 08/09/19 18:22 Dose: 10 ml Documented by: Medical Necessity - Tobacco Use Smoking Status: Never smoker Tobacco Use: Non-smoker Assessment/Plan All Active Problems Cardiac arrest with ventricular fibrillation (Acute) LV dysfunction (Acute) Diabetes (Acute) Atrial flutter (Acute) RECOMMENDATIONS: 1. Wean oxygen as tolerated. 2. Treat Serratia for 5 days given delirium 3. Delirium protocol 4. Heart catheterization timing per cardiology 5. Replete potassium. P.o. Lasix. IMPRESSIONS: 1. V. fib arrest/hypokalemia Patient is mentating appropriately. Patient has had ROSC and appears to be doing okay at this time. Transient hypotension appears to be secondary to sedative medications and bradycardia. Cardiology is currently following. Patient appears to be doing okay from a cardiac standpoint. Anticipate possible heart catheterization on Sunday 2. New onset a flutter Patient reportedly does not have a history of A. fib. Patient has not been treated here previously. Patient does have a depressed EF with atrial enl argement. Patient currently on p.o. amiodarone. Patient is fully anticoagulated. Patient's heart rate is well controlled. 3. Systolic congestive heart failure Unclear chronicity. Patient does not appear to follow with physicians regularly. Patient does have an EF of 30 to 35%. Unclear if this is secondary to acute event. If chronic, this would predispose patient to the V. fib arrest. Cardiology is currently following. Patient's blood pressure is tolerating beta-blockers at this time. Would defer to cardiology on possible catheterization timing. Patient's creatinine appears to be stabilizing to improving with diuretic therapy. This would suggest volume overload may be leading to decreased [place] forces. We will give an additional dose of Lasix today. 4. Acute respiratory failure Multifactorial etiology. Patient is growing Serratia in the sputum sample. Doubt true pneumonia, but given patient's delirium, treatment would be indicated. Patient will be placed on ceftriaxone for 5 days. Continue to wean oxygen as tolerated. Significant improvement in mentation following antibiotic initiation. 5. BPH/advanced age/poor medical history Complicates care, management, recovery and prognosis. [place] in place. Monitor urine output. Poor historian. Patient's baseline creatinine is 1.14 per outside laboratory values. Patient also has an elevated glucose indicating diabetes mellitus. This is not known by the family. 6. Acute kidney injury Unclear baseline, but patient had increased up to 2.42 on creatinine and urine output is improving. Continue to support hemodynamics. Patient responded well to diuretic therapy yesterday Code Visit Inpatient E&M: 38268 Subs Hosp L2
[2019-08-10] MEDS: HEPARIN/D5w 25,000 UNITS 25,000 UNITS/250 ML IV.SOLN. 12 UNITS IV (07:43)
[2019-08-10] MEDS: Furosemide 20 MG Tablet PO (07:53)
[2019-08-10] MEDS: Lidocaine 5% Patch 1 PATCH TOPICAL (07:54)
[2019-08-10] MEDS: Isosorbide Mononitrate 30 MG Tablet PO (08:03)
[2019-08-10] MEDS: Acetaminophen 325 MG Tablet 650 MG PO (09:04)
[2019-08-10] MEDS: Ceftriaxone 1 GM/50 ML BAG IV (09:05)
--- NOTE | 2019-08-10 10:04 | PCM.PN.CARD ---
Subjectve: The patient reports no significant complaints. Specifically, denies any chest pain or shortness of breath; much more lucid this morning, lying flat in bed. Chest x-ray, which was performed yesterday, showed evidence of right lower lobe pneumonia. BNP is still pending. Objective: Vital Signs Temp Pulse Resp BP Pulse Ox 98.9 F 72 19 H 130/72 H 94 08/10/19 07:55 08/10/19 07:55 08/10/19 07:55 08/10/19 07:55 08/10/19 07:55 Oxygen Flow Rate (L/min) 1 Oxygen Delivery Method Room Air Weight: 89.5 kg Body Mass Index (BMI) 31.2 Finger Stick Blood Glucose 278 Intake and Output for Last 24 Hours 08/08/19 08/09/19 08/10/19 23:59 23:59 23:59 Intake Total 2725.87 / 2725.87 1435.23 / 1435.23 544.57 / 544.57 Output Total 202 / 202 1850 / 1850 650 / 650 Balance 2523.87 / 2523.87 -414.77 / -414.77 -105.43 / -105.43 General: Awake, Alert, Oriented x 3, No Acute Distress HEENT: PERRL, EOMI, Sclera Non Icteric Neck: Supple, Good ROM, No Lymph Node Enlargement Lungs: Diminished Right Base Cardiovascular: Irregular Rhythm Vascular: No Carotid Bruits, Normal Femoral Pulses, Normal Radial Pulses, Normal Dorsalis Pedal Pulse, Normal Posterior Tibial Pulses Abdomen: Bowel Sounds Present, Soft, Non Tender, No HSM, No Organomegaly Extremities: No Cyanosis, No Clubbing, No edema Neurological: No Focal Motor or Sensory Deficit Psych/Mental Status: Appropriate, Normal Affect 08/09/19 14:30: APTT 51.5 H 08/09/19 22:00: APTT 48.5 H 08/10/19 04:59: WBC 10.4, RBC 4.38 L, Hgb 13.1, Hct 38.6 L, MCV 88.1, MCH 29.9, MCHC 33.9, Plt Count 173, MPV 10.0, Immature Gran % (Auto) 0.600, Neut % (Auto) 72.2 H, Lymph % (Auto) 13.4 L, [place] % (Auto) 13.6 H, Eos % (Auto) 0.0, Baso % (Auto) 0.2, Absolute Neuts (auto) 7.5, Nucleated RBC % 0 08/10/19 04:59: Sodium 144, Potassium 3.0 L, Chloride 107, Carbon Dioxide 27.0, Anion Gap 10, BUN 42 H, Creatinine 2.09 H, Est GFR (MDRD) Af Amer 40 L, Est GFR (MDRD) Non-Af 33 L, BUN/Creatinine Ratio 20.1 H, Glucose 140 H, Calcium 9.3, Magnesium 2.1 08/10/19 04:59: Phosphorus 2.9 08/10/19 04:59: APTT 74.0 H Rhythm: EKG: ECHO: Stress Test: Cardiac Cath: PCI: CT Surgery: Holter monitor: EPS: PPM: CXR: Chest CT Scan: Medical Necessity - Tobacco Use Smoking Status: Never smoker Tobacco Use: Non-smoker Assessment/Plan 1. Status post out of hospital ventricular fibrillation cardiac arrest. Clinically, doing better. No malignant ventricular arrhythmias on telemetry. Cardiac catheterization before discharge, time to be determined by recovery from pneumonia and renal recovery. 2. New onset congestive heart failure with estimated left ventricular ejection fraction in the range of 30 to 35%. Respiratory distress has resolved. Beta-blockers were stopped, due to concerns for bronchospasm. I would hold off that for the time being. On afterload reducers with nitrates and hydralazine. 3. Atrial fibrillation of unknown duration. Rate appears to be well controlled. On heparin drip. 4. Acute on chronic renal insufficiency. Creatinine is trending down. 5. Hypoxic encephalopathy, mental status is much improved this morning 6. Right lower lobe pneumonia, pulmonary on board. Code Visit Inpatient E&M: 42183 Subs Hosp L3
--- NOTE | 2019-08-10 10:56 | PCM.PN.HOSP ---
Patient Problems: Active and Suspected Problems Cardiac arrest with ventricular fibrillation (Acute) LV dysfunction (Acute) Diabetes (Acute) Atrial flutter (Acute) Subjective: Much more lucid today, breathing better, no significant issues overnight Vitals/I&O's: Vital Signs Temp Pulse Resp BP Pulse Ox 98.9 F 72 19 H 130/72 H 94 08/10/19 07:55 08/10/19 07:55 08/10/19 07:55 08/10/19 07:55 08/10/19 07:55 Oxygen Flow Rate (L/min) 1 Oxygen Delivery Method Room Air Weight: 197 lb 5.019 oz Body Mass Index (BMI) 31.2 Finger Stick Blood Glucose 278 Intake and Output for Last 24 Hours 08/08/19 08/09/19 08/10/19 23:59 23:59 23:59 Intake Total 2725.87 / 2725.87 1435.23 / 1435.23 694.57 / 694.57 Output Total 202 / 202 1850 / 1850 650 / 650 Balance 2523.87 / 2523.87 -414.77 / -414.77 44.57 / 44.57 General: Alert, Cooperative, No apparent distress HEENT: Atraumatic, PERRLA, EOMI, Normocephalic Oral: Moist Mucosa Neck: Supple, No JVD Lungs: No wheezes, no rhonchi, diminished, slight Rales Cardiovascular: Regular rate, Regular Rhythm, Normal S1, Normal S2, No murmurs Abdomen: Soft, Non Tender, Non-Distended, No Hepato-splenomegaly, Obese Extremities: Capillary Refill Less than 3 Seconds, Edema Skin: No rashes, No breakdown Neurological: Neuro grossly intact, Sensory exam intact to light touch and pain Psych/Mental Status: Normal Affect, Appropriate Microbiology Past 72 Hours 08/07/19 03:20 Sputum, Induced/Lukens Gram Stain - Final 08/07/19 03:20 Sputum, Induced/Lukens Respiratory Culture - Final Serratia marcescens Laboratory Results 08/09/19 07:06: B-Natriuretic Peptide Pending 08/09/19 14:30: APTT 51.5 H 08/09/19 22:00: APTT 48.5 H 08/10/19 04:59: WBC 10.4, RBC 4.38 L, Hgb 13.1, Hct 38.6 L, MCV 88.1, MCH 29.9, MCHC 33.9, RDW Std Deviation 41.1, RDW Coeff of Arturo 12.7, Plt Count 173, MPV 10.0, Immature Gran % (Auto) 0.600, Neut % (Auto) 72.2 H, Lymph % (Auto) 13.4 L, [place] % (Auto) 13.6 H, Eos % (Auto) 0.0, Baso % (Auto) 0.2, Absolute Neuts (auto) 7.5, Absolute Lymphs (auto) 1.39, Nucleated RBC % 0 08/10/19 04:59: Sodium 144, Potassium 3.0 L, Chloride 107, Carbon Dioxide 27.0, Anion Gap 10, BUN 42 H, Creatinine 2.09 H, Estim Creat Clear Calc 28.11, Est GFR (MDRD) Af Amer 40 L, Est GFR (MDRD) Non-Af 33 L, BUN/Creatinine Ratio 20.1 H, Glucose 140 H, Calcium 9.3, Magnesium 2.1 08/10/19 04:59: Phosphorus 2.9 08/10/19 04:59: APTT 74.0 H Current Medications Acetaminophen (Tylenol) 650 mg PO Q6H PRN PRN PRN Reason: Pain Score 1-5/10 Last Admin: 08/10/19 09:04 Dose: 650 mg Documented by: Amlodipine Besylate (Norvasc) 2.5 mg PO DAILY [facility] Last Admin: 08/10/19 03:02 Dose: 2.5 mg Documented by: Dextrose (D50w Syringe) 0 gm IV X1 PRN; Protocol PRN Reason: Hypoglycemia Glucagon () 1 mg IM .X1 PRN PRN Reason: Hypoglycemia Heparin Sodium (Porcine) (Heparin Na) 0 unit IV UD PRN; Protocol Last Admin: 08/09/19 22:54 Dose: 1,000 unit Documented by: Hydralazine HCl (Apresoline) 10 mg PO TID [facility] Last Admin: 08/10/19 05:39 Dose: 10 mg Documented by: Hydralazine HCl (Apresoline Iv) 10 mg IV Q6H PRN PRN PRN Reason: HYPERTENSION Sodium Chloride () 250 mls @ 15 mls/hr IV .[id number] PRN PRN Reason: Saline Flush Heparin Sodium/Dextrose () 25,000 units in 250 mls @ 12 mls/hr IV .[id number] [facility]; Protocol Last Admin: 08/10/19 07:43 Dose: 1,200 units/hr, 12 mls/hr Documented by: Ceftriaxone Sodium (Rocephin) 1 gm in 50 mls @ 100 mls/hr IV Q24 [facility] Stop: 08/14/19 10:01 Last Infusion: 08/10/19 10:08 Dose: Infused Documented by: Azithromycin 500 mg/ Dextrose 255 mls @ 250 mls/hr IV Q24 [facility] Last Infusion: 08/09/19 20:13 Dose: Infused Documented by: Isosorbide Mononitrate (Imdur) 30 mg PO DAILY [facility] Last Admin: 08/10/19 08:03 Dose: 30 mg Documented by: Lidocaine (Lidoderm Patch) 1 patch TOPICAL DAILY [facility]; Protocol Last Admin: 08/10/19 07:54 Dose: 1 patch Documented by: Oxycodone HCl (Oxyir) 5 mg PO Q6H PRN PRN PRN Reason: Pain Score 6-10/10 Last Admin: 08/08/19 23:10 Dose: 5 mg Documented by: Sodium Chloride () 10 - 40 ml IV UD PRN PRN Reason: SALINE FLUSH Last Admin: 08/09/19 18:22 Dose: 10 ml Documented by: STROKE Vital Signs/Narrative: Vital Signs Temp Pulse Resp BP Pulse Ox 08/10/19 07:55 98.9 F 72 19 H 130/72 H 94 08/10/19 07:48 94 08/10/19 07:15 66 Medical Necessity - Tobacco Use Smoking Status: Never smoker Tobacco Use: Non-smoker Assessment/Plan All Active Problems Cardiac arrest with ventricular fibrillation (Acute) LV dysfunction (Acute) Diabetes (Acute) Atrial flutter (Acute) 1. V. fib arrest/new onset a flutter/acute systolic CHF/acute respiratory failure/CALLIE/possible pneumonia -Creatinine increased from 1.45 to 2.42 down to 2.09 -Troponin peaked at 0.361 -Had a central line placed was able to discontinue the dopamine once the amiodarone drip was discontinued -extubated 08/07/2019 -Appreciate ICU and cardiology assistance, plan will be for cath on Sunday -Continue with heparin drip -He received an oral dose of Lasix today, he is much improved from respiratory status, therefore we will continue to monitor -Appreciate pulmonary input, was started on Rocephin and azithromycin was added given the findings on his chest x-ray of infiltrates 2. Type 2 diabetes -He was not on any medications at home -Continue with Accu-Cheks and sliding scale insulin 3. BPH -Is on Flomax and doxazosin as an outpatient -Will hold DVT: Heparin drip Code Visit Inpatient E&M: [id number] Subs Hosp L2
[2019-08-10 11:07] LABS: Partial Thromboplast Time 52.5 Seconds (24.1-36.2)
[2019-08-10] MEDS: Heparin Injection (Vial) 5,000 UNIT/ML VIAL IV (11:44)
[2019-08-10] MEDS: 0.9% Saline Lock 10 ML Syringe IV (11:45)
[2019-08-10] MEDS: Clopidogrel Bisulfate 300 MG Tablet PO (14:08)
[2019-08-10] MEDS: Aspirin 325 MG Tablet PO (14:08)
[2019-08-10 18:06] LABS: Partial Thromboplast Time 78.1 Seconds (24.1-36.2)
[2019-08-11] VITALS (29 sets, daily range): BP systolic 121–193; BP diastolic 67–103; PULSE 61–84; RESP 16–22; TEMP 36.9–37.3; O2SAT 95–100; BMI 30.4
[2019-08-11 00:24] LABS: Partial Thromboplast Time 65.2 Seconds (24.1-36.2)
[2019-08-11] MEDS: HEPARIN/D5w 25,000 UNITS 25,000 UNITS/250 ML IV.SOLN. 13 UNITS IV (04:16)
[2019-08-11] MEDS: Aspirin 81 MG TAB.CHEW PO (05:26)
[2019-08-11] MEDS: hydrALAZINE 10 MG Tablet PO ×3 (05:26→21:50)
[2019-08-11] MEDS: amLODIPine 2.5 MG Tablet PO (05:26)
[2019-08-11] MEDS: Clopidogrel Bisulfate 75 MG Tablet PO (05:27)
[2019-08-11] MEDS: Isosorbide Mononitrate 30 MG Tablet PO (05:27)
--- NOTE | 2019-08-11 05:55 | EKG12_ITS ---
Test Reason : CP Blood Pressure : / mmHG Vent. Rate : 076 BPM Atrial Rate : 061 BPM P-R Int : 000 ms QRS Dur : 112 ms QT Int : 374 ms P-R-T Axes : 000 012 -21 degrees QTc Int : 420 ms Atrial Fibrillation with CVR Low voltage QRS Septal infarct (cited on or before 05-AUG-2019) Abnormal ECG When compared with ECG of 05-AUG-2019 14:08, Current undetermined rhythm precludes rhythm comparison, needs review Nonspecific T wave abnormality has replaced inverted T waves in Lateral leads QT has shortened Confirmed by MALCOM MORAN ([id number]), book editor HEMA BEVERLY ([id number]) on 08/19/2019 10:13:15 AM Referred By: Venkata Gann Confirmed By:MALCOM MORAN
[2019-08-11 05:57] LABS: Anion Gap 8 (5-15); BUN 39 mg/dL (7-18); BUN/Creat Ratio 21.4 RATIO (10-20); Calcium,Total 9.3 mg/dL (8.5-10.1); Chloride 107 mmol/L (98-107); Creatinine, Serum 1.82 mg/dL (0.70-1.30); EST Glomerular Filtration Rate 39 mL/min (>60); Est Glom Filt Rate - Afr Amer 47 mL/min (>60); Estimated Creatinine Clearance 32.28 ml/min; Glucose 124 mg/dL (74-106); Potassium 2.8 mmol/L (3.5-5.1); Sodium Level 144 mmol/L (136-145)
[2019-08-11 07:05] LABS: Magnesium 2.1 mg/dL (1.6-2.6)
--- NOTE | 2019-08-11 07:22 | PCM.PN.PUL ---
Patient Problems: Active and Suspected Problems Cardiac arrest with ventricular fibrillation (Acute) LV dysfunction (Acute) Diabetes (Acute) Atrial flutter (Acute) Subjective: The patient was seen and examined at the bedside this morning. Events from the last 24 hours have been reviewed. The patient is currently afebrile, hemodynamically stable and maintaining appropriate oxygen saturations on room air. The patient is to be taken for cardiac catheterization this morning. Objective: The patient's most recent lab work, culture data and imaging studies have all been personally reviewed. - Physical Exam Vitals/I&O's: Vital Signs Temp Pulse Resp BP Pulse Ox 98.6 F 73 18 152/84 H 95 08/11/19 06:51 08/11/19 06:52 08/11/19 06:51 08/11/19 06:51 08/11/19 06:51 Oxygen Flow Rate (L/min) 1 Oxygen Delivery Method Room Air Weight: 194 lb 3.636 oz Body Mass Index (BMI) 31.2 Finger Stick Blood Glucose 278 Intake and Output for Last 24 Hours 08/09/19 08/10/19 08/11/19 23:59 23:59 23:59 Intake Total 1435.23 / 1435.23 2231.07 / 2231.07 426.03 / 426.03 Output Total 1850 / 1850 1050 / 1050 500 / 500 Balance -414.77 / -414.77 1181.07 / 1181.07 -73.97 / -73.97 General: Alert, Cooperative, No apparent distress HEENT: Atraumatic, PERRLA, Normocephalic Oral: No Gingival or Mucosal Lesions/ Ulcerations Neck: Supple, No Nodes, Trachea Midline Lungs: No rhonchi, No wheeze, No rales, Diminished Cardiovascular: Regular rate, Regular Rhythm, Normal S1, Normal S2 Abdomen: Bowel Sounds Present, Soft, Non Tender, Obese Extremities: No clubbing, No cyanosis, Edema Skin: No breakdown Musculoskeletal: No Tenderness to Palpation of Joints or Extremities, No Muscle Wasting Lymphatic: No Cervical, Supraclavicular, or Inguinal Adenopathy Neurological: Neuro grossly intact Psych/Mental Status: Normal Affect, Appropriate Labs (Last 48 Hours) 08/09/19 08/09/19 08/09/19 07:06 07:06 07:06 WBC RBC Hgb Hct MCV MCH MCHC RDW Std Deviation RDW Coeff of Arturo Plt Count MPV Immature Gran % (Auto) Neut % (Auto) Lymph % (Auto) Calloway % (Auto) Eos % (Auto) Baso % (Auto) Absolute Neuts (auto) Absolute Lymphs (auto) Nucleated RBC % APTT 39.4 H Sodium 143 Potassium 4.1 Chloride 115 H Carbon Dioxide 17.0 L Anion Gap 11 BUN 42 H Creatinine 2.14 H Estim Creat Clear Calc 27.46 Est GFR (MDRD) Af Amer 39 L Est GFR (MDRD) Non-Af 32 L BUN/Creatinine Ratio 19.6 Glucose 135 H Calcium 9.7 Phosphorus Magnesium B-Natriuretic Peptide Pending 08/09/19 08/09/19 08/10/19 14:30 22:00 04:59 WBC 10.4 RBC 4.38 L Hgb 13.1 Hct 38.6 L MCV 88.1 MCH 29.9 MCHC 33.9 RDW Std Deviation 41.1 RDW Coeff of Arturo 12.7 Plt Count 173 MPV 10.0 Immature Gran % (Auto) 0.600 Neut % (Auto) 72.2 H Lymph % (Auto) 13.4 L Calloway % (Auto) 13.6 H Eos % (Auto) 0.0 Baso % (Auto) 0.2 Absolute Neuts (auto) 7.5 Absolute Lymphs (auto) 1.39 Nucleated RBC % 0 APTT 51.5 H 48.5 H Sodium Potassium Chloride Carbon Dioxide Anion Gap BUN Creatinine Estim Creat Clear Calc Est GFR (MDRD) Af Amer Est GFR (MDRD) Non-Af BUN/Creatinine Ratio Glucose Calcium Phosphorus Magnesium B-Natriuretic Peptide 08/10/19 08/10/19 08/10/19 04:59 04:59 04:59 WBC RBC Hgb Hct MCV MCH MCHC RDW Std Deviation RDW Coeff of Arturo Plt Count MPV Immature Gran % (Auto) Neut % (Auto) Lymph % (Auto) Calloway % (Auto) Eos % (Auto) Baso % (Auto) Absolute Neuts (auto) Absolute Lymphs (auto) Nucleated RBC % APTT 74.0 H Sodium 144 Potassium 3.0 L Chloride 107 Carbon Dioxide 27.0 Anion Gap 10 BUN 42 H Creatinine 2.09 H Estim Creat Clear Calc 28.11 Est GFR (MDRD) Af Amer 40 L Est GFR (MDRD) Non-Af 33 L BUN/Creatinine Ratio 20.1 H Glucose 140 H Calcium 9.3 Phosphorus 2.9 Magnesium 2.1 B-Natriuretic Peptide 08/10/19 08/10/19 08/10/19 10:38 17:40 23:54 WBC RBC Hgb Hct MCV MCH MCHC RDW Std Deviation RDW Coeff of Arturo Plt Count MPV Immature Gran % (Auto) Neut % (Auto) Lymph % (Auto) Calloway % (Auto) Eos % (Auto) Baso % (Auto) Absolute Neuts (auto) Absolute Lymphs (auto) Nucleated RBC % APTT 52.5 H 78.1 H 65.2 H Sodium Potassium Chloride Carbon Dioxide Anion Gap BUN Creatinine Estim Creat Clear Calc Est GFR (MDRD) Af Amer Est GFR (MDRD) Non-Af BUN/Creatinine Ratio Glucose Calcium Phosphorus Magnesium B-Natriuretic Peptide 08/11/19 08/11/19 08/11/19 04:55 04:55 04:55 WBC RBC Hgb Hct MCV MCH MCHC RDW Std Deviation RDW Coeff of Arturo Plt Count MPV Immature Gran % (Auto) Neut % (Auto) Lymph % (Auto) Calloway % (Auto) Eos % (Auto) Baso % (Auto) Absolute Neuts (auto) Absolute Lymphs (auto) Nucleated RBC % APTT 67.0 H Sodium 144 Potassium 2.8 L Chloride 107 Carbon Dioxide 29.0 Anion Gap 8 BUN 39 H Creatinine 1.82 H Estim Creat Clear Calc 32.28 Est GFR (MDRD) Af Amer 47 L Est GFR (MDRD) Non-Af 39 L BUN/Creatinine Ratio 21.4 H Glucose 124 H Calcium 9.3 Phosphorus Magnesium 2.1 B-Natriuretic Peptide Microbiology 08/07/19 03:20 Sputum, Induced/Lukens Gram Stain - Final 08/07/19 03:20 Sputum, Induced/Lukens Respiratory Culture - Final Serratia marcescens Clinical Impression(s) from Imaging Studies Chest X-Ray 08/05/19 14:08 IMPRESSION: Gastric congestion. The tip of the endotracheal tube is at the level of the [place]. This should be pulled back 3 cm. Electronically Signed: Jerardo Aguillon, at 14:45 EST , Service support , Brain CT 08/05/19 14:17 IMPRESSION: Chronic involutional changes of the brain. N.B. : The above information has been verbally conveyed by Jerardo Aguillon to Andres Garza on 08/05/2019 15:48:24 (ET). Electronically Signed: Jerardo Aguillon, at 15:51 EST , Service support , ADDENDUM: 08/05/19 1558 IMPRESSION: Chronic involutional changes of the brain. N.B. : The above information has been verbally conveyed by Jerardo Aguillon to Andres Garza on 08/05/2019 15:48:24 (ET). Electronically Signed: Jerardo Aguillon, at 15:51 EST , Service support , Chest X-Ray 08/05/19 17:40 IMPRESSION: Endotracheal tube tip in the mid thoracic trachea. Electronically Signed: Reynold Gómez, at 18:56 EST Tel , Service support , Chest X-Ray 08/06/19 01:27 IMPRESSION: Right-sided central venous catheter tip at the cavoatrial junction. Mild retrocardiac atelectasis versus infiltrate. at 0210 Reported and signed by: Darlene Carlos MD Electronically Signed: Darlene Carlos MD at 2:10 EST Tel , Service support , KUB X-Ray 08/06/19 06:54 IMPRESSION: Nonspecific bowel gas pattern. Electronically Signed: Jerardo Aguillon, at 10:37 EST , Service support , Chest X-Ray 08/09/19 11:16 IMPRESSION: Right lower lobe infiltrate likely due to pneumonia. Electronically Signed: Patrick Petit MD at 15:44 EST Tel , Service support , Current Medications Acetaminophen (Tylenol) 650 mg PO Q6H PRN PRN PRN Reason: Pain Score 1-5/10 Last Admin: 08/10/19 09:04 Dose: 650 mg Documented by: Amlodipine Besylate (Norvasc) 2.5 mg PO DAILY [facility] Last Admin: 08/11/19 05:26 Dose: 2.5 mg Documented by: Aspirin (Aspirin, Baby) 81 mg PO DAILY@0800 [facility] Last Admin: 08/11/19 05:26 Dose: 81 mg Documented by: Clopidogrel Bisulfate (Plavix) 75 mg PO DAILY [facility] Last Admin: 08/11/19 05:27 Dose: 75 mg Documented by: Dextrose (D50w Syringe) 0 gm IV X1 PRN; Protocol PRN Reason: Hypoglycemia Glucagon () 1 mg IM .X1 PRN PRN Reason: Hypoglycemia Heparin Sodium (Porcine) (Heparin Na) 0 unit IV UD PRN; Protocol Last Admin: 08/10/19 11:44 Dose: 1,000 unit Documented by: Hydralazine HCl (Apresoline) 10 mg PO TID [facility] Last Admin: 08/11/19 05:26 Dose: 10 mg Documented by: Hydralazine HCl (Apresoline Iv) 10 mg IV Q6H PRN PRN PRN Reason: HYPERTENSION Sodium Chloride () 250 mls @ 15 mls/hr IV .[id number] PRN PRN Reason: Saline Flush Heparin Sodium/Dextrose () 25,000 units in 250 mls @ 12 mls/hr IV .[id number] [facility]; Protocol Last Titration: 08/11/19 06:00 Dose: 0 units/hr, 0 mls/hr Documented by: Ceftriaxone Sodium (Rocephin) 1 gm in 50 mls @ 100 mls/hr IV Q24 [facility] Stop: 08/14/19 10:01 Last Infusion: 08/10/19 10:08 Dose: Infused Documented by: Azithromycin 500 mg/ Dextrose 255 mls @ 250 mls/hr IV Q24 [facility] Last Infusion: 08/10/19 12:15 Dose: Infused Documented by: Potassium Chloride 40 meq/ (Sodium Chloride) 120 mls @ 100 mls/hr IV BOLUS X1 ONE Stop: 08/11/19 07:31 Last Admin: 08/11/19 06:46 Dose: 100 mls/hr Documented by: Isosorbide Mononitrate (Imdur) 30 mg PO DAILY [facility] Last Admin: 08/11/19 05:27 Dose: 30 mg Documented by: Lidocaine (Lidoderm Patch) 1 patch TOPICAL DAILY [facility]; Protocol Last Admin: 08/10/19 07:54 Dose: 1 patch Documented by: Oxycodone HCl (Oxyir) 5 mg PO Q6H PRN PRN PRN Reason: Pain Score 6-10/10 Last Admin: 08/08/19 23:10 Dose: 5 mg Documented by: Sodium Chloride () 10 - 40 ml IV UD PRN PRN Reason: SALINE FLUSH Last Admin: 08/10/19 11:45 Dose: 10 ml Documented by: Medical Necessity - Tobacco Use Smoking Status: Never smoker Tobacco Use: Non-smoker Assessment/Plan All Active Problems Cardiac arrest with ventricular fibrillation (Acute) LV dysfunction (Acute) Diabetes (Acute) Atrial flutter (Acute) RECOMMENDATIONS: 1. Plans for cardiac catheterization today. 2. Potassium repletion. 3. Continue antibiotics x5 days. 4. Encourage incentive spirometer use and mobilize patient as tolerated. IMPRESSIONS: 1. V. fib arrest/hypokalemia The patient has been stabilized from a medical perspective. Cardiology is currently following with plans for cardiac catheterization at some point. Will defer primary medical management to cardiology accordingly. 2. New onset a flutter Continue current medical management with heparin and beta-blockade. 3. Systolic congestive heart failure Echocardiogram did reveal a depressed ejection fraction to 35%. Continue current medical management as noted above. 4. Acute respiratory failure Resolved at this time. The patient was able to be extubated on the morning of 08/07. He is currently maintaining appropriate oxygen saturations on room air. Continue to encourage incentive parameter use and mobilize patient as tolerated. 5. Acute kidney injury Improving. Likely secondary to perturbations and hemodynamics in the setting of #1. The patient remains hemodynamically stable. 6. BPH/advanced age/poor medical history Complicates care, management, recovery and prognosis. Okay to resume outpatient medications. This note was generated with [employer] dictation software. It may contain incorrect words, spelling, and punctuation that were not noted in checking the note before signing. Code Visit Inpatient E&M: 78851 Subs Hosp L2
--- NOTE | 2019-08-11 09:15 | PN_ITS ---
Patient Problems: Active and Suspected Problems Cardiac arrest with ventricular fibrillation (Acute) LV dysfunction (Acute) Diabetes (Acute) Atrial flutter (Acute) Subjective: Seen and examined. Had PCI in am and transferred to ICU. 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 BP high. 179/88 Vitals/I&O's: Vital Signs Temp Pulse Resp BP Pulse Ox 98.6 F 73 18 152/84 H 95 08/11/19 06:51 08/11/19 06:52 08/11/19 06:51 08/11/19 06:51 08/11/19 06:51 Oxygen Flow Rate (L/min) 1 Oxygen Delivery Method Room Air Weight: 194 lb 3.636 oz Body Mass Index (BMI) 31.2 Finger Stick Blood Glucose 278 Intake and Output for Last 24 Hours 08/09/19 08/10/19 08/11/19 23:59 23:59 23:59 Intake Total 1435.23 / 1435.23 2231.07 / 2231.07 546.03 / 546.03 Output Total 1850 / 1850 1050 / 1050 500 / 500 Balance -414.77 / -414.77 1181.07 / 1181.07 46.03 / 46.03 General: Alert, Oriented x3, Cooperative HEENT: Atraumatic, PERRLA, EOMI, Normocephalic Neck: Supple, No JVD, Negative Carotid Bruits Lungs: Clear to auscultation, No rhonchi, No wheeze, No rales, Diminished Cardiovascular: Normal S1, Normal S2, No murmurs, Irregular Rate Abdomen: Bowel Sounds Present, Soft, Non Tender, Non-Distended Extremities: No edema, Capillary Refill Less than 3 Seconds Skin: No rashes, No breakdown, - - right groin cath access Musculoskeletal: No Tenderness to Palpation of Joints or Extremities, Arthritic Changes Neurological: Cranial nerves II-XII grossly intact Psych/Mental Status: Normal Affect, Appropriate Microbiology Past 72 Hours 08/07/19 03:20 Sputum, Induced/Lukens Gram Stain - Final 08/07/19 03:20 Sputum, Induced/Lukens Respiratory Culture - Final Serratia marcescens Laboratory Results 08/10/19 10:38: APTT 52.5 H 08/10/19 17:40: APTT 78.1 H 08/10/19 23:54: APTT 65.2 H 08/11/19 04:55: Sodium 144, Potassium 2.8 L, Chloride 107, Carbon Dioxide 29.0, Anion Gap 8, BUN 39 H, Creatinine 1.82 H, Estim Creat Clear Calc 32.28, Est GFR (MDRD) Af Amer 47 L, Est GFR (MDRD) Non-Af 39 L, BUN/Creatinine Ratio 21.4 H, Glucose 124 H, Calcium 9.3 08/11/19 04:55: APTT 67.0 H 08/11/19 04:55: Magnesium 2.1 Current Medications Acetaminophen (Tylenol) 650 mg PO Q6H PRN PRN PRN Reason: Pain Score 1-5/10 Last Admin: 08/10/19 09:04 Dose: 650 mg Documented by: Amlodipine Besylate (Norvasc) 2.5 mg PO DAILY [facility] Last Admin: 08/11/19 05:26 Dose: 2.5 mg Documented by: Aspirin (Aspirin, Baby) 81 mg PO DAILY@0800 [facility] Last Admin: 08/11/19 05:26 Dose: 81 mg Documented by: Clopidogrel Bisulfate (Plavix) 75 mg PO DAILY [facility] Last Admin: 08/11/19 05:27 Dose: 75 mg Documented by: Dextrose (D50w Syringe) 0 gm IV X1 PRN; Protocol PRN Reason: Hypoglycemia Glucagon () 1 mg IM .X1 PRN PRN Reason: Hypoglycemia Heparin Sodium (Porcine) (Heparin Na) 0 unit IV UD PRN; Protocol Last Admin: 08/10/19 11:44 Dose: 1,000 unit Documented by: Hydralazine HCl (Apresoline) 10 mg PO TID [facility] Last Admin: 08/11/19 05:26 Dose: 10 mg Documented by: Hydralazine HCl (Apresoline Iv) 10 mg IV Q6H PRN PRN PRN Reason: HYPERTENSION Sodium Chloride () 250 mls @ 15 mls/hr IV .[id number] PRN PRN Reason: Saline Flush Heparin Sodium/Dextrose () 25,000 units in 250 mls @ 12 mls/hr IV .[id number] [facility]; Protocol Last Titration: 08/11/19 06:00 Dose: 0 units/hr, 0 mls/hr Documented by: Ceftriaxone Sodium (Rocephin) 1 gm in 50 mls @ 100 mls/hr IV Q24 [facility] Stop: 08/14/19 10:01 Last Infusion: 08/10/19 10:08 Dose: Infused Documented by: Azithromycin 500 mg/ Dextrose 255 mls @ 250 mls/hr IV Q24 [facility] Last Infusion: 08/10/19 12:15 Dose: Infused Documented by: Isosorbide Mononitrate (Imdur) 30 mg PO DAILY [facility] Last Admin: 08/11/19 05:27 Dose: 30 mg Documented by: Lidocaine (Lidoderm Patch) 1 patch TOPICAL DAILY [facility]; Protocol Last Admin: 08/10/19 07:54 Dose: 1 patch Documented by: Oxycodone HCl (Oxyir) 5 mg PO Q6H PRN PRN PRN Reason: Pain Score 6-10/10 Last Admin: 08/08/19 23:10 Dose: 5 mg Documented by: Sodium Chloride () 10 - 40 ml IV UD PRN PRN Reason: SALINE FLUSH Last Admin: 08/10/19 11:45 Dose: 10 ml Documented by: STROKE Vital Signs/Narrative: Vital Signs Temp Pulse Resp BP Pulse Ox 08/11/19 06:52 73 08/11/19 06:51 98.6 F 68 18 152/84 H 95 08/11/19 05:26 61 Medical Necessity - Tobacco Use Smoking Status: Never smoker Tobacco Use: Non-smoker Assessment/Plan All Active Problems Cardiac arrest with ventricular fibrillation (Acute) LV dysfunction (Acute) Diabetes (Acute) Atrial flutter (Acute) This is a 74-year-old male was admitted after he collapsed at work and found to be in cardiac arrest with V. fib status post 2 defibrillation shock and CPR, intubated and was admitted. After that patient was stabilized, patient had heart cath today. 1. Cardiac conditions: Acute hypoxic respiratory failure with cardiac arrest, V. fib arrest/new onset atrial flutter/atrial fibrillation/acute systolic CHF: Patient troponin peaked at 0.361. Prior to that patient in ICU was on dopamine, amiodarone drip. Extubated on 08/07/2019. Patient was on heparin drip prior to cardiac cath. Patient had cardiac catheter 08/11. Patient was found to have single-vessel disease of mid left circumflex. Nonobstructive coronary artery disease. Successful PCI with stent. Continue aspirin, atorvastatin, Plavix, Lasix, hydralazine, isosorbide mononitrate. Lisinopril was not initiated because of acute kidney injury. 2. Acute hypoxic respiratory failure with right lower lobe pneumonia: Chest x- ray reported as patchy infiltrate in the medial aspect of right lower lobe compared to the previous x-ray. On ceftriaxone and Zithromax. Sputum culture is growing Serratia marcescens. Can stop azithromycin after third dose on 08/11. 3. Acute kidney injury with hypokalemia: Creatinine increased from 1.45-1.82. Creatinine peaked up at 2.42 and then 1.82. BUN 39. K2.8. Potassium 40 M EQ IV replaced. 4. Type 2 diabetes mellitus -He was not on any medications at home -Continue with Accu-Cheks and sliding scale insulin 5. BPH -Is on Flomax and doxazosin as an outpatient. Resumed - DVT: Patient will need oral anticoagulant, typed and inhibitor after 24 hours of cath procedure. Cardiac cath finding, medications discussed with the patient and his near the bedside. Clinical Impression(s) from Imaging Studies Brain CT 08/05/19 14:17 IMPRESSION: Chronic involutional changes of the brain. Chest X-Ray 08/09/19 11:16 IMPRESSION: Right lower lobe infiltrate likely due to pneumonia. Microbiology Past 72 Hours 08/07/19 03:20 Sputum, Induced/Lukens Gram Stain - Final 08/07/19 03:20 Sputum, Induced/Lukens Respiratory Culture - Final Serratia marcescens Laboratory Results 08/10/19 10:38: APTT 52.5 H 08/10/19 17:40: APTT 78.1 H 08/10/19 23:54: APTT 65.2 H 08/11/19 04:55: Sodium 144, Potassium 2.8 L, Chloride 107, Carbon Dioxide 29.0, Anion Gap 8, BUN 39 H, Creatinine 1.82 H, Estim Creat Clear Calc 32.28, Est GFR (MDRD) Af Amer 47 L, Est GFR (MDRD) Non-Af 39 L, BUN/Creatinine Ratio 21.4 H, Glucose 124 H, Calcium 9.3 08/11/19 04:55: APTT 67.0 H 08/11/19 04:55: Magnesium 2.1 Code Visit Inpatient E&M: 90843 Init Hosp L3
--- NOTE | 2019-08-11 10:01 | CL.I_ITS ---
Patient Name: MARY MARTINEZ Study Date: 08/11/2019 Performing: Andres Lemus MD Ht: 66.92 inches 170 cm : 1945 Wt: 194.01 lbs 88 kg Age: 74 Gender: male BSA: 1.99 PROCEDURE(S) PERFORMED LD17-CWK/COR QT54-PYG W OR WO PTCA, SINGLE CORONARY ARTERY CLINICAL PROFILE AND CO-MORBIDITIES Indications: ACS > 24 hrs, Resuscitated Cardiac Arrest, Suspected CAD, LV Dysfunction Heart Failure: NYHA Class: 4, Newly Diagnosed: Yes, Heart Failure Type: Systolic Stress/Imaging Stress/Image Study Performed: No Angina Classification Anginal Classification w/in 2 Weeks: No symptoms CAD Presentations: Non-STEMI. Symptom onset Date/Time: 08/05/2019 Time Not Available Other: Cardi ac arrest Comorbidities/Risk Factors: Hypertension Dyslipidemia CONCLUSIONS Single vessel CAD of the mid LCX Non obstructive coronary arteries Successful PTCA/WHITNEY mid LCX with a 3.0 x 16 Promus Synergy, post dilated with a 3.0 x 8 NC Balloon; 7 5%-->0%, no dissection. 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 Lemus Successful Mynx Control Closure device. DESCRIPTION OF PROCEDURE The patient arrived to the procedure lab. The risks and benefits of the procedure as well as a full d escription of our services here and lack of surgical backup were fully explained to the patient and/o r their significant other prior to the catheterization. The Timeout was completed, verifying the cristóbal ect patient and procedure. The patient's procedural site was prepped and draped in the usual fashion. Local anesthetic was given subcutaneously to right groin region with Lidocaine 2%. Using a modified Seldinger technique, arterial access was obtained via the right femoral artery, a 4Fr sheath was inse rted. Left Coronary Artery selective angiography was performed in multiple views using a 4 Fr. JL5 c atheter. Left Coronary Artery selective angiography was performed in multiple views using a 4 Fr. JL4 catheter. Right Coronary Artery selective angiography was then performed in multiple views using a 4 Fr. 3DRC catheter. LV to AO pullback pressures were then recordedThe images were reviewed and options discussed. A decision was then made to proceed with an Intervention, IVUS or other adjunc t procedure. Arterial sheath was exchanged for a 6 Fr Sheath. EBU 3.75 Guide catheter was inserted and engaged into the LCA. BMW Guide wire was advanced to the Circumflex. Emerge 2.00x12 Balloon catheter was ins erted. PTCA balloon inflated at 10 atms for 9 secs. Angiogram performed post balloon dilatation. Syne rgy 3.00x16 Drug Eluting stent was inserted. Angiogram performed post stent deployment. NC Emerge 3.0 0x8 Balloon catheter was inserted. PTCA balloon inflated at 7 atms for 13 secs. PTCA balloon inflated at 15 atms for 6 secs. PTCA balloon inflated at 15 atms for 8 secs. Angiogram performed post balloon dilatation. Contrast was injected through the sheath and the Right Iliac and Femoral artery were ass essed for possible closure device. The arterial sheath was pulled and a Mynx closure device was depl oyed for hemostasis CORONARY ANGIOGRAPHY DOMINANCE: Left Dominant LEFT HEART ASSESSMENT Left Ventricular Ejection Fraction: Not assessed LEFT MAIN: Mild luminal irregularities less than 30% LEFT ANTERIOR DESCENDING ARTERY: Mild luminal irregularities less than 30% CIRCUMFLEX ARTERY: MID CIRC: 75 % Stenosis OM 2: Proximal - 99 % Stenosis, small subtotalled vessel., RIGHT CORONARY ARTERY: Non-obstructive INTERVENTION INFORMATION LESION SITE: Circumflex (Mid) Lesion Complexity: Non-High/Non-C, lesion at bifurcation: No, thrombus present: No, lesion length: 16 mm, culprit lesion: Yes Pre Stenosis: 75 % Pre intervention MUSHTAQ flow: 3 PROCEDURE: Drug Eluting Stent with pre and post dilatation Post Stenosis: 0 % Post intervention MUSHTAQ flow: 3 Lesion Devices: Ramirez .014 BMW Goode Straight 190cm Medtronic 6 Fr EBU3.75 100cm Guide Catheter Shon Sci EMERGE MR 2.00x12 BALLOON Shon Sci Synergy MR WHITNEY 3.00x16 Shon Sci NC EMERGE MR 3.00x08 BALLOON COMPLICATIONS No Complications PROCEDURE MEDICATIONS Oxygen: 2 L/min via nasal cannula Heparin 6000 unit(s) IV 08/11/2019 09:24:59 Nitro 200 mcg IC 08/11/2019 09:25:39 Nitro 200 mcg IC 08/11/2019 09:25:39 IV Bolus: .9 NaCl ml total 08/11/2019 09:26:30 SUMMARY OF HEMODYNAMIC DATA Time AIR REST ECG 08:58:19 AO 168/92 (114) SA 09:14:29 LV 174/-5, 14 09:21:52 LV 171/-4, 14 09:21:58 LVp 159/-1, 16 09:22:14 AOp 173/77 (114) 09:22:19 Signed By Andres Lemus MD On 08/11/2019 10:01:06 Andres Lemus MD
[2019-08-11 10:06] LABS: ACT Activated Clotting Time 186 sec (74-137)
--- NOTE | 2019-08-11 10:31 | EKG12_ITS ---
Test Reason : MORNING EKG Blood Pressure : / mmHG Vent. Rate : 071 BPM Atrial Rate : 064 BPM P-R Int : 000 ms QRS Dur : 124 ms QT Int : 388 ms P-R-T Axes : 000 -14 119 degrees QTc Int : 421 ms Atrial Flutter with variable conduction, PVC, PAC Septal infarct , age undetermined Abnormal ECG When compared with ECG of 09-AUG-2019 00:14, MANUAL COMPARISON REQUIRED, DATA IS UNCONFIRMED Confirmed by MALCOM MORAN ([id number]), features editor HEMA BEVERLY ([id number]) on 08/19/2019 10:18:42 AM Referred By: Venkata Gann Confirmed By:MALCOM MORAN
[2019-08-11] MEDS: Carvedilol 6.25 MG Tablet PO ×2 (11:47→21:51)
[2019-08-11] MEDS: 0.9% Normal Saline 1,000 ML 150 ML IV (13:08)
--- NOTE | 2019-08-11 13:33 | CRPHASE1 ---
Patient Communication PHII Cardiac Rehab Discussed with Patient:: Yes Guide to Cardiac Rehab Given to Patient:: Yes Cardiac Rehab Facility Choice List Given to Patient:: Yes - [facility] Choice Program [facility] CR PHII:: Communication Given to CR Clothes Presser:: Andres Lemus Sessions:: 36 sessions - 3 days/wk, 12 weeks Risk Factors/Lifestyle Smoking Status: Never smoker Hx Hypertension: Yes Hx Diabetes Mellitus Type 2: No Height: 1.7 m Weight:: 88.1 kg BMI: 30.4 ETOH: No Caffeine: Yes Substance Abuse: No Risk Factor for Sedentary Lifestyle: Lowest Risk Family History: High Cholesterol, Hypertension Phase I Education Given On:: [place] Issues Affecting Care:: None Knowledge of Condition:: Yes Hospital Course Cardiac Cath Date:: 08/11/19 Medical/Surgical History [place]:: Yes Diabetes Type II:: No Hypertension:: Yes Discharge/Home/Social Eval Discharge Disposition: Home Cardiac Rehabilitation Info Cardiac Rehabilitation Program Information: Cardiac Rehabilitation is important for patients like you who are recovering from a heart problem. Cardiac rehabilitation programs are recognized as integral to the continued care of the patient with coronary heart disease. The cardiac rehabilitation program is designed to optimize a patient's physical, psychological, and social functioning. Health director of patient care work in cardiac rehabilitation programs and assist you with getting the treatments you need to get stronger and healthier - like exercise, healthy eating habits, and medications. Cardiac rehabilitation has been show to help people with heart problems live longer and have better life enjoyment than people who do not go to cardiac rehabilitation. Please contact the Cardiac Rehabilitation Program at [facility] at in two weeks if you have not heard from them.
--- NOTE | 2019-08-11 13:38 | CRPH1.INSTRU ---
General Education CAD and cardiac anatomy and function:: Patient communicates acknowledgment Explanation of diagnoses and procedures:: Patient communicates acknowledgment Sign/Symptoms of NV:: Patient communicates acknowledgment Proper use of NTG-SL: Not instructed Emergency procedures and activation of EMS: Not instructed Compliance of all prescribed medications: Not instructed Smoking Patient Nicotine/Smoking Risk Factors Are:: Never smoked Dyslipidemia Recommendations Include:: Lipid profile not available Overweight/Obesity Patient Overweight/Obesity Risk Factors Are:: Obesity - > or = 30 Overweight/Obesity:: Patient communicates acknowledgment Hypertension Recommendations Include:: Maintain BP <130/85 Hypertension:: Patient communicates acknowledgment Heart Disease Patient Heart Disease Risk Factors Are:: Family history of heart disease < 65 years old Heart Disease Response Code:: Patient communicates acknowledgment Diabetes Patient Diabetes Risk Factors Are:: No documented hx of diabetes Metabolic Syndrome Patient Metabolic Syndrome Risk Factors Are [3 of 5]:: Hypertension Metabolic Syndrome Response Code:: Patient communicates acknowledgment Sedentary Recommendations Include:: Monitored Outpatient Cardiac Rehab Sedentary Response Code:: Patient communicates acknowledgment Stress Patient Stress Risk Factors Are:: Patient denies stress as a risk factor
--- NOTE | 2019-08-11 14:19 | CHAPLAIN ---
brief follow up with a family member; the family is pleased with his recovery and express gratitude for everyone, including this customer insight analyst
[2019-08-11] MEDS: Lidocaine 5% Patch 1 PATCH TOPICAL (16:38)
[2019-08-11] MEDS: Ceftriaxone 1 GM/50 ML BAG IV (16:40)
[2019-08-11] MEDS: Furosemide 40 MG Tablet PO (16:41)
[2019-08-11] MEDS: 0.9% Saline Lock 10 ML Syringe IV (18:23)
[2019-08-11] MEDS: Tamsulosin HCl 0.4 MG Capsule PO (18:24)
[2019-08-11] MEDS: Atorvastatin Calcium 80 MG Tablet PO (21:50)
[2019-08-12] VITALS (16 sets, daily range): BP systolic 135–189; BP diastolic 65–109; PULSE 54–80; RESP 14–23; TEMP 36.4–37.2; O2SAT 92–99
[2019-08-12] MEDS: 0.9% Saline Lock 10 ML Syringe IV ×2 (04:17→09:38)
[2019-08-12 04:24] LABS: Hematocrit 39.4 % (40-54); Mean Corpuscular Hgb 29.8 pg (27.0-32.0); Mean Corpuscular Volume 90.4 fL (80-94); Platelet Count 187 K/mm3 (150-450); RBC Distribution Width CV 12.7 % (11.6-14.6); RBC Distribution Width SD 41.9 fl (35.1-43.9); Red Blood Count 4.36 M/mm3 (4.6-6.2); White Blood Count 9.7 K/mm3 (4.4-11.0)
[2019-08-12] MEDS: hydrALAZINE 10 MG Tablet PO (05:17)
[2019-08-12 05:30] LABS: ALB/GLOB Ratio 0.9 RATIO (0.9-2.4); AST(SGOT) 18 U/L (15-37); Alanine Aminotransfer ALT/SGPT 37 U/L (16-61); Albumin, Serum 2.9 g/dL (3.2-5.0); Alkaline Phosphatase 53 U/L (45-117); Anion Gap 6 (5-15); BUN 32 mg/dL (7-18); BUN/Creat Ratio 18.7 RATIO (10-20); Calcium,Total 9.1 mg/dL (8.5-10.1); Chloride 103 mmol/L (98-107); Creatinine, Serum 1.71 mg/dL (0.70-1.30); EST Glomerular Filtration Rate 42 mL/min (>60); Est Glom Filt Rate - Afr Amer 50 mL/min (>60); Estimated Creatinine Clearance 33.16 ml/min; Globulin 3.3 g/dL (2.2-4.2); Glucose 121 mg/dL (74-106); Protein, Total 6.2 g/dL (6.4-8.2); Sodium Level 141 mmol/L (136-145)
[2019-08-12] MEDS: hydrALAZINE 20 MG/ML Vial 10 MG IV (06:11)
--- NOTE | 2019-08-12 07:10 | PN_ITS ---
Subjective: The patient was seen and examined at the bedside this morning. Events from the last 24 hours have been reviewed. The patient is currently afebrile, hemodynamically stable and maintaining appropriate oxygen saturations on room air. The patient underwent cardiac catheterization yesterday and did require drug-eluting stent placement to the mid LCx. Potassium is again low this morning at 3.0. Creatinine is stable. Objective: The patient's most recent lab work, culture data and imaging studies have all been personally reviewed. - Physical Exam Vitals/I&O's: Vital Signs Temp Pulse Resp BP Pulse Ox 98.3 F 60 14 135/74 H 98 08/12/19 06:00 08/12/19 07:00 08/12/19 07:00 08/12/19 07:00 08/12/19 07:00 Oxygen Flow Rate (L/min) 1 Oxygen Delivery Method Room Air Weight: 195 lb 12.328 oz Body Mass Index (BMI) 31.2 Finger Stick Blood Glucose 278 Intake and Output for Last 24 Hours 08/10/19 08/11/19 08/12/19 23:59 23:59 23:59 Intake Total 2231.07 / 2231.07 2611.03 / 2611.03 480 / 480 Output Total 1050 / 1050 2125 / 2125 425 / 425 Balance 1181.07 / 1181.07 486.03 / 486.03 55 / 55 General: Alert, Cooperative, No apparent distress HEENT: Atraumatic, PERRLA, Normocephalic Oral: No Gingival or Mucosal Lesions/ Ulcerations Neck: Supple, No Nodes, Trachea Midline Lungs: No rhonchi, No wheeze, No rales, Diminished Cardiovascular: Regular rate, Regular Rhythm, Normal S1, Normal S2 Abdomen: Bowel Sounds Present, Soft, Non Tender, Obese Extremities: No clubbing, No cyanosis Skin: No breakdown Musculoskeletal: No Tenderness to Palpation of Joints or Extremities Lymphatic: No Cervical, Supraclavicular, or Inguinal Adenopathy Neurological: Neuro grossly intact Psych/Mental Status: Normal Affect, Appropriate Labs (Last 48 Hours) 08/09/19 08/10/19 08/10/19 07:06 10:38 17:40 WBC RBC Hgb Hct MCV MCH MCHC RDW Std Deviation RDW Coeff of Arturo Plt Count MPV APTT 52.5 H 78.1 H Activated Clotting Time Sodium Potassium Chloride Carbon Dioxide Anion Gap BUN Creatinine Estim Creat Clear Calc Est GFR (MDRD) Af Amer Est GFR (MDRD) Non-Af BUN/Creatinine Ratio Glucose Calcium Magnesium Total Bilirubin AST ALT Alkaline Phosphatase B-Natriuretic Peptide 741.0 H Total Protein Albumin Globulin Albumin/Globulin Ratio 08/10/19 08/11/19 08/11/19 23:54 04:55 04:55 WBC RBC Hgb Hct MCV MCH MCHC RDW Std Deviation RDW Coeff of Arturo Plt Count MPV APTT 65.2 H 67.0 H Activated Clotting Time Sodium 144 Potassium 2.8 L Chloride 107 Carbon Dioxide 29.0 Anion Gap 8 BUN 39 H Creatinine 1.82 H Estim Creat Clear Calc 32.28 Est GFR (MDRD) Af Amer 47 L Est GFR (MDRD) Non-Af 39 L BUN/Creatinine Ratio 21.4 H Glucose 124 H Calcium 9.3 Magnesium Total Bilirubin AST ALT Alkaline Phosphatase B-Natriuretic Peptide Total Protein Albumin Globulin Albumin/Globulin Ratio 08/11/19 08/11/19 08/12/19 04:55 09:40 04:15 WBC 9.7 RBC 4.36 L Hgb 13.0 Hct 39.4 L MCV 90.4 MCH 29.8 MCHC 33.0 RDW Std Deviation 41.9 RDW Coeff of Arturo 12.7 Plt Count 187 MPV 10.0 APTT Activated Clotting Time 186 H Sodium Potassium Chloride Carbon Dioxide Anion Gap BUN Creatinine Estim Creat Clear Calc Est GFR (MDRD) Af Amer Est GFR (MDRD) Non-Af BUN/Creatinine Ratio Glucose Calcium Magnesium 2.1 Total Bilirubin AST ALT Alkaline Phosphatase B-Natriuretic Peptide Total Protein Albumin Globulin Albumin/Globulin Ratio 08/12/19 04:15 WBC RBC Hgb Hct MCV MCH MCHC RDW Std Deviation RDW Coeff of Arturo Plt Count MPV APTT Activated Clotting Time Sodium 141 Potassium 3.0 L Chloride 103 Carbon Dioxide 32.0 Anion Gap 6 BUN 32 H Creatinine 1.71 H Estim Creat Clear Calc 33.16 Est GFR (MDRD) Af Amer 50 L Est GFR (MDRD) Non-Af 42 L BUN/Creatinine Ratio 18.7 Glucose 121 H Calcium 9.1 Magnesium Total Bilirubin 0.70 AST 18 ALT 37 Alkaline Phosphatase 53 B-Natriuretic Peptide Total Protein 6.2 L Albumin 2.9 L Globulin 3.3 Albumin/Globulin Ratio 0.9 Clinical Impression(s) from Imaging Studies Chest X-Ray 08/05/19 14:08 IMPRESSION: Gastric congestion. The tip of the endotracheal tube is at the level of the [place]. This should be pulled back 3 cm. Electronically Signed: Jerardo Henna, at 14:45 EST , Service support , Brain CT 08/05/19 14:17 IMPRESSION: Chronic involutional changes of the brain. N.B. : The above information has been verbally conveyed by Jerardo Aguillon to Andres Garza on 08/05/2019 15:48:24 (ET). Electronically Signed: Jerardo Aguillon, at 15:51 EST , Service support , ADDENDUM: 08/05/19 1558 IMPRESSION: Chronic involutional changes of the brain. N.B. : The above information has been verbally conveyed by Jerardo Aguillon to Andres Garza on 08/05/2019 15:48:24 (ET). Electronically Signed: Jerardo Henna, at 15:51 EST , Service support , Chest X-Ray 08/05/19 17:40 IMPRESSION: Endotracheal tube tip in the mid thoracic trachea. Electronically Signed: Reynold Gómez, at 18:56 EST Tel , Service support , Chest X-Ray 08/06/19 01:27 IMPRESSION: Right-sided central venous catheter tip at the cavoatrial junction. Mild retrocardiac atelectasis versus infiltrate. at 0210 Reported and signed by: Darlene Carlos MD Electronically Signed: Darlene Carlos MD at 2:10 EST Tel , Service support , KUB X-Ray 08/06/19 06:54 IMPRESSION: Nonspecific bowel gas pattern. Electronically Signed: Jerardo Henna, at 10:37 EST , Service support , Chest X-Ray 08/09/19 11:16 IMPRESSION: Right lower lobe infiltrate likely due to pneumonia. Electronically Signed: Patrikc Petit MD at 15:44 EST Tel , Service support , Current Medications Acetaminophen (Tylenol) 650 mg PO Q6H PRN PRN PRN Reason: Pain Score 1-5/10 Last Admin: 08/10/19 09:04 Dose: 650 mg Documented by: Amlodipine Besylate (Norvasc) 2.5 mg PO DAILY [facility] Last Admin: 08/11/19 05:26 Dose: 2.5 mg Documented by: Aspirin (Aspirin, Baby) 81 mg PO DAILY@0800 [facility] Last Admin: 08/11/19 05:26 Dose: 81 mg Documented by: Atorvastatin Calcium (Lipitor) 80 mg PO QHS [facility] Last Admin: 08/11/19 21:50 Dose: 80 mg Documented by: Atropine Sulfate () 0.5 mg IV UD PRN PRN Reason: HR <50 bpm Carvedilol (Coreg) 6.25 mg PO BID [facility] Last Admin: 08/11/19 21:51 Dose: 6.25 mg Documented by: Clopidogrel Bisulfate (Plavix) 75 mg PO DAILY [facility] Last Admin: 08/11/19 05:27 Dose: 75 mg Documented by: Dextrose (D50w Syringe) 0 gm IV X1 PRN; Protocol PRN Reason: Hypoglycemia Doxazosin Mesylate (Cardura) 4 mg PO DAILY [facility] Furosemide (Lasix) 40 mg PO DAILY [facility] Last Admin: 08/11/19 16:41 Dose: 40 mg Documented by: Glucagon () 1 mg IM .X1 PRN PRN Reason: Hypoglycemia Heparin Sodium (Beef Lung) (Heparin 500 Unit/5 Ml (100/Ml)) 500 unit IV UD PRN PRN Reason: HEPARIN FLUSH Hydralazine HCl (Apresoline) 10 mg PO TID [facility] Last Admin: 08/12/19 05:17 Dose: 10 mg Documented by: Hydralazine HCl (Apresoline Iv) 10 mg IV Q6H PRN PRN PRN Reason: HYPERTENSION Last Admin: 08/12/19 06:11 Dose: 10 mg Documented by: Sodium Chloride () 250 mls @ 15 mls/hr IV .[id number] PRN PRN Reason: Saline Flush Ceftriaxone Sodium (Rocephin) 1 gm in 50 mls @ 100 mls/hr IV Q24 [facility] Stop: 08/14/19 10:01 Last Infusion: 08/11/19 17:10 Dose: Infused Documented by: Azithromycin 500 mg/ Dextrose 255 mls @ 250 mls/hr IV Q24 [facility] Last Infusion: 08/11/19 17:42 Dose: Infused Documented by: Potassium Chloride 40 meq/ (Sodium Chloride) 120 mls @ 100 mls/hr IV BOLUS X1 ONE Stop: 08/12/19 08:26 Isosorbide Mononitrate (Imdur) 30 mg PO DAILY [facility] Last Admin: 08/11/19 05:27 Dose: 30 mg Documented by: Labetalol HCl (Trandate) 5 mg IV X1 PRN PRN Reason: SBP > 160 when pulling sheath Lidocaine (Lidoderm Patch) 1 patch TOPICAL DAILY [facility]; Protocol Last Admin: 08/11/19 16:38 Dose: 1 patch Documented by: Lorazepam (Ativan) 1 mg PO Q6H PRN PRN PRN Reason: BACK SPASMS/ANXIETY Metoclopramide HCl (Reglan) 5 mg IV Q6H PRN PRN PRN Reason: NAUSEA/VOMITING Morphine Sulfate () 2 mg IV Q4H PRN PRN PRN Reason: Mild back pain (1-10/10) Nitroglycerin (Nitrostat) 0.4 mg SUBLINGUAL Q5M PRN PRN Reason: CARDIAC/CHEST PAIN Oxycodone HCl (Oxyir) 5 mg PO Q6H PRN PRN PRN Reason: Pain Score 6-10/10 Last Admin: 08/08/19 23:10 Dose: 5 mg Documented by: Sodium Chloride () 10 - 40 ml IV UD PRN PRN Reason: SALINE FLUSH Last Admin: 08/12/19 04:17 Dose: 20 ml Documented by: Sodium Chloride () 500 ml IV BOLUS PRN PRN Reason: VASO-VAGAL PROTOCOL Tamsulosin HCl (Flomax) 0.4 mg PO DINNER [facility] Last Admin: 08/11/19 18:24 Dose: 0.4 mg Documented by: Medical Necessity - Tobacco Use Smoking Status: Never smoker Tobacco Use: Non-smoker Assessment/Plan All Active Problems (Last Updated 08/11/19 @ 18:10 by Salud Gtz) Cardiac arrest with ventricular fibrillation (Acute) LV dysfunction (Acute) Atrial flutter (Acute) RECOMMENDATIONS: 1. Continue primary medical management per cardiology recommendations. 2. Potassium repletion as ordered. 3. Encourage incentive spirometer use and mobilize patient as tolerated. 4. Given the patient's lack of further ICU or pulmonary needs, will sign off. IMPRESSIONS: 1. V. fib arrest/hypokalemia The patient has been stabilized from a medical perspective. Cardiology is currently following with plans for cardiac catheterization at some point. Will defer primary medical management to cardiology accordingly. 2. New onset a flutter Continue current medical management with heparin and beta-blockade. 3. Systolic congestive heart failure Echocardiogram did reveal a depressed ejection fraction to 35%. Continue current medical management as noted above. 4. Acute respiratory failure Resolved at this time. The patient was able to be extubated on the morning of 08/07. He is currently maintaining appropriate oxygen saturations on room air. Continue to encourage incentive parameter use and mobilize patient as tolerated. 5. Acute kidney injury Improving. Likely secondary to perturbations and hemodynamics in the setting of #1. The patient remains hemodynamically stable. 6. BPH/advanced age/poor medical history Complicates care, management, recovery and prognosis. Okay to resume outpatient medications. This note was generated with [employer] dictation software. It may contain incorrect words, spelling, and punctuation that were not noted in checking the note before signing. Code Visit Inpatient E&M: 72020 Subs Hosp L2
--- NOTE | 2019-08-12 07:19 | PCM.PN.HOSP ---
Patient Problems: Active and Suspected Problems (Last Updated 08/11/19 @ 18:10 by Salud Gtz) Cardiac arrest with ventricular fibrillation (Acute) LV dysfunction (Acute) Atrial flutter (Acute) Vitals/I&O's: Vital Signs Temp Pulse Resp BP Pulse Ox 98.3 F 60 14 135/74 H 98 08/12/19 06:00 08/12/19 07:00 08/12/19 07:00 08/12/19 07:00 08/12/19 07:00 Oxygen Flow Rate (L/min) 1 Oxygen Delivery Method Room Air Weight: 195 lb 12.328 oz Body Mass Index (BMI) 31.2 Finger Stick Blood Glucose 278 Intake and Output for Last 24 Hours 08/10/19 08/11/19 08/12/19 23:59 23:59 23:59 Intake Total 2231.07 / 2231.07 2611.03 / 2611.03 480 / 480 Output Total 1050 / 1050 2125 / 2125 425 / 425 Balance 1181.07 / 1181.07 486.03 / 486.03 55 / 55 Microbiology Past 72 Hours 08/07/19 03:20 Sputum, Induced/Lukens Gram Stain - Final 08/07/19 03:20 Sputum, Induced/Lukens Respiratory Culture - Final Serratia marcescens Laboratory Results 08/09/19 07:06: B-Natriuretic Peptide 741.0 H 08/11/19 09:40: Activated Clotting Time 186 H 08/12/19 04:15: WBC 9.7, RBC 4.36 L, Hgb 13.0, Hct 39.4 L, MCV 90.4, MCH 29.8, MCHC 33.0, RDW Std Deviation 41.9, RDW Coeff of Arturo 12.7, Plt Count 187, MPV 10.0 08/12/19 04:15: Sodium 141, Potassium 3.0 L, Chloride 103, Carbon Dioxide 32.0, Anion Gap 6, BUN 32 H, Creatinine 1.71 H, Estim Creat Clear Calc 33.16, Est GFR (MDRD) Af Amer 50 L, Est GFR (MDRD) Non-Af 42 L, BUN/Creatinine Ratio 18.7, Glucose 121 H, Calcium 9.1, Total Bilirubin 0.70, AST 18, ALT 37, Alkaline Phosphatase 53, Total Protein 6.2 L, Albumin 2.9 L, Globulin 3.3, Albumin/Globulin Ratio 0.9 Current Medications Acetaminophen (Tylenol) 650 mg PO Q6H PRN PRN PRN Reason: Pain Score 1-5/10 Last Admin: 08/10/19 09:04 Dose: 650 mg Documented by: Amlodipine Besylate (Norvasc) 2.5 mg PO DAILY [facility] Last Admin: 08/11/19 05:26 Dose: 2.5 mg Documented by: Aspirin (Aspirin, Baby) 81 mg PO DAILY@0800 [facility] Last Admin: 08/11/19 05:26 Dose: 81 mg Documented by: Atorvastatin Calcium (Lipitor) 80 mg PO QHS [facility] Last Admin: 08/11/19 21:50 Dose: 80 mg Documented by: Atropine Sulfate () 0.5 mg IV UD PRN PRN Reason: HR <50 bpm Carvedilol (Coreg) 6.25 mg PO BID [facility] Last Admin: 08/11/19 21:51 Dose: 6.25 mg Documented by: Clopidogrel Bisulfate (Plavix) 75 mg PO DAILY [facility] Last Admin: 08/11/19 05:27 Dose: 75 mg Documented by: Dextrose (D50w Syringe) 0 gm IV X1 PRN; Protocol PRN Reason: Hypoglycemia Doxazosin Mesylate (Cardura) 4 mg PO DAILY [facility] Furosemide (Lasix) 40 mg PO DAILY [facility] Last Admin: 08/11/19 16:41 Dose: 40 mg Documented by: Glucagon () 1 mg IM .X1 PRN PRN Reason: Hypoglycemia Heparin Sodium (Beef Lung) (Heparin 500 Unit/5 Ml (100/Ml)) 500 unit IV UD PRN PRN Reason: HEPARIN FLUSH Hydralazine HCl (Apresoline) 10 mg PO TID [facility] Last Admin: 08/12/19 05:17 Dose: 10 mg Documented by: Hydralazine HCl (Apresoline Iv) 10 mg IV Q6H PRN PRN PRN Reason: HYPERTENSION Last Admin: 08/12/19 06:11 Dose: 10 mg Documented by: Sodium Chloride () 250 mls @ 15 mls/hr IV .[id number] PRN PRN Reason: Saline Flush Ceftriaxone Sodium (Rocephin) 1 gm in 50 mls @ 100 mls/hr IV Q24 [facility] Stop: 08/14/19 10:01 Last Infusion: 11/18/19 17:10 Dose: Infused Documented by: Azithromycin 500 mg/ Dextrose 255 mls @ 250 mls/hr IV Q24 [facility] Last Infusion: 08/11/19 17:42 Dose: Infused Documented by: Potassium Chloride 40 meq/ (Sodium Chloride) 120 mls @ 100 mls/hr IV BOLUS X1 ONE Stop: 08/12/19 08:26 Isosorbide Mononitrate (Imdur) 30 mg PO DAILY [facility] Last Admin: 08/11/19 05:27 Dose: 30 mg Documented by: Labetalol HCl (Trandate) 5 mg IV X1 PRN PRN Reason: SBP > 160 when pulling sheath Lidocaine (Lidoderm Patch) 1 patch TOPICAL DAILY [facility]; Protocol Last Admin: 08/11/19 16:38 Dose: 1 patch Documented by: Lorazepam (Ativan) 1 mg PO Q6H PRN PRN PRN Reason: BACK SPASMS/ANXIETY Metoclopramide HCl (Reglan) 5 mg IV Q6H PRN PRN PRN Reason: NAUSEA/VOMITING Morphine Sulfate () 2 mg IV Q4H PRN PRN PRN Reason: Mild back pain (1-10/10) Nitroglycerin (Nitrostat) 0.4 mg SUBLINGUAL Q5M PRN PRN Reason: CARDIAC/CHEST PAIN Oxycodone HCl (Oxyir) 5 mg PO Q6H PRN PRN PRN Reason: Pain Score 6-10/10 Last Admin: 08/08/19 23:10 Dose: 5 mg Documented by: Sodium Chloride () 10 - 40 ml IV UD PRN PRN Reason: SALINE FLUSH Last Admin: 08/12/19 04:17 Dose: 20 ml Documented by: Sodium Chloride () 500 ml IV BOLUS PRN PRN Reason: VASO-VAGAL PROTOCOL Tamsulosin HCl (Flomax) 0.4 mg PO DINNER [facility] Last Admin: 08/11/19 18:24 Dose: 0.4 mg Documented by: STROKE Vital Signs/Narrative: Vital Signs Temp Pulse Resp BP Pulse Ox 08/12/19 07:00 60 14 135/74 H 98 08/12/19 06:30 73 15 138/92 H 92 08/12/19 06:11 65 08/12/19 06:00 98.3 F 65 15 189/97 H 95 08/12/19 05:17 71 11/19/19 05:00 97.6 F L 70 16 177/93 H 98 08/12/19 04:00 98.3 F 61 15 179/65 H 95 08/12/19 03:35 65 Medical Necessity - Tobacco Use Smoking Status: Never smoker Tobacco Use: Non-smoker Assessment/Plan All Active Problems (Last Updated 08/11/19 @ 18:10 by Salud Gtz) Cardiac arrest with ventricular fibrillation (Acute) LV dysfunction (Acute) Atrial flutter (Acute)
--- NOTE | 2019-08-12 07:42 | DCINST_ITS ---
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 Non obstructive coronary arteries Successful PTCA/WHITNEY mid LCX with a 3.0 x 16 [employer] 08/11/2019 Arteriosclerosis of coronary artery in patient with history of myocardial infarction (Chronic) Cardiac arrest with ventricular fibrillation (Acute) LV dysfunction (Acute) Diabetes (Chronic) Atrial flutter (Acute) You will use the following diet at home:: Calorie/Carbohydrate Controlled (specify 1200, 1400, etc), Cardiac Your food should be the consistency of: Regular Discharge Activity: May Not Drive Weight Bearing Status: Weight bearing as tolerated Call your doctor if you observe: Fever of 101 or Higher, Numbness or Tingling, Inability to urinate, Inability to have a bowel movement, Shortness of breath, Dizziness, Fainting spells, Chest pain, Prolonged hiccoughing, Increased palpitations (irregular heartbeat), Calf discomfort Allergies/Adverse Reactions: Allergies No Known Allergies Allergy (Verified 08/05/19 13:54) Medications to take at Discharge Doxazosin Mesylate [Cardura] 4 mg PO DAILY 08/05/19 Tamsulosin HCl 0.4 mg PO DINNER 08/05/19 Amlodipine [Norvasc] 2.5 mg PO DAILY #30 tab 08/12/19 Aspirin [Aspirin, Baby] 81 mg PO DAILY@0800 #30 tab.chew 08/12/19 Atorvastatin Calcium [Lipitor] 80 mg PO QHS #30 tab 08/12/19 Carvedilol [Coreg (Beta Latrice)] 6.25 mg PO BID #30 tab 08/12/19 Ciprofloxacin [Cipro] 500 mg PO BID #7 tab 08/12/19 Clopidogrel Bisulfate [Plavix] 75 mg PO DAILY #30 tab 08/12/19 Furosemide [Lasix] 40 mg PO DAILY #30 tab 08/12/19 Isosorbide Mononitrate [Imdur] 30 mg PO DAILY #30 tab 08/12/19 Nitroglycerin (INPATIENT USE) [Nitrostat] 0.4 mg SUBLINGUAL Q5M PRN #30 tab.subl 08/12/19 Potassium Chloride [K-Dur] 40 meq PO BID #30 tab 08/12/19 Warfarin [Coumadin ([facility])] 2.5 mg PO DAILY #30 tab 08/12/19 hydrALAZINE [Apresoline] 10 mg PO TID #90 tab 08/12/19 The following prescriptions were given: hydrALAZINE [Apresoline] 10 mg PO TID #90 tab Transmission Status: Received by [facility] Aspirin [Aspirin, Baby] 81 mg PO DAILY@0800 #30 tab.chew Transmission Status: Received by [facility] Ciprofloxacin [Cipro] 500 mg PO BID #7 tab Transmission Status: Received by [facility] Carvedilol [Coreg (Beta Latrice)] 6.25 mg PO BID #30 tab Transmission Status: Received by [facility] Warfarin [Coumadin ([facility])] 2.5 mg PO DAILY #30 tab Transmission Status: Received by [facility] Isosorbide Mononitrate [Imdur] 30 mg PO DAILY #30 tab Transmission Status: Received by [facility] Potassium Chloride [K-Dur] 40 meq PO BID #30 tab Transmission Status: Received by [facility] Furosemide [Lasix] 40 mg PO DAILY #30 tab Transmission Status: Received by [facility] Atorvastatin Calcium [Lipitor] 80 mg PO QHS #30 tab Transmission Status: Received by [facility] Nitroglycerin (INPATIENT USE) [Nitrostat] 0.4 mg SUBLINGUAL Q5M PRN #30 tab.subl PRN Reason: Cardiac/Chest Pain Transmission Status: Received by [facility] Amlodipine [Norvasc] 2.5 mg PO DAILY #30 tab Transmission Status: Received by [facility] Clopidogrel Bisulfate [Plavix] 75 mg PO DAILY #30 tab Transmission Status: Received by [facility] Orders to be completed after discharge: Phase II, Outpatient Cardiac Rehab Location: None Selected Primary Care Physician: Manjit Colmenares DO [Primary Care Provider] - Please follow up with your Primary Care Physician in: in 1-2 week Test Results: Test results from this visit will be discussed in further detail at your follow- up appointment, if applicable. Please Follow Up With: Andres Lemus MD When: as scheduled Please Follow Up With: Amauri Shea DO When: in 2 weeks
[2019-08-12 08:26] LABS: Magnesium 2.1 mg/dL (1.6-2.6); Phosphorus 2.5 mg/dL (2.5-4.9)
--- NOTE | 2019-08-12 08:28 | PCM.PN.CARD ---
Subjectve: Patient doing much better this morning, feels much better, telemetry showed atrial fibrillation with controlled ventricular response and rare PVCs. Right groin is clean/dry/intact, no thrills, bruits or hematoma. EKG shows atrial fibrillation with controlled ventricular response, no acute changes. Chest pain or groin pain overnight. Objective: Vital Signs Temp Pulse Resp BP Pulse Ox 98.3 F 60 14 135/74 H 98 08/12/19 06:00 08/12/19 07:00 08/12/19 07:00 08/12/19 07:00 08/12/19 07:00 Oxygen Flow Rate (L/min) 1 Oxygen Delivery Method Room Air Weight: 195 lb 12.328 oz Body Mass Index (BMI) 31.2 Finger Stick Blood Glucose 278 Intake and Output for Last 24 Hours 08/10/19 08/11/19 08/12/19 23:59 23:59 23:59 Intake Total 2231.07 / 2231.07 2611.03 / 2611.03 480 / 480 Output Total 1050 / 1050 2125 / 2125 425 / 425 Balance 1181.07 / 1181.07 486.03 / 486.03 55 / 55 General: Awake, Alert, Oriented x 3 HEENT: PERRL, EOMI, Sclera Non Icteric Neck: Supple, Good ROM, No Lymph Node Enlargement Lungs: Clear to auscultation Cardiovascular: Irregular Rhythm, Normal S1, Normal S2, No Murmurs, No Rubs, No Gallops Vascular: No Carotid Bruits, Normal Femoral Pulses, Normal Radial Pulses, Normal Dorsalis Pedal Pulse, Normal Posterior Tibial Pulses Abdomen: Bowel Sounds Present, Soft, Non Tender, No HSM, No Organomegaly Extremities: No Cyanosis, No Clubbing, No edema Neurological: No Focal Motor or Sensory Deficit 08/09/19 07:06: B-Natriuretic Peptide 741.0 H 08/12/19 04:15: WBC 9.7, RBC 4.36 L, Hgb 13.0, Hct 39.4 L, MCV 90.4, MCH 29.8, MCHC 33.0, Plt Count 187, MPV 10.0 08/12/19 04:15: Sodium 141, Potassium 3.0 L, Chloride 103, Carbon Dioxide 32.0, Anion Gap 6, BUN 32 H, Creatinine 1.71 H, Est GFR (MDRD) Af Amer 50 L, Est GFR (MDRD) Non-Af 42 L, BUN/Creatinine Ratio 18.7, Glucose 121 H, Calcium 9.1, Total Bilirubin 0.70 08/12/19 04:15: Phosphorus 2.5, Magnesium 2.1 Rhythm: EKG: ECHO: Stress Test: Cardiac Cath: PCI: CT Surgery: Holter monitor: EPS: PPM: CXR: Chest CT Scan: Medical Necessity - Tobacco Use Smoking Status: Never smoker Tobacco Use: Non-smoker Assessment/Plan 1. V. fib arrest: The patient had V. fib arrest which apparently was witnessed with initiation of CPR relatively quickly followed by 911 EMS deployment followed by defibrillation x2 in the field. His EKG does not have overt ST segment elevation although he does have an intraventricular conduction delay in the left bundle branch block, there is no overt J-point elevation. His stat echocardiogram demonstrates severe global LV dysfunction with EF around 30 to 35% with no localized wall motion abnormalities. 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 According to the family and they have no known knowledge of atrial fibrillation, atrial flutter, or poor LV function. It is possible his LV dysfunction is acute as a result of his V. fib arrest. Patient underwent elective coronary angiography with PCI and drug-eluting stent to his mid left circumflex on 08/11/2019. This morning he is doing quite well, and feels much better. Telemetry is been negative and his right groin is clean/dry/intact. Patient require dual anti-platelet therapy at least for 1 years time including baby aspirin and Plavix. In addition he will be discharged on his current antihypertensive medications as outlined in the [facility]. He will be participating in cardiac rehab in 2 weeks time. We will repeat his echocardiogram at the conclusion of cardiac rehab to determine if his LV function has improved with a combination of medical therapy, angioplasty and stenting, cardiac resynchronization after cardioversion assuming that is successful, in cardiac rehab. If his LV function remains less than 35% he may require a defibrillator. 2. Atrial flutter: Patient's family states that they are unaware whether he has any kind of atrial arrhythmias and he was on no anticoagulation. Recommend starting Coumadin 2.5 mg p.o. daily, and follow-up in the [facility] Coumad[facility]. His INR will need to be between 2.0 and 3.0 for 4 consecutive weeks prior to DC cardioversion. Patient most likely benefit from normalization of his rhythm which can be done as an outpatient should he clinically improved. If his cardioversion is unsuccessful, he may require amiodarone therapy and another attempt in several weeks time. 3. 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 Patient may require renal consultation if his creatinine continues to worsen.I would recommend increasing Coreg to 6.25 mg p.o. twice daily as this is not renally excreted, and will control his heart rate and provide alpha blockade for afterload reduction. We can titrate this up as needed. In addition I recommend starting hydralazine 10 mg p.o. tid for afterload reduction as well as Imdur 30 mg p.o. daily for antihypertensive measures. 4. Thank you very much for the opportunity to participate in the cardiac care of your patient. She may be discharged home and follow-up with Dr. Lemus going forward. Code Visit Inpatient E&M: 28862 Subs Hosp L2
[2019-08-12] MEDS: Lidocaine 5% Patch 1 PATCH TOPICAL (09:37)
[2019-08-12] MEDS: Aspirin 81 MG TAB.CHEW PO (09:40)
[2019-08-12] MEDS: amLODIPine 2.5 MG Tablet PO (09:40)
[2019-08-12] MEDS: Isosorbide Mononitrate 30 MG Tablet PO (09:41)
[2019-08-12] MEDS: Carvedilol 6.25 MG Tablet PO (09:42)
[2019-08-12] MEDS: Furosemide 40 MG Tablet PO (09:43)
[2019-08-12] MEDS: Clopidogrel Bisulfate 75 MG Tablet PO (09:44)
[2019-08-12] MEDS: Doxazosin 4 MG Tablet PO (09:45)
--- NOTE | 2019-08-12 10:00 | EKG12_ITS ---
Test Reason : Blood Pressure : / mmHG Vent. Rate : 068 BPM Atrial Rate : 258 BPM P-R Int : 000 ms QRS Dur : 120 ms QT Int : 428 ms P-R-T Axes : 000 -13 043 degrees QTc Int : 455 ms Atrial fibrillation with premature ventricular or aberrantly conducted complexes Septal infarct , age undetermined Abnormal ECG When compared with ECG of 11-AUG-2019 10:19, MANUAL COMPARISON REQUIRED, DATA IS UNCONFIRMED Confirmed by MAINE LILLY, JOSE ([id number]), industrial editor OLI MARTINEZ ([id number] on 08/25/2019 1:53:01 PM Referred By: Venkata Gann Confirmed By:JOSE GROVE MD
--- NOTE | 2019-08-12 10:01 | CASEMGMT ---
[place] [employer] Note: Intro role of CM to patient, and family. Discussed PT/OT notes. Pt states he has been ambulating to bathroom without assistance. will be home to assist on dc. Discussed PT/OT outpt/home health options. and family state they will be available to assist pt at home. [place] request PT/OT work with pt this am and teach exercises she can do with pt @ home. Plan is to dc home with family support. No further needs identified. Laurent FERRER RN ACM
[2019-08-12 10:12] LABS: International Normalized Ratio 1.1; Prothrombin Time (Protime)PT. 14.3 SECONDS (11.7-14.9)
--- NOTE | 2019-08-12 12:15 | CHAPLAIN ---
patient is being discharged; gave a farewell to family and patient; all report thanks to God and good care
--- NOTE | 2019-08-12 13:33 | PCM.DC.SUM ---
Discharge Date and Diagnosis - Problem List Patient Problems: Active and Suspected Problems (Last Updated 08/11/19 @ 18:10 by Salud Gtz) Cardiac arrest with ventricular fibrillation (Acute) LV dysfunction (Acute) Atrial flutter (Acute) Date of Admission: 08/05/19 Date of Discharge: 08/12/19 - Primary Discharge Diagnosis Active and Suspected Problems (Last Updated 08/11/19 @ 18:10 by Salud Gtz) Cardiac arrest with ventricular fibrillation (Acute) LV dysfunction (Acute) Atrial flutter (Acute) - Secondary Discharge Diagnosis Chronic Problems (Last Updated 08/11/19 @ 18:10 by Salud Gtz) Stented coronary artery (Chronic 08/11/19) 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 fib status post 2 defibrillation shock and CPR, intubated and was admitted. After that patient was stabilized, patient had heart cath today. Patient was admitted in ICU and then transferred to PCU and then back to ICU after PCI. 1. Cardiac conditions: Acute hypoxic respiratory failure, V. fib tach arrest/new onset atrial flutter/atrial fibrillation/acute systolic CHF: Patient troponin peaked at 0.361. Prior to that patient in ICU was on dopamine, amiodarone drip. Extubated on 08/07/2019. Patient was on heparin drip prior to cardiac cath. Patient had cardiac catheter 08/11. Patient was found to have single-vessel disease of mid left circumflex. Nonobstructive coronary artery disease. Successful PCI with stent. Continue aspirin, atorvastatin, Plavix, Lasix, hydralazine, isosorbide mononitrate. Lisinopril was not initiated because of acute kidney injury. Scripts sent to patient's pharmacy. Patient also on low-dose of Coumadin started for atrial fibrillation/flutter. Follow-up INR as an outpatient as per PCP. 2. Acute hypoxic respiratory failure with Serratia marcescens right lower lobe pneumonia: Chest x-ray reported as patchy infiltrate in the medial aspect of right lower lobe compared to the previous x-ray. On ceftriaxone and Zithromax. Sputum culture is growing Serratia marcescens. Had 3 days of azithromycin. Patient discharged on Cipro as per the sensitivity to complete a total of 7 days 3. Acute kidney injury with hypokalemia: Creatinine increased from 1.45-1.82. Creatinine peaked up at 2.42 and then 1.82. BUN 39. K3.0. Kidney function is stable and improving. Patient may need follow-up with nephrology as an outpatient based on outpatient BMP lab as deemed necessary by PCP and psychology professor Dr. Lemus. 4. Type 2 diabetes mellitus -He was not on any medications at home -Continue with Accu-Cheks and sliding scale insulin. Patient blood sugar was controlled with insulin. Patient is discharged on glipizide XL 5 mg daily. Follow-up PCP in 1 week with further glucose control and A1c. 5. BPH -Is on Flomax and doxazosin as an outpatient. Resumed Discharge medication reconciliation done. Discharge follow-up instructions completed. Discharge process discussed with the patient and all questions were answered to patient's satisfaction. Scripts for all cardiac medications, Coumadin and glipizide XL sent to patient's pharmacy. Patient also need to follow-up PCP within 1 week for outpatient labs BMP, INR for Coumadin and glucose control. Patient will need to be on Coumadin for 3 to 4 weeks with INR between 2 to 3 days for trial of cardioversion. Cardiology 2 weeks. Follow-up with Dr. Shea. Discharge process discussed with the patient in the room Total time spent, exact 35 minutes on discharge meds reconciliation, examination, review of imaging and blood test and discussion with the patient on follow-up instructions. 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 Rare PVCs. Patient denies any acute events overnight. No chest pain or pressure. Right groin no hematoma or bleeding. - Physical Exam Vitals/I&O's: Vital Signs Temp Pulse Resp BP Pulse Ox 98.3 F 79 18 152/109 H 99 08/12/19 09:00 08/12/19 10:00 08/12/19 10:00 08/12/19 10:00 08/12/19 10:00 Oxygen Flow Rate (L/min) 1 Oxygen Delivery Method Room Air Weight: 195 lb 12.328 oz Body Mass Index (BMI) 31.2 Finger Stick Blood Glucose 278 Intake and Output for Last 24 Hours 08/10/19 08/11/19 08/12/19 23:59 23:59 23:59 Intake Total 2231.07 / 2231.07 2611.03 / 2611.03 600 / 600 Output Total 1050 / 1050 2125 / 2125 425 / 425 Balance 1181.07 / 1181.07 486.03 / 486.03 175 / 175 General: Alert, Oriented x3, Cooperative HEENT: Atraumatic, PERRLA, EOMI, Normocephalic Neck: Supple, No JVD, Negative Carotid Bruits Lungs: Clear to auscultation, Normal air movement, No rhonchi, No wheeze, No rales Cardiovascular: No murmurs, Irregular Rate, - - Occasional PVCs on monitor Abdomen: Bowel Sounds Present, Soft, Non Tender, Non-Distended Extremities: No edema, Capillary Refill Less than 3 Seconds Skin: No rashes, No breakdown Musculoskeletal: No Tenderness to Palpation of Joints or Extremities, Arthritic Changes Neurological: Cranial nerves II-XII grossly intact Psych/Mental Status: Normal Affect, Appropriate Laboratory Results 08/12/19 04:15: WBC 9.7, RBC 4.36 L, Hgb 13.0, Hct 39.4 L, MCV 90.4, MCH 29.8, MCHC 33.0, RDW Std Deviation 41.9, RDW Coeff of Arturo 12.7, Plt Count 187, MPV 10.0 08/12/19 04:15: Sodium 141, Potassium 3.0 L, Chloride 103, Carbon Dioxide 32.0, Anion Gap 6, BUN 32 H, Creatinine 1.71 H, Estim Creat Clear Calc 33.16, Est GFR (MDRD) Af Amer 50 L, Est GFR (MDRD) Non-Af 42 L, BUN/Creatinine Ratio 18.7, Glucose 121 H, Calcium 9.1, Total Bilirubin 0.70, AST 18, ALT 37, Alkaline Phosphatase 53, Total Protein 6.2 L, Albumin 2.9 L, Globulin 3.3, Albumin/Globulin Ratio 0.9 08/12/19 04:15: Phosphorus 2.5, Magnesium 2.1 08/12/19 09:35: PT 14.3, INR 1.1 Current Medications Acetaminophen (Tylenol) 650 mg PO Q6H PRN PRN PRN Reason: Pain Score 1-5/10 Last Admin: 08/10/19 09:04 Dose: 650 mg Documented by: Amlodipine Besylate (Norvasc) 2.5 mg PO DAILY [facility] Last Admin: 08/12/19 09:40 Dose: 2.5 mg Documented by: Aspirin (Aspirin, Baby) 81 mg PO DAILY@0800 [facility] Last Admin: 08/12/19 09:40 Dose: 81 mg Documented by: Atorvastatin Calcium (Lipitor) 80 mg PO QHS [facility] Last Admin: 08/11/19 21:50 Dose: 80 mg Documented by: Atropine Sulfate () 0.5 mg IV UD PRN PRN Reason: HR <50 bpm Carvedilol (Coreg) 6.25 mg PO BID [facility] Last Admin: 08/12/19 09:42 Dose: 6.25 mg Documented by: Clopidogrel Bisulfate (Plavix) 75 mg PO DAILY [facility] Last Admin: 08/12/19 09:44 Dose: 75 mg Documented by: Dextrose (D50w Syringe) 0 gm IV X1 PRN; Protocol PRN Reason: Hypoglycemia Doxazosin Mesylate (Cardura) 4 mg PO DAILY [facility] Last Admin: 08/12/19 09:45 Dose: 4 mg Documented by: Furosemide (Lasix) 40 mg PO DAILY [facility] Last Admin: 08/12/19 09:43 Dose: 40 mg Documented by: Glucagon () 1 mg IM .X1 PRN PRN Reason: Hypoglycemia Heparin Sodium (Beef Lung) (Heparin 500 Unit/5 Ml (100/Ml)) 500 unit IV UD PRN PRN Reason: HEPARIN FLUSH Hydralazine HCl (Apresoline) 10 mg PO TID [facility] Last Admin: 08/12/19 05:17 Dose: 10 mg Documented by: Hydralazine HCl (Apresoline Iv) 10 mg IV Q6H PRN PRN PRN Reason: HYPERTENSION Last Admin: 08/12/19 06:11 Dose: 10 mg Documented by: Sodium Chloride () 250 mls @ 15 mls/hr IV .[id number] PRN PRN Reason: Saline Flush Ceftriaxone Sodium (Rocephin) 1 gm in 50 mls @ 100 mls/hr IV Q24 [facility] Stop: 08/14/19 10:01 Last Infusion: 08/11/19 17:10 Dose: Infused Documented by: Azithromycin 500 mg/ Dextrose 255 mls @ 250 mls/hr IV Q24 [facility] Last Infusion: 08/11/19 17:42 Dose: Infused Documented by: Isosorbide Mononitrate (Imdur) 30 mg PO DAILY [facility] Last Admin: 08/12/19 09:41 Dose: 30 mg Documented by: Labetalol HCl (Trandate) 5 mg IV X1 PRN PRN Reason: SBP > 160 when pulling sheath Lidocaine (Lidoderm Patch) 1 patch TOPICAL DAILY [facility]; Protocol Last Admin: 08/12/19 09:37 Dose: 1 patch Documented by: Lorazepam (Ativan) 1 mg PO Q6H PRN PRN PRN Reason: BACK SPASMS/ANXIETY Metoclopramide HCl (Reglan) 5 mg IV Q6H PRN PRN PRN Reason: NAUSEA/VOMITING Morphine Sulfate () 2 mg IV Q4H PRN PRN PRN Reason: Mild back pain (1-10/10) Nitroglycerin (Nitrostat) 0.4 mg SUBLINGUAL Q5M PRN PRN Reason: CARDIAC/CHEST PAIN Oxycodone HCl (Oxyir) 5 mg PO Q6H PRN PRN PRN Reason: Pain Score 6-10/10 Last Admin: 08/08/19 23:10 Dose: 5 mg Documented by: Sodium Chloride () 10 - 40 ml IV UD PRN PRN Reason: SALINE FLUSH Last Admin: 08/12/19 09:38 Dose: 20 ml Documented by: Sodium Chloride () 500 ml IV BOLUS PRN PRN Reason: VASO-VAGAL PROTOCOL Tamsulosin HCl (Flomax) 0.4 mg PO DINNER [facility] Last Admin: 08/11/19 18:24 Dose: 0.4 mg Documented by: Warfarin Sodium (Coumadin (Pbkc)) 2.5 mg PO X1 ONE Stop: 08/12/19 17:01 Last Admin: 08/12/19 11:53 Dose: 2.5 mg Documented by: Discharge Activity: May Not Drive Weight Bearing Status: Weight bearing as tolerated Call your doctor if you observe: Fever of 101 or Higher, Numbness or Tingling, Inability to urinate, Inability to have a bowel movement, Shortness of breath, Dizziness, Fainting spells, Chest pain, Prolonged hiccoughing, Increased palpitations (irregular heartbeat), Calf discomfort Home Medications: Medications to take at Discharge Doxazosin Mesylate [Cardura] 4 mg PO DAILY 08/05/19 Tamsulosin HCl 0.4 mg PO DINNER 08/05/19 Amlodipine [Norvasc] 2.5 mg PO DAILY #30 tab 08/12/19 Aspirin [Aspirin, Baby] 81 mg PO DAILY@0800 #30 tab.chew 08/12/19 Atorvastatin Calcium [Lipitor] 80 mg PO QHS #30 tab 08/12/19 Carvedilol [Coreg (Beta Latrice)] 6.25 mg PO BID #30 tab 08/12/19 Ciprofloxacin [Cipro] 500 mg PO BID #7 tab 08/12/19 Clopidogrel Bisulfate [Plavix] 75 mg PO DAILY #30 tab 08/12/19 Furosemide [Lasix] 40 mg PO DAILY #30 tab 08/12/19 Isosorbide Mononitrate [Imdur] 30 mg PO DAILY #30 tab 08/12/19 Nitroglycerin (INPATIENT USE) [Nitrostat] 0.4 mg SUBLINGUAL Q5M PRN #30 tab.subl 08/12/19 Potassium Chloride [K-Dur] 40 meq PO BID #30 tab 08/12/19 Warfarin [Coumadin ([facility])] 2.5 mg PO DAILY #30 tab 08/12/19 hydrALAZINE [Apresoline] 10 mg PO TID #90 tab 08/12/19 Following Prescrptions Were Given to Patient: hydrALAZINE [Apresoline] 10 mg PO TID #90 tab Transmission Status: Received by [facility] Aspirin [Aspirin, Baby] 81 mg PO DAILY@0800 #30 tab.chew Transmission Status: Received by [facility] Ciprofloxacin [Cipro] 500 mg PO BID #7 tab Transmission Status: Received by [facility] Carvedilol [Coreg (Beta Latrice)] 6.25 mg PO BID #30 tab Transmission Status: Received by [facility] Warfarin [Coumadin ([facility])] 2.5 mg PO DAILY #30 tab Transmission Status: Received by [facility] Isosorbide Mononitrate [Imdur] 30 mg PO DAILY #30 tab Transmission Status: Received by [facility] Potassium Chloride [K-Dur] 40 meq PO BID #30 tab Transmission Status: Received by [facility] Furosemide [Lasix] 40 mg PO DAILY #30 tab Transmission Status: Received by [facility] Atorvastatin Calcium [Lipitor] 80 mg PO QHS #30 tab Transmission Status: Received by [facility] Nitroglycerin (INPATIENT USE) [Nitrostat] 0.4 mg SUBLINGUAL Q5M PRN #30 tab.subl PRN Reason: Cardiac/Chest Pain Transmission Status: Received by [facility] Amlodipine [Norvasc] 2.5 mg PO DAILY #30 tab Transmission Status: Received by [facility] Clopidogrel Bisulfate [Plavix] 75 mg PO DAILY #30 tab Transmission Status: Received by [facility] Other Amb Orders: Phase II, Outpatient Cardiac Rehab Location: None Selected Primary Care Physician: Manjit Colmenares DO [Primary Care Provider] - Please follow up with your Primary Care Physician in: in 1-2 week Please Follow Up With: Andres Lemus MD When: as scheduled Please Follow Up With: Amauri Shea DO When: in 2 weeks Medical Necessity - Tobacco Use Smoking Status: Never smoker Tobacco Use: Non-smoker Meaningful Use Info Meaningful Use Diagnoses (Choose all that apply): None applicable Code Visit Inpatient E&M: 62470 Disch Hosp
== END 2019-08-12 12:55 | disposition home or self-care (01) | DRG 246 ==
LOC: ED 14:02 → ICU 18:03 → PCU 08-09 12:51 → ICU 08-12 10:44
PROVIDERS: Family Medicine; Internal Medicine Cardiovascular Disease; Internal Medicine Critical Care Medicine; Admitting Provider Internal Medicine; Emergency Provider Emergency Medicine; Family Provider Family Medicine; PCP Family Medicine; Referring Provider Internal Medicine; Visit Provider Internal Medicine
DX: I21.4 Non-ST elevation (NSTEMI) myocardial infarction (principal); I49.01 Ventricular fibrillation; I50.21 Acute systolic (congestive) heart failure; J96.01 Acute respiratory failure with hypoxia; J15.6 Pneumonia due to other Gram-negative bacteria; I46.2 Cardiac arrest due to underlying cardiac condition; N17.9 Acute kidney failure, unspecified; I48.92 Unspecified atrial flutter; R40.2432 Glasgow coma scale score 3-8, at arrival to emergency department; E87.6 Hypokalemia; N40.0 Benign prostatic hyperplasia without lower urinary tract symptoms; I25.10 Atherosclerotic heart disease of native coronary artery without angina pectoris; E11.9 Type 2 diabetes mellitus without complications; R00.1 Bradycardia, unspecified; E78.5 Hyperlipidemia, unspecified; I11.0 Hypertensive heart disease with heart failure
CPT/HCPCS: 31500; 31720; 36415; 36600; 51702; 70450; 71045; 71046; 74018; 80048; 80053; 82803; 82962; 83735; 83880; 84100; 84484; 85025; 85027; 85347; 85610; 85730; 87070; 87077; 87186; 87205; 92928; 93005; 93306; 93454; 94002; 94003; 94660; 95831; 97110; 97116; 97162; 97166; 97530; 97802; 99251; 99285; C1760; J7030; J7040; Q9957; A4216; C1725; C1751; C1769; C1874; C1887; C1894; C8929; C9600; G0463; J1940; J3490; Q9967

== ENCOUNTER → 2019-08-29 15:17 | Outpatient (CLI) | payer OTHER, SELFPAY ==
[2019-08-29 14:06] VITALS: BMI 28.6
[2019-08-29 16:05] LABS: Absolute Neutrophil Count 5.2 X10^3/uL (2.0-7.7); Basophil# 0.08 X10^3/uL; Basophil% 0.9 % (0-1); Eosinophil# 0.21 X10^3/uL; Eosinophils% 2.4 % (0-5); Hematocrit 40.7 % (40-54); Hemoglobin 13.7 g/dL (13.0-16.5); Lymphocyte % 29.4 % (19-41); Mean Corp Hgb Conc 33.7 g/dL (32-36); Mean Corpuscular Hgb 29.5 pg (27.0-32.0); Mean Corpuscular Volume 87.7 fL (80-94); Mean Platelet Vol. 9.4 fl (6.2-12.0); Monocyte# 0.71 X10^3/uL; NRBC Flagged by Analyzer 0 % (0-5); Neutrophil # 5.16 X10^3/uL (2.7-7.7); Neutrophil % 58.4 % (47-70); Platelet Count 254 K/mm3 (150-450); RBC Distribution Width CV 12.3 % (11.6-14.6); RBC Distribution Width SD 39.4 fl (35.1-43.9); Red Blood Count 4.64 M/mm3 (4.6-6.2); White Blood Count 8.8 K/mm3 (4.4-11.0)
[2019-08-29 16:31] LABS: International Normalized Ratio 1.2; Prothrombin Time (Protime)PT. 14.9 SECONDS (11.7-14.9)
[2019-08-29 16:33] LABS: Anion Gap 5 (5-15); BUN 34 mg/dL (7-18); BUN/Creat Ratio 16.6 RATIO (10-20); Calcium,Total 9.7 mg/dL (8.5-10.1); Chloride 106 mmol/L (98-107); Creatinine, Serum 2.05 mg/dL (0.70-1.30); EST Glomerular Filtration Rate 34 mL/min (>60); Est Glom Filt Rate - Afr Amer 41 mL/min (>60); Glucose 114 mg/dL (74-106); Potassium 3.3 mmol/L (3.5-5.1); Sodium Level 139 mmol/L (136-145)
== END ==
PROVIDERS: Internal Medicine Cardiovascular Disease; Family Provider Family Medicine; PCP Family Medicine; Referring Provider Physician Assistant Medical; Visit Provider Physician Assistant Medical
DX: I48.92 Unspecified atrial flutter (principal); I25.10 Atherosclerotic heart disease of native coronary artery without angina pectoris; I25.2 Old myocardial infarction; I10 Essential (primary) hypertension; I42.9 Cardiomyopathy, unspecified; Z79.01 Long term (current) use of anticoagulants
CPT/HCPCS: 36415; 80048; 85025; 85610

== ENCOUNTER → 2019-12-10 10:15 | Outpatient (CLI) | payer OTHER, SELFPAY ==
[2019-12-10 09:17] VITALS: BMI 29.4
[2019-12-10 12:44] LABS: International Normalized Ratio 1.2; Prothrombin Time (Protime)PT. 15.4 SECONDS (11.7-14.9)
== END ==
PROVIDERS: PCP Family Medicine; Referring Provider Nurse Practitioner Family; Visit Provider Nurse Practitioner Family
DX: Z79.01 Long term (current) use of anticoagulants (principal)
CPT/HCPCS: 36415; 85610

== ENCOUNTER → 2022-08-07 | Outpatient (CLI) | payer OTHER, SELFPAY ==
[2022-08-07 12:22] LABS: Absolute Lymphocyte Count 2.58 X10^3/uL (0.83-4.51); Absolute Neutrophil Count 5.6 X10^3/uL (2.0-7.7); Basophil# 0.05 X10^3/uL; Basophil% 0.5 % (0-1); Eosinophil# 0.13 X10^3/uL; Eosinophils% 1.4 % (0-5); Hematocrit 42.1 % (40-54); Hemoglobin 14.1 g/dL (13.0-16.5); Lymphocyte # 2.58 X10^3/ul (0.83-4.51); Lymphocyte % 28.3 % (19-41); Mean Corp Hgb Conc 33.5 g/dL (32-36); Mean Corpuscular Hgb 30.6 pg (27.0-32.0); Mean Corpuscular Volume 91.3 fL (80-94); Mean Platelet Vol. 10.5 fl (6.2-12.0); Monocyte# 0.77 X10^3/uL; Monocyte% 8.4 % (0-10); NRBC Flagged by Analyzer 0 % (0-5); Neutrophil # 5.55 X10^3/uL (2.7-7.7); Neutrophil % 60.9 % (47-70); Platelet Count 173 K/mm3 (150-450); RBC Distribution Width CV 13.2 % (11.6-14.6); RBC Distribution Width SD 44.1 fl (35.1-43.9); Red Blood Count 4.61 M/mm3 (4.6-6.2); White Blood Count 9.1 K/mm3 (4.4-11.0)
[2022-08-07 12:45] LABS: Anion Gap 6 (5-15); BUN 21 mg/dL (7-18); BUN/Creat Ratio 17.6 RATIO (10-20); Calcium,Total 10.1 mg/dL (8.5-10.1); Chloride 107 mmol/L (98-107); Creatinine, Serum 1.19 mg/dL (0.70-1.30); EST Glomerular Filtration Rate 63 mL/min (>60); Est Glom Filt Rate - Afr Amer 76 mL/min (>60); Glucose 116 mg/dL (74-106); Sodium Level 139 mmol/L (136-145)
[2022-08-07 12:50] LABS: BNP,B-Type NATRIURETIC PEPTIDE 204.2 pg/mL (0-100)
== END | disposition home or self-care (01) ==
LOC: LAB 11:29
PROVIDERS: PCP Family Medicine; Visit Provider Nurse Practitioner Family
DX: I25.5 Ischemic cardiomyopathy (principal); R06.09 Other forms of dyspnea; Z95.5 Presence of coronary angioplasty implant and graft
CPT/HCPCS: 36415; 80048; 83880; 85025

== ENCOUNTER → 2022-08-11 | Outpatient (CLI) | payer SELFPAY, OTHER ==
--- NOTE | 2022-08-11 07:28 | ECHOCS_ITS ---
Reason For Study: CHF Procedure This was a 2D Doppler, Color Flow transthoracic echocardiogram. The study was technically difficult. Contrast injection was performed. Exam performed in department. Left Ventricle Moderately dilated left ventricle. Moderate global left ventricular systolic dysfunction. The left ventricular ejection fraction is 40 %. Stage 3 diastolic dysfunction. Right Ventricle Normal right ventricle. Atria The left atrium is severely enlarged. The right atrium is mildly enlarged. Mitral Valve Mild-Moderate (1-2+) mitral valve insufficiency. Tricuspid Valve Mild tricuspid valve insufficiency. Pulmonary artery systolic pressure is 35 mmHg. Aortic Valve Mild aortic stenosis. Pulmonic Valve The pulmonic valve is not well visualized. Great Vessels Normal sized aortic root. Pericardium/Pleural No pericardial effusion. Medication 22 gauge I.V. with prn adaptor inserted into right arm. Diluted definity 2ml given slow IV push to enhance endocardial definition. MMode/2D Measurements & Calculations LVIDd: 6.2 cm IVSd: 0.67 cm Ao root diam: 3.1 cm LVIDs: 5.2 cm LVPWd: 0.74 cm FS: 17.2 % LAV(MOD-sp4): 137.0 ml LVAd ap4: 37.2 cm2 SV(MOD-sp4): 59.0 ml LVLd ap4: 8.2 cm EDV(MOD-sp4): 141.7 ml EDV(sp4-el): 143.4 ml LVAs ap4: 26.6 cm2 LVLs ap4: 7.2 cm ESV(MOD-sp4): 82.7 ml ESV(sp4-el): 83.5 ml EF(MOD-sp4): 41.6 % EF(sp4-el): 41.8 % SV(sp4-el): 59.9 ml LA A4 area: 35.3 cm2 LA dimension(2D): 4.9 cm RA A4 area: 22.8 cm2 Time Measurements MV dec time: 0.15 sec Doppler Measurements & Calculations MV E max mayank: 84.1 cm/sec Lat Peak E' Mayank: 4.1 cm/sec Med Peak E' Mayank: 3.5 cm/sec MV A max mayank: 28.4 cm/sec E/E' lat: 20.4 E/E' med: 24.0 MV E/A: 3.0 MV V2 max: 98.0 cm/sec MV dec slope: 564.6 cm/sec2 Ao V2 max: 190.3 cm/sec MV max P.8 mmHg Ao max P.5 mmHg MV V2 mean: 43.0 cm/sec Ao V2 mean: 131.3 cm/sec MV mean P.0 mmHg Ao mean P.9 mmHg MV V2 VTI: 27.6 cm Ao V2 VTI: 42.7 cm LV V1 max: 122.6 cm/sec PA V2 max: 128.6 cm/sec TR max mayank: 253.5 cm/sec LV V1 max P.0 mmHg PA V2 mean: 74.9 cm/sec TR max P.7 mmHg LV V1 mean P.2 mmHg LV V1 mean: 82.2 cm/sec LV V1 VTI: 28.4 cm ECHO/Echo Complete W/ Contrast Interpretation Summary Moderately dilated left ventricle. Moderate global left ventricular systolic dysfunction. The left ventricular ejection fraction is 35-40 %. Stage 3 diastolic dysfunction. The left atrium is severely enlarged. The right atrium is mildly enlarged. Mild-Moderate (1-2+) mitral valve insufficiency. Mild aortic stenosis. Ordering Physician: Armando Sanabria Performed By: Leilani Garcia RCS
== END | disposition home or self-care (01) ==
PROVIDERS: PCP Family Medicine; Visit Provider Nurse Practitioner Family
DX: I25.5 Ischemic cardiomyopathy (principal); I50.9 Heart failure, unspecified
CPT/HCPCS: 93306; Q9957; A4216; C8929

== ENCOUNTER → 2022-10-11 | Outpatient (CLI) | payer SELFPAY, OTHER ==
--- NOTE | 2022-10-11 12:44 | STRESSREP ---
Stress Test Report Patient comes date: 10/11/2022 Procedure: Pharmacologic stress nuclear imaging study Indications: Coronary artery disease Consent: Per the patient Procedure: The patient underwent pharmacologic (Regadenoson 0.4mg ) evaluation with a peak heart rate of 64 beats per minute (45%predicted maximal heart rate) and a peak blood pressure of 130/78 mmHg. The baseline ECG demonstrated atrial fibrillation. The peak pharmacologic ECG demonstrated no ischemic changes. [There were no cardiac dysrhythmias pretest, during pharmacologic infusion, or recovery]. [There was no complaint of chest discomfort during pharmacologic infusion or recovery]. The patient was injected with 13.9 millicuries of technetium 99m Cardiolite and subsequently rest SPECT Cardiolite nuclear imaging was obtained in the horizontal long, vertical long, and short axis views. The patient underwent pharmacologic (Regadenoson) evaluation. The patient was injected with 40.7 millicuries of technetium 99m Cardiolite and subsequently stress SPECT Cardiolite nuclear imaging was obtained in the horizontal long, vertical long, and short axis views. A gated Cardiolite study at peak stress was obtained. The examination was stopped secondary to completion of protocol. Rest and stress SPECT Cardiolite nuclear imaging status post realignment, normalization, and attenuation correction demonstrate mild reversible defect in the basal lateral wall. [There is end systolic thickening and brightening]. [The gated Cardiolite study demonstrates myocardial thickening and inward wall motion]. The reported LVEF is 51%. Impression: 1. Pharmacologic (Regadenoson) evaluation 2. Peak pharmacologic ECG with no ischemic changes. 3. [There were no cardiac dysrhythmias pretest, during pharmacologic infusion, or recovery]. 5. Small reversible defect of the lateral basal wall of mild intensity. Suggestive of small area of ischemia. 6. The gated Cardiolite study reports an LVEF of 51%. This note was generated with [email or web address] software. It may contain incorrect words, spelling, and punctuation that were not noted in checking the note before signing.
== END | disposition home or self-care (01) ==
PROVIDERS: PCP Family Medicine; Visit Provider Internal Medicine Cardiovascular Disease
DX: I51.7 Cardiomegaly (principal); R06.09 Other forms of dyspnea
CPT/HCPCS: 78452; 93017; A9500; A4216; J2785

== ENCOUNTER 2022-11-16 08:21 | Day surgery (SDC) | payer SELFPAY, OTHER ==
--- NOTE | 2022-10-24 09:20 | PCM.HP.BLA ---
History and Physical Date of Admission: 11/08/22 The patient presents today for a cardiac catheterization. His most recent stress test was noted to be abnormal. The patient has history of coronary artery disease and cardiomyopathy.? He was admitted to the hospital in 2019 with respiratory failure, pneumonia and atrial fibrillation/flutter.? He has had a V. fib cardiac arrest in the emergency room.? Successfully defibrillated.? Subsequently he has had coronary angiography done.? He was noted to have severe lesion in the mid left circumflex coronary artery.? That was a dominant vessel.? It was successfully treated using a drug-eluting stent. Patient has been complaining of shortness of breath with activity over the last 1 year.? It is more or less stable.? Denies any orthopnea.? No paroxysmal nocturnal dyspnea.? Denies any ankle edema.? No lightheadedness or dizziness.? No syncope or presyncope.? Denies any chest pains. Intake Vital Signs: See EMR Allergies No Known Allergies Allergy (Verified 09/27/22 08:44) Medications See EMR Ejection fraction %: 35 to 39 PFSH Medical History? Arteriosclerosis of coronary artery in patient with history of myocardial infarction Atrial flutter Cardiac arrest with ventricular fibrillation Cardiomyopathy Diabetes Hypertension LV dysfunction Surgical History? Stented coronary artery (08/11/19) Social History? Smoking Status:? Never smoker alcohol intake:? current alcohol intake frequency: holidays/special occasions only substance use type:? does not use caffeine:? Yes (rarely) ROS Const Const: Positive for daytime sleepiness; Negative for fatigue, weakness, headache(s), frequent falls, difficulty sleeping or excessive sweating Eyes Eyes: Negative for loss of peripheral vision, transient loss of vision, blurry vision, double vision or tunnel vision ENT ENT: Negative for headache(s), dizziness, Nosebleed/epistaxis or balance problems Cardio Chest Pain: No Palpitations: No Edema: Bilateral (occasionally) Resp Respiratory: Positive for SOB with activity; Negative for SOB at rest, SOB orthopnea\SOB lying down, Cough or paroxysmal nocturnal dyspnea GI GI: Negative nausea, vomiting, heartburn or black,tarry stools : Negative for hematuria Musc Musc: Positive for muscle weakness; Negative for muscle aches/ myalgia, joint pain or balance problems Skin Skin: Negative non-healing lesions, rash or unusual bruising Neuro Neuro: Negative for dizziness, lightheadedness, near syncope, syncope, frequent falls, headache(s), weakness, blurry vision, double vision or lack of coordination Kanu Hematologic/Lymphatic: Negative for easy bleeding or easy bruising Endo Endo: Negative for fatigue, excessive sweating or increased thirst/drinking Psych Psych: Negative for anxiety or depression Allergy Allergy/Immunology: Negative for hives and Negative for rash Cardiology Exam Const Appearance: comfortable and no acute distress Nutritional Appearance: well nourished Neck Neck: no JVD Carotids: Negative bruit Chest Auscultation: Bilateral: Clear to Auscultation Cardio Rate: regular Rhythm: irregular rhythm Heart sounds: S1 normal and S2 normal Neuro General: patient alert, patient awake and patient oriented x3 Extremities Lower Extremity Edema: None: Bilateral Supplemental Info Supplemental Information Stress test 10/11/2022: Procedure: Pharmacologic stress nuclear imaging study Indications: Coronary artery disease Consent: Per the patient Procedure: The patient underwent pharmacologic (Regadenoson 0.4mg ) evaluation with a peak heart rate of 64 beats per minute (45%predicted maximal heart rate) and a peak blood pressure of 130/78 mmHg. The baseline ECG demonstrated atrial fibrillation. The peak pharmacologic ECG demonstrated no ischemic changes. [There were no cardiac dysrhythmias pretest, during pharmacologic infusion, or recovery]. [There was no complaint of chest discomfort during pharmacologic infusion or recovery]. The patient was injected with 13.9 millicuries of technetium 99m Cardiolite and subsequently rest SPECT Cardiolite nuclear imaging was obtained in the horizontal long, vertical long, and short axis views. The patient underwent pharmacologic (Regadenoson) evaluation. The patient was injected with 40.7 millicuries of technetium 99m Cardiolite and subsequently stress SPECT Cardiolite nuclear imaging was obtained in the horizontal long, vertical long, and short axis views. A gated Cardiolite study at peak stress was obtained. The examination was stopped secondary to completion of protocol. Rest and stress SPECT Cardiolite nuclear imaging status post realignment, normalization, and attenuation correction demonstrate mild reversible defect in the basal lateral wall. [There is end systolic thickening and brightening]. [The gated Cardiolite study demonstrates myocardial thickening and inward wall motion]. The reported LVEF is 51%. Impression: 1. Pharmacologic (Regadenoson) evaluation 2. Peak pharmacologic ECG with no ischemic changes. 3. [There were no cardiac dysrhythmias pretest, during pharmacologic infusion, or recovery]. 5. Small reversible defect of the lateral basal wall of mild intensity. Suggestive of small area of ischemia. 6. The gated Cardiolite study reports an LVEF of 51%. Echocardiogram 08/11/2022: Interpretation Summary Moderately dilated left ventricle. Moderate global left ventricular systolic dysfunction. The left ventricular ejection fraction is 35-40 %. Stage 3 diastolic dysfunction. The left atrium is severely enlarged. The right atrium is mildly enlarged. Mild-Moderate (1-2+) mitral valve insufficiency. Mild aortic stenosis. Assessment and Plan Assessment and Plan (1) Dyspnea on exertion: ?Status:?Chronic ?Plan: History of coronary artery disease and cardiomyopathy.? Last echocardiogram showed ejection fraction of 35 to 40%.? This has been stable.? Patients most recent stress test from 10/11/2021 was noted to be abnormal. He will proceed with a cardiac catheterization. (2) Coronary artery disease: ?Status:?Acute ?Plan: History of stent placement to the dominant left circumflex.? Patients most recent stress test from 10/11/2021 was noted to be abnormal. He will proceed with a cardiac catheterization.
--- NOTE | 2022-11-06 08:07 | RAD_ITS ---
STUDY: X-RAY CHEST REASON FOR EXAM: Male, 77 years old. Shortness of breath. TECHNIQUE: Frontal and lateral views of the chest. COMPARISON: August 09, 2019. FINDINGS: Right internal jugular catheter removed since the prior study. Low volume inspiration. There is no demonstrated pleural abnormality. Stable cardiomegaly. Normal mediastinum and pola. Normal visualized pulmonary arteries. Stable aortic tortuosity with calcification. Diffuse thoracic spondylosis unchanged. Normal visualized ribs, clavicles, and shoulders. There is no demonstrated abnormality of the visualized soft tissue structures of the upper abdomen. RAD/Chest PA and Lateral IMPRESSION: Stable chest with no acute superimposed findings since the prior study. Electronically Signed: Wesley Ybarra, at 10:20 EST ,
[2022-11-06 08:47] LABS: Hematocrit 42.7 % (40-54); Hemoglobin 14.2 g/dL (13.0-16.5); Mean Corp Hgb Conc 33.3 g/dL (32-36); Mean Corpuscular Hgb 30.4 pg (27.0-32.0); Mean Corpuscular Volume 91.4 fL (80-94); Mean Platelet Vol. 10.3 fl (6.2-12.0); Platelet Count 157 K/mm3 (150-450); RBC Distribution Width CV 12.9 % (11.6-14.6); RBC Distribution Width SD 42.3 fl (35.1-43.9); Red Blood Count 4.67 M/mm3 (4.6-6.2); White Blood Count 7.5 K/mm3 (4.4-11.0)
[2022-11-06 08:53] LABS: International Normalized Ratio 1.3; Prothrombin Time (Protime)PT. 15.4 SECONDS (11.7-14.9)
[2022-11-06 09:21] LABS: Anion Gap 6 (5-15); BUN 20 mg/dL (7-18); BUN/Creat Ratio 14.5 RATIO (10-20); Calcium,Total 10.2 mg/dL (8.5-10.1); Chloride 111 mmol/L (98-107); Creatinine, Serum 1.38 mg/dL (0.70-1.30); EST Glomerular Filtration Rate 53 mL/min (>60); Est Glom Filt Rate - Afr Amer 64 mL/min (>60); Glucose 125 mg/dL (74-106); Potassium 4.1 mmol/L (3.5-5.1); Sodium Level 142 mmol/L (136-145)
[2022-11-07 09:07] VITALS: BMI 31.3
--- NOTE | 2022-11-16 10:34 | CL.D_ITS ---
Patient Name: MARY MARTINEZ Study Date: 11/16/2022 Performing: Rhoda Yun MD Ht: 67 inches 170.18 cm : 1945 Wt: 200 lbs 90.72 kg Age: 77 Gender: male BSA: 2.02 PROCEDURE(S) PERFORMED [id number])[facility] CLINICAL PROFILE AND INDICATIONS Indications: Stable Known CAD Heart Failure: None Stress/Imaging Stress Test w/SPECT MPI: Yes Result: Positive Intermediate RiskStress Test with SPECT MPI: Positive Intermediate Risk CAD Presentations: Stable angina. CONCLUSIONS 90-95% Mid LAD; 95% Prox D1 Stent to LCX patent 60-65% Mid RCA (small vessel) RECOMMENDATIONS Surgery consult for coronary revascularization DESCRIPTION OF PROCEDURE The patient arrived to the procedure lab. The risks and benefits of the procedure as well as a full description of our services here and current unavailability of surgical backup were fully explained to the patient and/or their significant other prior to the catheterization. The Timeout was completed, verifying the correct patient and procedure. The patient's procedural site was prepped and draped in the usual fashion. Local anesthetic was given subcutaneously to right radial region with Lidocaine 2%. Using a modified Seldinger technique, arterial access was obtained via the right radial artery, a 6Fr sheath was inserted. Left Coronary Artery selective angiography was performed in multiple views using a 5 Fr. 4.0 [place] catheter. Right Coronary Artery selective angiography was then performed in multiple views using a 5 Fr. 4.0 Claypool catheter.The arterial sheath was pulled and a TR Band was applied for hemostasis CORONARY ANGIOGRAPHY DOMINANCE: Co- Dominant LEFT ANTERIOR DESCENDING ARTERY: LAD: Tubular 95% Mid lesion in LAD DIAGONAL 1: Tubular 95% Proximal lesion in 1st Diagonal OM 2: Calcified 99% Ostial lesion in 2nd OM RAMUS: Tubular 80% Proximal lesion in Ramus RIGHT CORONARY ARTERY: RCA: Tubular 65% Proximal lesion in RCA COMPLICATIONS No Complications PROCEDURE MEDICATIONS Versed 1 mg IV Fentanyl 50 mcg IV Oxygen: 2 L/min via nasal cannula Heparin given IA 11/16/2022 10:03:44 Verapamil 2.5mg, Ntg 200mcgs, 2000 units of Heparin given IA 11/16/2022 10:03:44 IV Bolus: .9 NaCl 250 ml total 11/16/2022 10:05:56 SUMMARY OF HEMODYNAMIC DATA Time AIR REST ECG 08:42:11 AO 117/72 (88) SA 10:05:35 AIR REST 10:25:36 Signed By Rhoda Yun MD On 11/16/2022 10:33:26 Rhoda Yun MD
== END 2022-11-16 11:45 | disposition home or self-care (01) ==
PROVIDERS: PCP Family Medicine; Referring Provider Internal Medicine Cardiovascular Disease; Visit Provider Internal Medicine Cardiovascular Disease
DX: I25.118 Atherosclerotic heart disease of native coronary artery with other forms of angina pectoris (principal); I42.9 Cardiomyopathy, unspecified; I25.2 Old myocardial infarction; I10 Essential (primary) hypertension; Z95.5 Presence of coronary angioplasty implant and graft; Z79.01 Long term (current) use of anticoagulants; Z79.899 Other long term (current) drug therapy; Z79.82 Long term (current) use of aspirin
CPT/HCPCS: 36415; 71046; 80048; 85027; 85610; 85730; 93454; 99152; 99153; J7040; C1769; C1894; Q9967

== ENCOUNTER → 2022-12-20 | Outpatient (CLI) | payer OTHER, SELFPAY ==
[2022-12-20 09:12] LABS: Hematocrit 31.4 % (40-54); Hemoglobin 10.4 g/dL (13.0-16.5); Mean Corp Hgb Conc 33.1 g/dL (32-36); Mean Corpuscular Hgb 31.4 pg (27.0-32.0); Mean Corpuscular Volume 94.9 fL (80-94); Mean Platelet Vol. 9.2 fl (6.2-12.0); Platelet Count 348 K/mm3 (150-450); RBC Distribution Width CV 13.8 % (11.6-14.6); RBC Distribution Width SD 47.8 fl (35.1-43.9); Red Blood Count 3.31 M/mm3 (4.6-6.2); White Blood Count 8.3 K/mm3 (4.4-11.0)
[2022-12-20 09:34] LABS: Anion Gap 6 (5-15); BUN 24 mg/dL (7-18); BUN/Creat Ratio 12.1 RATIO (10-20); Calcium,Total 9.8 mg/dL (8.5-10.1); Chloride 103 mmol/L (98-107); Creatinine, Serum 1.99 mg/dL (0.70-1.30); EST Glomerular Filtration Rate 35 mL/min (>60); Est Glom Filt Rate - Afr Amer 42 mL/min (>60); Glucose 109 mg/dL (74-106); Potassium 3.3 mmol/L (3.5-5.1); Sodium Level 138 mmol/L (136-145)
== END | disposition home or self-care (01) ==
LOC: LAB.FUTURE 08:51 → LAB 09:01
PROVIDERS: PCP Family Medicine
DX: I25.10 Atherosclerotic heart disease of native coronary artery without angina pectoris (principal); N17.9 Acute kidney failure, unspecified
CPT/HCPCS: 36415; 80048; 85027

== ENCOUNTER → 2022-12-26 | Outpatient (CLI) | payer OTHER, SELFPAY ==
[2022-12-26 11:40] LABS: Anion Gap 5 (5-15); BUN 23 mg/dL (7-18); BUN/Creat Ratio 11.2 RATIO (10-20); Calcium,Total 10.2 mg/dL (8.5-10.1); Chloride 104 mmol/L (98-107); Creatinine, Serum 2.05 mg/dL (0.70-1.30); EST Glomerular Filtration Rate 33 mL/min (>60); Est Glom Filt Rate - Afr Amer 40 mL/min (>60); Glucose 105 mg/dL (74-106); Potassium 3.6 mmol/L (3.5-5.1); Sodium Level 138 mmol/L (136-145)
== END | disposition home or self-care (01) ==
LOC: LAB 10:14
PROVIDERS: PCP Family Medicine; Referring Provider Internal Medicine Cardiovascular Disease; Visit Provider Internal Medicine Cardiovascular Disease
DX: I25.10 Atherosclerotic heart disease of native coronary artery without angina pectoris (principal)
CPT/HCPCS: 36415; 80048